=== PATIENT | female | born 1935 | race Caucasian/White ===

== ENCOUNTER 2016-09-11 11:57 | Inpatient (IN) | payer MEDICARE, OTHER ==
[~2016-09-11] VITALS: Ht 157.5 cm; Wt 44.5 kg
[~2016-09-11 11:57] MED LIST: ACETAMINOP160 MG/54 ORAL; ACTONEL35 MG ORAL; BENAZEPRIL HCL20 MG ORAL; COLACE100 MG ORAL; CYMBALTA30 MG ORAL; LASTACAFT3 ML BOTH EARS; LEVOTHYROXINE100 MC1 ORAL; LUMIGAN2.5 ML BOTH EYES; OMEPRAZOLE10 M1 ORAL; RISPERDAL0.5 MG ORAL; TAMSULOSIN HCL0.4 MG ORAL; VITAMIN B-1001 EACH PO; VITAMIN D400 INTLU ORAL
[2016-09-11 12:18] VITALS: BP 99/57
[2016-09-11] MEDS ORDERED: LEVOTHYROXINE88 MCG ORAL (12:41)
[2016-09-11] MEDS ORDERED: SULFAMETHOXAZO480 ML ORAL (12:41)
[2016-09-11] MEDS ORDERED: PRILOSEC OTC20 MG ORAL (12:41)
[2016-09-11] MEDS ORDERED: RISEDRONATE SOD35 MG PO (12:41)
[2016-09-11] MEDS ORDERED: ABILIFY2 MG ORAL (12:43)
--- NOTE | 2016-09-11 12:44 | Emergency Room Report ---
History of Present Illness General Chief Complaint: Nausea, Vomiting, and Diarrhea Source: Family Member, Medical Record Present Illness HPI Patient present with daughter for complaints of decreased oral intake patient has had increased vomiting and diarrhea over the past 2 days as well Daughter feels that the patient has also had difficulty swallowing Is no reports of fevers Patient is incontinent No other reports a fall or trauma Patient herself has severe underlying dementia history is not obtained and is very limited from the patient Allergies: Coded Allergies: NO KNOWN ALLERGIES (Unverified Allergy, Unknown, 03/22/15) Patient History Past Medical History: see triage record Pertinent Family History: none Reviewed Nursing Documentation: PMH: Agreed, PSxH: Agreed Nursing Documentation-PMH Past Medical History: No History, Except For Hx Hypertension: Yes Hx Neurological Problems: Yes - ambulate with assistance Review of Systems All Other Systems: negative except mentioned in HPI Physical Exam Vital Signs Date Time Temp Pulse Resp B/P Pulse Ox O2 Delivery O2 Flow Rate FiO2 09/11/16 12:04 96.8 99 18 97/62 94 Room Air Sp02 EP Interpretation: reviewed, normal General Appearance: no apparent distress Head: normocephalic, atraumatic Eyes: bilateral eye EOMI, bilateral eye PERRL ENT: hearing grossly normal, TMs + canals normal, uvula midline, dry mucus membranes Neck: full range of motion, supple, no meningismus, no bony tend Respiratory: no respiratory distress, no retraction, no accessory muscle use, crackles - Both lower lobes Cardiovascular #1: normal peripheral pulses, regular rate, rhythm, no edema, no gallop, no JVD, no murmur Gastrointestinal: normal bowel sounds, non tender, soft, no mass, no organomegaly, non-distended, no guarding, no hernia, no pulsatile mass, no rebound Genitourinary: no CVA tenderness Musculoskeletal: other - Patient does not follow full commands however no obvious focal deficit Neurologic: responsive, sensory intact Psychiatric: mood/affect normal Skin: warm/dry, palpation normal Lymphatic: normal inspection, no adenopathy Medical Decision Making Diagnostic Impression: Primary Impression: Nausea, vomiting, and diarrhea Additional Impressions: UTI (urinary tract infection) Sepsis ER Course Multiple differentials are considered including but not limited to intracranial , hemodynamic infectious pathology Patient's urine sample did show significant bacteria Patient's also clinically significantly dehydrated Initiated on broad-spectrum antibiotics and admitted for further inpatient care, Labs Test 09/11/16 13:00 09/12/16 05:20 White Blood Count 13.7 K/UL (4.8-10.8) Red Blood Count 4.30 M/UL (4.20-5.40) Hemoglobin 11.2 G/DL (12.0-16.0) Hematocrit 34.7 % (37.0-47.0) Mean Corpuscular Volume 81 FL (80-99) Mean Corpuscular Hemoglobin 26.0 PG (27.0-31.0) Mean Corpuscular Hemoglobin Concent 32.2 G/DL (32.0-36.0) Red Cell Distribution Width 12.5 % (11.6-14.8) Platelet Count 231 K/UL (150-450) Mean Platelet Volume 6.8 FL (6.5-10.1) Neutrophils (%) (Auto) 83.1 % (45.0-75.0) Lymphocytes (%) (Auto) 5.0 % (20.0-45.0) Monocytes (%) (Auto) 11.3 % (1.0-10.0) Eosinophils (%) (Auto) 0.0 % (0.0-3.0) Basophils (%) (Auto) 0.6 % (0.0-2.0) Prothrombin Time 10.7 SEC (9.30-11.50) Prothromb Time International Ratio 1.1 (0.9-1.1) Activated Partial Thromboplast Time 34 SEC (23-33) Urine Color Yellow Urine Appearance Slightly cloudy Urine pH 6 (4.5-8.0) Urine Specific [place] 1.015 (1.005-1.035) Urine Protein 3+ (NEGATIVE) Urine Glucose (UA) Negative (NEGATIVE) Urine Ketones 1+ (NEGATIVE) Urine Occult Blood 4+ (NEGATIVE) Urine Nitrite Negative (NEGATIVE) Urine Bilirubin Negative (NEGATIVE) Urine Urobilinogen Normal MG/DL (0.0-1.0) Urine Leukocyte Esterase 3+ (NEGATIVE) Urine RBC 5-10 /HPF (0 - 2) Urine WBC 40-60 /HPF (0 - 2) Urine Squamous Epithelial Cells Few /LPF (NONE/OCC) Urine Bacteria Moderate /HPF (NONE) Sodium Level 131 mEQ/L (135-145) Potassium Level 3.6 mEQ/L (3.4-4.9) Chloride Level 90 mEQ/L (98-107) Carbon Dioxide Level 24 mEQ/L (20-30) Anion Gap 17 (5-15) Blood Urea Nitrogen 27 mg/dL (7-23) Creatinine 1.3 mg/dL (0.5-0.9) Estimat Glomerular Filtration Rate mL/min (>60) Glucose Level 120 mg/dL (74-106) Calcium Level 8.7 mg/dL (8.6-10.2) Total Bilirubin < 0.2 mg/dL (0.0-1.2) Aspartate Amino Transf (AST/SGOT) 14 U/L (5-40) Alanine Aminotransferase (ALT/SGPT) 8 U/L (3-33) Alkaline Phosphatase 66 U/L (35-104) Total Creatine Kinase 50 U/L (26-140) Creatine Kinase MB < 1.5 ng/mL (< 3.8) Creatine Kinase MB Relative Index 3.0 Troponin I < 0.30 ng/mL (<=0.30) Total Protein 6.8 g/dL (6.6-8.7) Albumin 3.3 g/dL (3.5-5.2) Globulin 3.5 g/dL Albumin/Globulin Ratio 0.9 (1.0-2.7) Lipase 23 U/L (< 60) Rhythm Strip Diag. Results EP Interpretation: yes Rate: 88 Rhythm: NSR, no PVC's, no ectopy Chest X-Ray Diagnostic Results EP Interpretation: Yes Findings: no consolidation, no effusion, no pneumothorax Number of Views: 1 CT/MRI/US Diagnostic Results CT/MRI/US Diagnostic Results : Impression CT abdomen pelvisImpression: Gas within the endometrium. Correlate with any history of recent instrumentation. Otherwise, the possibility of endometritis should be considered Questionable trace pelvic fluid, uncertain etiology but not physiologic in a postmenopausal patient No definite acute process otherwise Diverticulosis. No evidence of diverticulitis Bilateral prominent extrarenal pelves, also demonstrated previously Other findings as noted, including posterior-lateral pericardial thickening versus fluid, degenerative spondylosis, right hip hardware, posterior dependent atelectatic changes, old granulomas calcifications within the liver, old thoracic and lumbar compression fractures CT head: no acute disease Last Vital Signs Date Time Temp Pulse Resp B/P Pulse Ox O2 Delivery O2 Flow Rate FiO2 09/11/16 12:18 97.0 98 16 99/57 96 Room Air Status: improved Disposition: ADMITTED INPATIENT Condition: Serious ESTEBAN CORREA D.O. Sep 11, 2016 12:44
[2016-09-11 13:20] LABS: BASOPHILS % (AUTO) 0.6 % (0.0-2.0); MEAN CORPUSCULAR HGB CONC 32.2 G/DL (32.0-36.0); MEAN CORPUSCULAR VOLUME 81 FL (80-99); MEAN PLATELET VOLUME 6.8 FL (6.5-10.1); MONOCYTES % (AUTO) 11.3 % (1.0-10.0); NEUTROPHILS % (AUTO) 83.1 % (45.0-75.0); PLATELET COUNT 231 K/UL (150-450); RED CELL DISTRIBUTION WIDTH 12.5 % (11.6-14.8); WHITE BLOOD COUNT 13.7 K/UL (4.8-10.8)
[2016-09-11 13:21] LABS: APPEARANCE,URINE SLIGHTLY CLOUDY; KETONES,URINE 1+ (NEGATIVE); LEUKOCYTE ESTERASE ,URINE 3+ (NEGATIVE); NITRITE,URINE NEGATIVE (NEGATIVE); PH,URINE 6 (4.5-8.0); PROTEIN,URINE 3+ (NEGATIVE); UROBILINOGEN,URINE NORMAL MG/DL (0.0-1.0)
[2016-09-11 13:25] LABS: INR 1.1 (0.9-1.1); PROTHROMBIN TIME 10.7 SEC (9.30-11.50)
[2016-09-11 13:35] LABS: BACTERIA,URINE MODERATE /HPF; SQUAMOUS EPITHELIAL CELL,UR FEW /LPF (NONE/OCC); WBC,URINE 40-60 /HPF (0 - 2)
[2016-09-11 13:40] LABS: ALANINE AMINOTRANSFERASE 8 U/L (3-33); ALBUMIN/GLOBULIN RATIO 0.9 (1.0-2.7); ANION GAP 17 (5-15); ASPARTATE AMINO TRANSFERASE 14 U/L (5-40); CALCIUM 8.7 mg/dL (8.6-10.2); CARBON DIOXIDE 24 mEQ/L (20-30); CHLORIDE 90 mEQ/L (98-107); CREATININE 1.3 mg/dL (0.5-0.9); HEMOLYSIS 6; LIPASE 23 U/L (< 60); POTASSIUM 3.6 mEQ/L (3.4-4.9); SODIUM 131 mEQ/L (135-145); TOTAL PROTEIN 6.8 g/dL (6.6-8.7); TROPONIN I < 0.30 ng/mL (<=0.30)
[2016-09-11] MEDS ORDERED: cefTRIAXone 1 GM in NS 55 ML IVPB ONE (13:45)
--- NOTE | 2016-09-11 13:48 | Diagnostic Imaging Report ---
Indication: Altered mental status Technique: spiral acquisitions obtained through the brain. Angled axial and coronal 5 x 5 mm slices were reconstructed. No IV contrast utilized. Radiation dose was minimized using automated exposure control Total dose length product 1361 mGycm. CTDIvol(s) 70 mGy Comparison: 03/22/2015 FINDINGS: No acute hemorrhage or edema. No mass effect or midline shift. There is age-related enlargement of the ventricles and extra axial CSF spaces. There is periventricular deep white matter ischemic change. Normal mason-white differentiation. Old lacunar infarcts are seen in the basal ganglia bilaterally. Visualized orbits are unremarkable. There is minimal ethmoid sinus disease on the right. The mastoids are clear.. Intact calvarium. Compared to the prior exam, previously demonstrated frontal scalp hematoma is no longer evident IMPRESSION: Chronic and age-related changes. Negative for acute intracranial bleed or mass effect The CT scanner at [facility] is accredited by the [employer] and the scans are performed using protocols designed to limit radiation exposure to as low as reasonably achievable to attain images of sufficient resolution adequate for diagnostic evaluation
[2016-09-11 13:50] LABS: CKMB < 1.5 ng/mL (< 3.8)
[2016-09-11 14:24] VITALS: BP 96/58
--- NOTE | 2016-09-11 14:48 | Diagnostic Imaging Report ---
Indication: Chest pain Technique: One view of the chest Comparison: 03/22/2015 Findings: Lungs and pleural spaces are clear. Heart size is normal. Aorta is tortuous ectatic and calcified. There is old healed fracture deformity of the mid shaft right clavicle. There are mitral annular calcifications. There are degenerative changes of the shoulders no significant change Impression: No acute process. Findings as noted
--- NOTE | 2016-09-11 14:48 | Diagnostic Imaging Report ---
Indication: VOMITING and diarrhea over the past 2 days Technique: Spiral acquisitions obtained through the abdomen and pelvis. No oral contrast utilized, per emergency room physician request No IV contrast utilized, per referring physician request.. Multiplanar reconstructions were generated. Total dose length product 451 mGycm. CTDIvol(s) 9 mGy Comparison: 11/30/2012 Findings: Lack of enteric contrast limits assessment of the GI tract. The appendix is normal the cecum is somewhat prominent, gas and fluid filled. The remainder of the colon is mostly gas filled. Small bowel loops are prominent, gas and fluid filled, without lorenza distention. There is questionably trace pelvic fluid surrounding the uterus. There are few colonic diverticula again demonstrated. No evidence of diverticulitis. The distal esophagus, stomach, duodenum are unremarkable. Lack of IV contrast limits assessment of the solid organs. Small amount of gas is seen within the endometrium. No definite endometrial thickening is evident. No uterine enlargement. No adnexal mass. The liver contains calcifications, presumably on the basis of old granulomatous disease. Gallbladder, bile ducts, pancreas, spleen, adrenals are unremarkable. There is a prominent right-sided extrarenal pelvis. No lorenza hydronephrosis. There is a prominent left extrarenal pelvis versus parapelvic cyst. Renal cortical cysts described on prior study are not evident on current non-infused exam. No renal calculi. No hydronephrosis, hydroureter, or ureteral calculus demonstrated. The included lung bases demonstrate posterior dependent atelectatic changes. The heart is mildly enlarged. There is posterolateral pericardial thickening versus fluid. The bones demonstrate degenerative proliferative changes of the lumbar spine. There is right hip hardware again demonstrated. Compression fracture deformities of L3, T12, T10 are again noted Impression: Gas within the endometrium. Correlate with any history of recent instrumentation. Otherwise, the possibility of endometritis should be considered Questionable trace pelvic fluid, uncertain etiology but not physiologic in a postmenopausal patient No definite acute process otherwise Diverticulosis. No evidence of diverticulitis Bilateral prominent extrarenal pelves, also demonstrated previously Other findings as noted, including posterior-lateral pericardial thickening versus fluid, degenerative spondylosis, right hip hardware, posterior dependent atelectatic changes, old granulomas calcifications within the liver, old thoracic and lumbar compression fractures The CT scanner at [facility] is accredited by the [employer] and the scans are performed using protocols designed to limit radiation exposure to as low as reasonably achievable to attain images of sufficient resolution adequate for diagnostic evaluation.
[2016-09-11 16:08] VITALS: BP 97/54
[2016-09-11] MEDS ORDERED: RisperiDONE 0.25mg tab ORAL PRN (16:15)
[2016-09-11] MEDS: D5 1/2NS w/KCl 20mEq 1,000 ML IV SCH (16:50)
[2016-09-11] MEDS: Ketotifen Fumarate 0.035% 5ml BOTH EYES SCH (18:19)
--- NOTE | 2016-09-11 19:35 | Geriatric Progress Note ---
Subjective Interval Events Patient brought to ED for several days of anorexia, lethargy. Found in ED to have relative hypotension, apparent volume depletion, and urinalysis c/w UTI. Admitted for tx and further evaluation. PMH: 1. Cognitive cognitive dysfunction, likely cerbrovascular. 2. Major depression. 3. Chronic pain syndrome. 4. Lability of pseudobulbar type. 5. HTN. 6. Legally blind. 7. GERD. 8. Osteoporosis. 9. Recurrent UTI. 10. S/p multiple extremity fxs. 11. Severe aortic stenosis. Initially relatively hypotensive, hydrated and given Ceftriaxone in ED. Currently mental status c/w baseline. Loud aortic systolic murmur. Suprapubic tenderness. Labs with leukocytosis, pyuria. CT abd/pelvis with ? air in uterus. Continue IV hydration, Ceftriaxone. Resume usual medications. Check echo. Dictated #[id number] Geriatric Geriatric Last 24 Hour Vital Signs Date Time Temp Pulse Resp B/P Pulse Ox O2 Delivery O2 Flow Rate FiO2 09/11/16 16:08 97.7 84 20 97/54 91 Room Air 09/11/16 14:29 97.0 88 16 96/58 95 Room Air 09/11/16 14:24 97.0 88 16 96/58 95 Room Air 09/11/16 12:18 97.0 98 16 99/57 96 Room Air 09/11/16 12:04 96.8 99 18 97/62 94 Room Air Laboratory Tests Test 09/11/16 13:00 White Blood Count 13.7 K/UL (4.8-10.8) H Red Blood Count 4.30 M/UL (4.20-5.40) Hemoglobin 11.2 G/DL (12.0-16.0) L Hematocrit 34.7 % (37.0-47.0) L Mean Corpuscular Volume 81 FL (80-99) Mean Corpuscular Hemoglobin 26.0 PG (27.0-31.0) L Mean Corpuscular Hemoglobin Concent 32.2 G/DL (32.0-36.0) Red Cell Distribution Width 12.5 % (11.6-14.8) Platelet Count 231 K/UL (150-450) Mean Platelet Volume 6.8 FL (6.5-10.1) Neutrophils (%) (Auto) 83.1 % (45.0-75.0) H Lymphocytes (%) (Auto) 5.0 % (20.0-45.0) L Monocytes (%) (Auto) 11.3 % (1.0-10.0) H Eosinophils (%) (Auto) 0.0 % (0.0-3.0) Basophils (%) (Auto) 0.6 % (0.0-2.0) Prothrombin Time 10.7 SEC (9.30-11.50) Prothromb Time International Ratio 1.1 (0.9-1.1) Activated Partial Thromboplast Time 34 SEC (23-33) H Urine Color Yellow Urine Appearance Slightly cloudy Urine pH 6 (4.5-8.0) Urine Specific [place] 1.015 (1.005-1.035) Urine Protein 3+ (NEGATIVE) H Urine Glucose (UA) Negative (NEGATIVE) Urine Ketones 1+ (NEGATIVE) H Urine Occult Blood 4+ (NEGATIVE) H Urine Nitrite Negative (NEGATIVE) Urine Bilirubin Negative (NEGATIVE) Urine Urobilinogen Normal MG/DL (0.0-1.0) Urine Leukocyte Esterase 3+ (NEGATIVE) H Urine RBC 5-10 /HPF (0 - 2) H Urine WBC 40-60 /HPF (0 - 2) H Urine Squamous Epithelial Cells Few /LPF (NONE/OCC) Urine Bacteria Moderate /HPF (NONE) H Sodium Level 131 mEQ/L (135-145) L Potassium Level 3.6 mEQ/L (3.4-4.9) Chloride Level 90 mEQ/L (98-107) L Carbon Dioxide Level 24 mEQ/L (20-30) Anion Gap 17 (5-15) H Blood Urea Nitrogen 27 mg/dL (7-23) H Creatinine 1.3 mg/dL (0.5-0.9) H Estimat Glomerular Filtration Rate mL/min (>60) Glucose Level 120 mg/dL (74-106) H Calcium Level 8.7 mg/dL (8.6-10.2) Total Bilirubin < 0.2 mg/dL (0.0-1.2) Aspartate Amino Transf (AST/SGOT) 14 U/L (5-40) Alanine Aminotransferase (ALT/SGPT) 8 U/L (3-33) Alkaline Phosphatase 66 U/L (35-104) Total Creatine Kinase 50 U/L (26-140) Creatine Kinase MB < 1.5 ng/mL (< 3.8) Creatine Kinase MB Relative Index 3.0 Troponin I < 0.30 ng/mL (<=0.30) Total Protein 6.8 g/dL (6.6-8.7) Albumin 3.3 g/dL (3.5-5.2) L Globulin 3.5 g/dL Albumin/Globulin Ratio 0.9 (1.0-2.7) L Lipase 23 U/L (< 60) Current Medications Medications (Trade) Dose Ordered Sig/Patricia Route PRN Reason Start Time Stop Time Status Last Admin Dose Admin Aripiprazole (Abilify) 2 mg DAILY ORAL 09/12/16 09:00 10/12/16 08:59 Benazepril HCl (Lotensin) 20 mg DAILY ORAL 09/12/16 09:00 10/12/16 08:59 Ceftriaxone Sodium/Sodium Chloride (Rocephin/Sodium Chloride) 55 ml @ 110 mls/hr Q24H IVPB 09/12/16 14:00 09/19/16 13:59 Dextrose/ Electrolytes (D5 0.45%NS W/ KCl 20mEq) 1,000 ml @ 75 mls/hr [id number] IV 09/11/16 17:00 10/11/16 16:59 09/11/16 16:50 Duloxetine HCl (Cymbalta) 30 mg DAILY ORAL 09/12/16 09:00 10/12/16 08:59 Ketotifen Fumarate (Zatidor) 1 drop TWICE A DAY BOTH EYES 09/11/16 18:00 10/11/16 17:59 09/11/16 18:19 Latanoprost (Xalatan) 1 drop BEDTIME BOTH EYES 09/11/16 21:00 10/11/16 20:59 Levothyroxine Sodium (Synthroid) 88 mcg DAILY@0630 ORAL 09/12/16 06:30 10/12/16 06:29 Non-Formulary Medication (Non-Formulary Med) 1 ea DAILY ORAL 09/12/16 09:00 10/12/16 08:59 UNV Risperidone (RisperDAL) 0.5 mg HSPRN PRN ORAL Agitation 09/11/16 16:15 10/11/16 16:14 Tamsulosin HCl 0.4 mg 0.4 mg BEDTIME ORAL 09/11/16 21:00 10/11/16 20:59 Height (Feet): 5 Height (Inches): 2.00 Weight (Pounds): 98 KERRI GUILLEN Sep 11, 2016 19:35
[2016-09-11 19:57] VITALS: BP 150/76
[2016-09-11] MEDS: Tamsulosin 0.4mg cap ORAL SCH (20:24)
[2016-09-11] MEDS: Nuedexta Capsule 20/10mg ORAL SCH (20:24)
[2016-09-11] MEDS: Ramelteon 8mg tab (Approved for Delirium use only) ORAL SCH (20:24)
[2016-09-12] VITALS: BP 128/63
[2016-09-12 04:00] VITALS: BP 145/70
[2016-09-12] MEDS: D5 1/2NS w/KCl 20mEq 1,000 ML IV SCH ×2 (06:17→17:30)
[2016-09-12 07:26] LABS: BASOPHILS % (AUTO) 0.7 % (0.0-2.0); LYMPHOCYTES % (AUTO) 7.2 % (20.0-45.0); MEAN CORPUSCULAR HEMOGLOBIN 25.9 PG (27.0-31.0); MEAN CORPUSCULAR HGB CONC 31.9 G/DL (32.0-36.0); MEAN CORPUSCULAR VOLUME 81 FL (80-99); MEAN PLATELET VOLUME 7.1 FL (6.5-10.1); MONOCYTES % (AUTO) 12.7 % (1.0-10.0); NEUTROPHILS % (AUTO) 79.4 % (45.0-75.0); PLATELET COUNT 232 K/UL (150-450); RED BLOOD COUNT 4.13 M/UL (4.20-5.40); RED CELL DISTRIBUTION WIDTH 12.3 % (11.6-14.8); WHITE BLOOD COUNT 10.9 K/UL (4.8-10.8)
[2016-09-12 07:39] LABS: ANION GAP 17 (5-15); CALCIUM 8.2 mg/dL (8.6-10.2); CARBON DIOXIDE 24 mEQ/L (20-30); CHLORIDE 94 mEQ/L (98-107); CREATININE 0.9 mg/dL (0.5-0.9); HEMOLYSIS 0; MAGNESIUM 1.7 mg/dL (1.7-2.5); POTASSIUM 3.6 mEQ/L (3.4-4.9); SODIUM 135 mEQ/L (135-145)
[2016-09-12 07:50] VITALS: BP 117/58
[2016-09-12] MEDS: Ketotifen Fumarate 0.035% 5ml BOTH EYES SCH ×2 (08:18→17:29)
[2016-09-12] MEDS: DULoxetine 30mg cap ORAL SCH (08:18)
[2016-09-12] MEDS: Nuedexta Capsule 20/10mg ORAL SCH ×2 (08:19→20:32)
[2016-09-12] MEDS: ARIPiprazole 2mg tab ORAL SCH (08:44)
[2016-09-12 11:02] VITALS: BP 115/59
[2016-09-12] MEDS: cefTRIAXone 1 GM in NS 55 ML IVPB SCH (13:46)
[2016-09-12 16:00] VITALS: BP 130/72
--- NOTE | 2016-09-12 17:11 | Geriatric Progress Note ---
Assessment/Plan Problems: (1) Blindness (2) Vascular dementia (3) Volume depletion (4) Mitral regurgitation and aortic stenosis (5) Depression (6) Chronic pain syndrome (7) Anxiety with somatization (8) UTI (urinary tract infection) (9) Altered mental status Assessment/Plan Improved re UTI, volume depletion, encephalopathy. Poor oral intake, likely due to weakness, encephalopathy, hopefully will improve. Severe valvular disease, likely contributing to poor function. Await cardiology evaluation, but doubt candidate for definitive tx. Possible pelvic pathology, but unlikely to tolerate diagnostic intervention or tx, monitor for now. Above issues discussed in detail with dtr, including risk-benefit of invasive diagnostic procedures. Dtr expresses understanding and concurs with conservative approach for now. Continue present tx, f/u labs. Discussed with: patient, family, hospital staff Subjective Interval Events Patient more alert, also more dysphoric than yesterday. Demanding, but denies pain! On Cymbalta 30 due to mistake in reconciliation, however, given overall status, will maintain for now. Evaluated by S.T., no definite aspiration, but high risk. Dietary modification made, S.T. to continue. Oral intake poor so far. Echo confirms advanced , also with severe MR, EF 55%, probably represents significantly impaired forward flow. Cardiology evaluation requested. Air in endometrium discussed with Octavia Aviles. Some possibility of significant pathology, e.g. fistula, but without associated signs of inflammation, etc. not particularly likely. Staff notes, some increase in calling out, but not aggressive. Constitutional: Denies: chills, fever, pain, sweats Respiratory: Reports: LAWLER/SOB - vague c/o re breathing not right, but does not further specify. Cardiovascular: Denies: chest pain Gastrointestinal/Abdominal: Denies: abdominal pain Geriatric Geriatric Last 24 Hour Vital Signs Date Time Temp Pulse Resp B/P Pulse Ox O2 Delivery O2 Flow Rate FiO2 09/12/16 16:00 99.3 96 22 130/72 94 Room Air 09/12/16 11:02 98.1 91 15 115/59 93 Room Air 09/12/16 08:19 117/58 09/12/16 07:50 98.4 88 15 117/58 93 Room Air 09/12/16 04:00 98.2 97 18 145/70 97 Room Air 09/12/16 00:00 98.6 90 19 128/63 91 Room Air 09/11/16 19:57 98.2 98 22 150/76 91 Room Air Intake and Output 09/11/16 09/12/16 19:00 07:00 Intake Total 150 ml 1020 ml Balance 150 ml 1020 ml Intake Oral 0 ml 120 ml IV Total 150 ml 900 ml # Voids 4 Laboratory Tests Test 09/12/16 05:20 White Blood Count 10.9 K/UL (4.8-10.8) H Red Blood Count 4.13 M/UL (4.20-5.40) L Hemoglobin 10.7 G/DL (12.0-16.0) L Hematocrit 33.5 % (37.0-47.0) L Mean Corpuscular Volume 81 FL (80-99) Mean Corpuscular Hemoglobin 25.9 PG (27.0-31.0) L Mean Corpuscular Hemoglobin Concent 31.9 G/DL (32.0-36.0) L Red Cell Distribution Width 12.3 % (11.6-14.8) Platelet Count 232 K/UL (150-450) Mean Platelet Volume 7.1 FL (6.5-10.1) Neutrophils (%) (Auto) 79.4 % (45.0-75.0) H Lymphocytes (%) (Auto) 7.2 % (20.0-45.0) L Monocytes (%) (Auto) 12.7 % (1.0-10.0) H Eosinophils (%) (Auto) 0.0 % (0.0-3.0) Basophils (%) (Auto) 0.7 % (0.0-2.0) Sodium Level 135 mEQ/L (135-145) Potassium Level 3.6 mEQ/L (3.4-4.9) Chloride Level 94 mEQ/L (98-107) L Carbon Dioxide Level 24 mEQ/L (20-30) Anion Gap 17 (5-15) H Blood Urea Nitrogen 17 mg/dL (7-23) Creatinine 0.9 mg/dL (0.5-0.9) Estimat Glomerular Filtration Rate mL/min (>60) Glucose Level 116 mg/dL (74-106) H Calcium Level 8.2 mg/dL (8.6-10.2) L Magnesium Level 1.7 mg/dL (1.7-2.5) Current Medications Medications (Trade) Dose Ordered Sig/Patricia Route PRN Reason Start Time Stop Time Status Last Admin Dose Admin Alendronate Sodium (Fosamax) 70 mg QWEEK ORAL 09/15/16 09:00 10/15/16 08:59 Aripiprazole (Abilify) 2 mg DAILY ORAL 09/12/16 09:00 10/12/16 08:59 09/12/16 08:44 Benazepril HCl (Lotensin) 20 mg DAILY ORAL 09/12/16 09:00 10/12/16 08:59 Ceftriaxone Sodium/Sodium Chloride (Rocephin/Sodium Chloride) 55 ml @ 110 mls/hr Q24H IVPB 09/12/16 14:00 09/19/16 13:59 09/12/16 13:46 Dextromethorphan/ Quinidine (Nuedexta Capsule) 1 cap Q12HR ORAL 09/11/16 21:00 10/11/16 20:59 09/12/16 08:19 Dextrose/ Electrolytes (D5 0.45%NS W/ KCl 20mEq) 1,000 ml @ 75 mls/hr [id number] IV 09/11/16 17:00 10/11/16 16:59 09/12/16 06:17 Duloxetine HCl (Cymbalta) 30 mg DAILY ORAL 09/12/16 09:00 10/12/16 08:59 09/12/16 08:18 Ketotifen Fumarate (Zatidor) 1 drop TWICE A DAY BOTH EYES 09/11/16 18:00 10/11/16 17:59 09/12/16 08:18 Latanoprost (Xalatan) 1 drop BEDTIME BOTH EYES 09/11/16 21:00 10/11/16 20:59 09/11/16 20:24 Levothyroxine Sodium (Synthroid) 88 mcg DAILY@0630 ORAL 09/12/16 06:30 10/12/16 06:29 09/12/16 06:19 Ramelteon (Rozerem) 8 mg QHS ORAL 09/11/16 21:00 10/11/16 20:59 09/11/16 20:24 Risperidone (RisperDAL) 0.5 mg HSPRN PRN ORAL Agitation 09/11/16 16:15 10/11/16 16:14 Tamsulosin HCl 0.4 mg 0.4 mg BEDTIME ORAL 09/11/16 21:00 10/11/16 20:59 09/11/16 20:24 Height (Feet): 5 Height (Inches): 2.00 Weight (Pounds): 98 General Appearance: alert, other - moderately dysphoric, but not c/o pain. Head: normocephalic ENT: normal voice Neck: full range of motion, no mass Respiratory: lungs clear Cardiovascular: regular rate, rhythm, systolic murmur Gastrointestinal: normal bowel sounds, non tender - suprapubic tenderness seen yesterday resolved., soft, no mass, no organomegaly, no guarding Edema: no edema noted Generalized KERRI GUILLEN Sep 12, 2016 17:11
[2016-09-12 20:00] VITALS: BP 112/54
[2016-09-12] MEDS: Ramelteon 8mg tab (Approved for Delirium use only) ORAL SCH (20:32)
[2016-09-12] MEDS: Tamsulosin 0.4mg cap ORAL SCH (20:32)
[2016-09-13 00:45] VITALS: BP 121/67
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
[2016-09-13 04:44] VITALS: BP 133/66
[2016-09-13] MEDS: D5 1/2NS w/KCl 20mEq 1,000 ML IV SCH (06:00)
[2016-09-13 07:07] LABS: BASOPHILS % (AUTO) 0.8 % (0.0-2.0); EOSINOPHILS % (AUTO) 0.7 % (0.0-3.0); LYMPHOCYTES % (AUTO) 13.4 % (20.0-45.0); MEAN CORPUSCULAR VOLUME 81 FL (80-99); MEAN PLATELET VOLUME 6.9 FL (6.5-10.1); MONOCYTES % (AUTO) 14.9 % (1.0-10.0); NEUTROPHILS % (AUTO) 70.2 % (45.0-75.0); PLATELET COUNT 238 K/UL (150-450); RED BLOOD COUNT 3.83 M/UL (4.20-5.40); RED CELL DISTRIBUTION WIDTH 12.3 % (11.6-14.8); WHITE BLOOD COUNT 7.4 K/UL (4.8-10.8)
[2016-09-13 07:30] LABS: ANION GAP 15 (5-15); CALCIUM 8.2 mg/dL (8.6-10.2); CARBON DIOXIDE 24 mEQ/L (20-30); CHLORIDE 94 mEQ/L (98-107); CREATININE 0.6 mg/dL (0.5-0.9); HEMOLYSIS 3; POTASSIUM 3.9 mEQ/L (3.4-4.9); SODIUM 133 mEQ/L (135-145)
[2016-09-13 08:06] VITALS: BP 127/68
[2016-09-13] MEDS: Nuedexta Capsule 20/10mg ORAL SCH ×2 (08:31→21:13)
[2016-09-13] MEDS: ARIPiprazole 2mg tab ORAL SCH (08:31)
[2016-09-13] MEDS: DULoxetine 30mg cap ORAL SCH (08:31)
[2016-09-13] MEDS: Ketotifen Fumarate 0.035% 5ml BOTH EYES SCH ×2 (08:32→17:12)
--- NOTE | 2016-09-13 10:55 | General Progress Note ---
Assessment/Plan Assessment/Plan Blindness vascular dementia Volume depletion UTI proteus Mirabilus sensitive to IV rocephin Chronic pain Sever Aortic stenosis based on echocardiogram 2012 Hyponatremia Mild Continue care IV Fluids-- changed to D5NS, gentle hydration, monitor UOP,monitor for signs of overload Await cards input OV rocephin PT/OT continue home meds Subjective Allergies: Coded Allergies: NO KNOWN ALLERGIES (Unverified Allergy, Unknown, 03/22/15) Subjective eyes closed, says yes in response to her name, c/o back pain Objective Last 24 Hour Vital Signs Date Time Temp Pulse Resp B/P Pulse Ox O2 Delivery O2 Flow Rate FiO2 09/13/16 08:31 127/68 09/13/16 08:06 96.8 87 19 127/68 99 Room Air 09/13/16 04:44 97.6 75 20 133/66 92 Room Air 09/13/16 00:45 97.4 83 20 121/67 94 Room Air 09/12/16 20:00 98.1 94 20 112/54 91 Room Air 09/12/16 16:00 99.3 96 22 130/72 94 Room Air 09/12/16 11:02 98.1 91 15 115/59 93 Room Air Intake and Output 09/12/16 09/13/16 19:00 07:00 Intake Total 1070 ml 995 ml Balance 1070 ml 995 ml Intake Oral 340 ml 60 ml IV Total 730 ml 935 ml # Voids 5 2 Laboratory Tests 09/13/16 04:45: White Blood Count 7.4, Red Blood Count 3.83L, Hemoglobin 9.9L, Hematocrit 31.1L , Mean Corpuscular Volume 81, Mean Corpuscular Hemoglobin 26.0L, Mean Corpuscular Hemoglobin Concent 32.0, Red Cell Distribution Width 12.3, Platelet Count 238, Mean Platelet Volume 6.9, Neutrophils (%) (Auto) 70.2, Lymphocytes (% ) (Auto) 13.4L, Monocytes (%) (Auto) 14.9H, Eosinophils (%) (Auto) 0.7, Basophils (%) (Auto) 0.8, Sodium Level 133L, Potassium Level 3.9, Chloride Level 94L, Carbon Dioxide Level 24, Anion Gap 15, Blood Urea Nitrogen 9, Creatinine 0.6, Estimat Glomerular Filtration Rate , Glucose Level 101, Calcium Level 8.2L Height (Feet): 5 Height (Inches): 2.00 Weight (Pounds): 98 General Appearance: no apparent distress Neck: non-tender Cardiovascular: regular rhythm Respiratory/Chest: rhonchi - right Abdomen: non tender MICHELLE MELARA M.D. Sep 13, 2016 10:55
[2016-09-13] MEDS: D5NS 1,000 ML IV SCH (11:45)
[2016-09-13] MEDS: cefTRIAXone 1 GM in NS 55 ML IVPB SCH (13:12)
[2016-09-13 16:05] VITALS: BP 120/65
[2016-09-13 20:00] VITALS: BP 122/60
[2016-09-13] MEDS: Tamsulosin 0.4mg cap ORAL SCH (21:13)
[2016-09-13] MEDS: Ramelteon 8mg tab (Approved for Delirium use only) ORAL SCH (21:14)
[2016-09-14] VITALS (7 sets, daily range): BP systolic 121–145; BP diastolic 50–77
[2016-09-14] MEDS: D5NS 1,000 ML IV SCH ×2 (00:38→13:09)
[2016-09-14 07:12] LABS: ALANINE AMINOTRANSFERASE 13 U/L (3-33); ALBUMIN/GLOBULIN RATIO 0.8 (1.0-2.7); ANION GAP 14 (5-15); ASPARTATE AMINO TRANSFERASE 22 U/L (5-40); CALCIUM 8.3 mg/dL (8.6-10.2); CARBON DIOXIDE 26 mEQ/L (20-30); CHLORIDE 99 mEQ/L (98-107); CREATININE 0.6 mg/dL (0.5-0.9); HEMOLYSIS 2; POTASSIUM 3.7 mEQ/L (3.4-4.9); SODIUM 139 mEQ/L (135-145); TOTAL PROTEIN 5.8 g/dL (6.6-8.7)
[2016-09-14 07:30] LABS: BASOPHILS % (AUTO) 0.6 % (0.0-2.0); LYMPHOCYTES % (AUTO) 17.3 % (20.0-45.0); MEAN CORPUSCULAR HEMOGLOBIN 26.5 PG (27.0-31.0); MEAN CORPUSCULAR HGB CONC 32.2 G/DL (32.0-36.0); MEAN CORPUSCULAR VOLUME 82 FL (80-99); MEAN PLATELET VOLUME 6.6 FL (6.5-10.1); MONOCYTES % (AUTO) 11.3 % (1.0-10.0); NEUTROPHILS % (AUTO) 69.8 % (45.0-75.0); PLATELET COUNT 240 K/UL (150-450); RED BLOOD COUNT 4.04 M/UL (4.20-5.40); RED CELL DISTRIBUTION WIDTH 12.7 % (11.6-14.8)
[2016-09-14] MEDS: Ketotifen Fumarate 0.035% 5ml BOTH EYES SCH ×2 (08:15→18:07)
[2016-09-14] MEDS: DULoxetine 30mg cap ORAL SCH (08:16)
[2016-09-14] MEDS: Nuedexta Capsule 20/10mg ORAL SCH ×2 (08:16→20:58)
[2016-09-14] MEDS: ARIPiprazole 2mg tab ORAL SCH (08:16)
[2016-09-14] MEDS ORDERED: D5NS 1000ml IV ONE (08:37)
--- NOTE | 2016-09-14 10:30 | General Progress Note ---
Assessment/Plan Assessment/Plan Blindness vascular dementia Volume depletion UTI proteus Mirabilus sensitive to IV rocephin Chronic pain Sever Aortic stenosis based on echocardiogram 2012 Hyponatremia Mild Continue care IV Fluids-- changed to D5NS, gentle hydration, monitor UOP,monitor for signs of overload Await cards input OV rocephin PT/OT continue home meds Subjective Allergies: Coded Allergies: NO KNOWN ALLERGIES (Unverified Allergy, Unknown, 03/22/15) Subjective patient barely opens her eyes in response to her name, says I am OK , " its good " Objective Last 24 Hour Vital Signs Date Time Temp Pulse Resp B/P Pulse Ox O2 Delivery O2 Flow Rate FiO2 09/14/16 08:16 129/72 09/14/16 07:55 97.0 87 19 129/72 97 Room Air 09/14/16 04:00 97.7 81 22 145/72 95 Room Air 09/14/16 00:00 96.4 70 20 125/50 91 Room Air 09/13/16 20:00 97.3 83 22 122/60 97 Room Air 09/13/16 16:05 96.9 77 20 120/65 99 Room Air Intake and Output 09/13/16 09/14/16 19:00 07:00 Intake Total 515 ml 480 ml Balance 515 ml 480 ml Intake Oral 150 ml IV Total 365 ml 480 ml # Voids 2 4 Laboratory Tests 09/14/16 05:20: White Blood Count 7.0, Red Blood Count 4.04L, Hemoglobin 10.7L, Hematocrit 33.2L , Mean Corpuscular Volume 82, Mean Corpuscular Hemoglobin 26.5L, Mean Corpuscular Hemoglobin Concent 32.2, Red Cell Distribution Width 12.7, Platelet Count 240, Mean Platelet Volume 6.6, Neutrophils (%) (Auto) 69.8, Lymphocytes (% ) (Auto) 17.3L, Monocytes (%) (Auto) 11.3H, Eosinophils (%) (Auto) 1.0, Basophils (%) (Auto) 0.6, Sodium Level 139, Potassium Level 3.7, Chloride Level 99, Carbon Dioxide Level 26, Anion Gap 14, Blood Urea Nitrogen 6L, Creatinine 0.6, Estimat Glomerular Filtration Rate , Glucose Level 101, Calcium Level 8.3L , Total Bilirubin < 0.2, Aspartate Amino Transf (AST/SGOT) 22, Alanine Aminotransferase (ALT/SGPT) 13, Alkaline Phosphatase 58, Total Protein 5.8L, Albumin 2.6L, Globulin 3.2, Albumin/Globulin Ratio 0.8L Height (Feet): 5 Height (Inches): 2.00 Weight (Pounds): 98 General Appearance: no apparent distress Neck: non-tender Cardiovascular: normal rate Respiratory/Chest: rhonchi - bilaterally Abdomen: soft MICHELLE MELARA M.D. Sep 14, 2016 10:30
[2016-09-14] MEDS: Piperacillin/Tazobactam 3.375 GM in D5W 110 ML IVPB SCH ×2 (14:08→20:58)
[2016-09-14] MEDS: Ramelteon 8mg tab (Approved for Delirium use only) ORAL SCH (20:58)
[2016-09-14] MEDS: Tamsulosin 0.4mg cap ORAL SCH (20:58)
[2016-09-15] MEDS: D5NS 1,000 ML IV SCH ×3 (03:00→17:59)
[2016-09-15 03:41] VITALS: BP 120/61
[2016-09-15] MEDS: Piperacillin/Tazobactam 3.375 GM in D5W 110 ML IVPB SCH ×3 (05:00→20:36)
[2016-09-15 07:46] LABS: BASOPHILS % (AUTO) 0.4 % (0.0-2.0); MEAN CORPUSCULAR HGB CONC 31.6 G/DL (32.0-36.0); MEAN CORPUSCULAR VOLUME 82 FL (80-99); MEAN PLATELET VOLUME 6.4 FL (6.5-10.1); MONOCYTES % (AUTO) 10.6 % (1.0-10.0); PLATELET COUNT 337 K/UL (150-450); RED BLOOD COUNT 4.44 M/UL (4.20-5.40); RED CELL DISTRIBUTION WIDTH 12.5 % (11.6-14.8); WHITE BLOOD COUNT 7.7 K/UL (4.8-10.8)
[2016-09-15 08:00] VITALS: BP 157/77
[2016-09-15] MEDS: Ketotifen Fumarate 0.035% 5ml BOTH EYES SCH ×2 (08:24→17:04)
[2016-09-15] MEDS: ARIPiprazole 2mg tab ORAL SCH (08:24)
[2016-09-15] MEDS: DULoxetine 30mg cap ORAL SCH (08:24)
[2016-09-15] MEDS: Nuedexta Capsule 20/10mg ORAL SCH ×2 (08:24→20:37)
[2016-09-15 08:25] LABS: ANION GAP 16 (5-15); CALCIUM 8.7 mg/dL (8.6-10.2); CARBON DIOXIDE 26 mEQ/L (20-30); CHLORIDE 97 mEQ/L (98-107); CREATININE 0.7 mg/dL (0.5-0.9); HEMOLYSIS 2; SODIUM 139 mEQ/L (135-145)
[2016-09-15 12:00] VITALS: BP 140/73
[2016-09-15] MEDS ORDERED: D5NS 1000ml IV ONE (15:11)
--- NOTE | 2016-09-15 15:37 | Cardiology Report ---
APPROVED REPORT EXAM: Two-dimensional and M-mode echocardiogram with Doppler and color Doppler. INDICATION Aortic Valve Disease M-Mode DIMENSIONS IVSd1.2 (0.7-1.1cm)Left Atrium (MM)3.8 (1.6-4.0cm) LVDd3.9 (3.5-5.6cm)Aortic Root2.9 (2.0-3.7cm) PWd0.8 (0.7-1.1cm)Aortic Cusp Exc.0.6 (1.5-2.0cm) LVDs1.4 (2.5-4.0cm) PWs1.7 cm Technically difficult study due to poor acoustic windows. Study quality precludes accurate assessment of regional wall motion. Normal left ventricular chamber size, systolic function and wall motion. Left ventricular ejection fraction estimated to be 55 %. Mild left ventricular hypertrophy. No evidence of pericardial effusion. All other cardiac chamber sizes are within normal limits. Aortic valve calcification with decreased cusp excursion c/w severe aortic stenosis. Mildly thickened mitral valve leaflets with normal excursion. Heavy mitral annulus and aortic root calcification. Normal pulmonic valve structure. Normal tricuspid valve structure. A color flow and spectral Doppler study was performed and revealed: Trace aortic insufficiency. Peak aortic valve gradient of 71 mmHg and a mean of 45 mmHg. Aortic valve area 1.0 cm2 calculated by continuity equation. Severe mitral regurgitation. Mitral diastolic velocities shows E/A near equalization suggesting beginning of reduced left ventricular relaxation c/w diastolic dysfunction. Mild tricuspid regurgitation. Tricuspid systolic velocities suggests peak right ventricular systolic pressure of 51 mmHg, consistent with moderate pulmonary hypertension. Trace pulmonic regurgitation present.
[2016-09-15 16:00] VITALS: BP 111/53
--- NOTE | 2016-09-15 17:05 | Cardiology Report ---
APPROVED REPORT EKG Measurement Heart [id number] Sinus rhythm with premature atrial complexes Otherwise normal ECG
--- NOTE | 2016-09-15 17:49 | Geriatric Progress Note ---
Assessment/Plan Problems: (1) Blindness (2) Vascular dementia (3) Volume depletion (4) Mitral regurgitation and aortic stenosis (5) Depression (6) Chronic pain syndrome (7) Anxiety with somatization (8) UTI (urinary tract infection) (9) Altered mental status Assessment/Plan Clinically improving. Continue Zosyn to complete 7-10d course. S.T. to advance diet as tolerated. Begin P.T. to mobilize as tolerated. Cardiology to evaluate re valvular disease. If patient maintains adequate intake, consider LLOC. Decrease IVF rate slightly. Discussed with: hospital staff Subjective Interval Events Patient awake, responses partially in Iranian, limited. C/o neck and abdominal pain, but not vehemently. Intake variable but seems improved overall. Started on Zosyn for ESBL E coli in urine along with P mirabilis. Staff reports behavior has been calm. Dtr asked about advancing diet. Constitutional: Denies: chills, fever, sweats Respiratory: Denies: shortness of breath Cardiovascular: Denies: chest pain Gastrointestinal/Abdominal: Reports: abdominal pain, Denies: nausea, vomiting Genitourinary: Denies: dysuria Geriatric Geriatric Last 24 Hour Vital Signs Date Time Temp Pulse Resp B/P Pulse Ox O2 Delivery O2 Flow Rate FiO2 09/15/16 16:00 98.2 93 18 111/53 95 Room Air 09/15/16 12:00 98.2 86 18 140/73 95 Room Air 09/15/16 08:24 157/77 09/15/16 08:00 97.0 93 18 157/77 95 Room Air 09/15/16 03:41 97.3 79 20 120/61 90 Room Air 09/14/16 20:00 98.1 80 18 121/58 93 Room Air Intake and Output 09/14/16 09/15/16 19:00 07:00 Intake Total 740.0 ml 615.0 ml Balance 740.0 ml 615.0 ml Intake Oral 180 ml IV Total 560.0 ml 615.0 ml # Voids 1 2 Laboratory Tests Test 09/15/16 05:20 White Blood Count 7.7 K/UL (4.8-10.8) Red Blood Count 4.44 M/UL (4.20-5.40) Hemoglobin 11.6 G/DL (12.0-16.0) L Hematocrit 36.6 % (37.0-47.0) L Mean Corpuscular Volume 82 FL (80-99) Mean Corpuscular Hemoglobin 26.0 PG (27.0-31.0) L Mean Corpuscular Hemoglobin Concent 31.6 G/DL (32.0-36.0) L Red Cell Distribution Width 12.5 % (11.6-14.8) Platelet Count 337 K/UL (150-450) Mean Platelet Volume 6.4 FL (6.5-10.1) L Neutrophils (%) (Auto) 72.0 % (45.0-75.0) Lymphocytes (%) (Auto) 16.0 % (20.0-45.0) L Monocytes (%) (Auto) 10.6 % (1.0-10.0) H Eosinophils (%) (Auto) 1.0 % (0.0-3.0) Basophils (%) (Auto) 0.4 % (0.0-2.0) Sodium Level 139 mEQ/L (135-145) Potassium Level 4.0 mEQ/L (3.4-4.9) Chloride Level 97 mEQ/L (98-107) L Carbon Dioxide Level 26 mEQ/L (20-30) Anion Gap 16 (5-15) H Blood Urea Nitrogen 5 mg/dL (7-23) L Creatinine 0.7 mg/dL (0.5-0.9) Estimat Glomerular Filtration Rate mL/min (>60) Glucose Level 86 mg/dL (74-106) Calcium Level 8.7 mg/dL (8.6-10.2) Current Medications Medications (Trade) Dose Ordered Sig/Patricia Route PRN Reason Start Time Stop Time Status Last Admin Dose Admin Alendronate Sodium (Fosamax) 70 mg QWEEK ORAL 09/15/16 09:00 10/15/16 08:59 09/15/16 08:25 Aripiprazole (Abilify) 2 mg DAILY ORAL 09/12/16 09:00 10/12/16 08:59 09/15/16 08:24 Benazepril HCl (Lotensin) 20 mg DAILY ORAL 09/12/16 09:00 10/12/16 08:59 09/15/16 08:24 Dextromethorphan/ Quinidine 1 cap 1 cap Q12HR ORAL 09/11/16 21:00 10/11/16 20:59 09/15/16 08:24 Dextrose/Sodium Chloride 1,000 ml @ 75 mls/hr [id number] IV 09/13/16 11:00 10/13/16 10:59 09/15/16 16:29 Duloxetine HCl (Cymbalta) 30 mg DAILY ORAL 09/12/16 09:00 10/12/16 08:59 09/15/16 08:24 Ketotifen Fumarate (Zatidor) 1 drop TWICE A DAY BOTH EYES 09/11/16 18:00 10/11/16 17:59 09/15/16 17:04 Latanoprost (Xalatan) 1 drop BEDTIME BOTH EYES 09/11/16 21:00 10/11/16 20:59 09/14/16 20:58 Levothyroxine Sodium (Synthroid) 88 mcg DAILY@0630 ORAL 09/12/16 06:30 10/12/16 06:29 09/15/16 05:00 Piperacillin Sod/ Tazobactam Sod/ Dextrose (Zosyn/D5W) 110 ml @ 27.5 mls/hr Q8HR IVPB 09/14/16 14:00 09/21/16 13:59 09/15/16 13:40 Ramelteon (Rozerem) 8 mg QHS ORAL 09/11/16 21:00 10/11/16 20:59 09/14/16 20:58 Risperidone (RisperDAL) 0.5 mg HSPRN PRN ORAL Agitation 09/11/16 16:15 10/11/16 16:14 09/13/16 21:14 Tamsulosin HCl (Flomax) 0.4 mg BEDTIME ORAL 09/11/16 21:00 10/11/16 20:59 09/14/16 20:58 Height (Feet): 5 Height (Inches): 2.00 Weight (Pounds): 98 General Appearance: alert, other - mildly dysphoric Head: normocephalic, atraumatic Neck: full range of motion, no mass Respiratory: lungs clear Cardiovascular: regular rate, rhythm Gastrointestinal: normal bowel sounds, non tender, soft, no mass, no organomegaly, non-distended, no guarding Musculoskeletal: no calf tenderness Edema: no edema noted Generalized Neurologic: no new focality KERRI GUILLEN Sep 15, 2016 17:49
[2016-09-15 20:00] VITALS: BP_SYST 144; BP_SYST 148; BP_DIAS 85; BP_DIAS 89
[2016-09-15] MEDS: Ramelteon 8mg tab (Approved for Delirium use only) ORAL SCH (20:37)
[2016-09-15] MEDS: Tamsulosin 0.4mg cap ORAL SCH (20:37)
[2016-09-16] VITALS: BP 146/84
[2016-09-16 04:00] VITALS: BP 120/69
[2016-09-16] MEDS: Piperacillin/Tazobactam 3.375 GM in D5W 110 ML IVPB SCH (04:07)
[2016-09-16 08:21] VITALS: BP 122/65
[2016-09-16] MEDS: Nuedexta Capsule 20/10mg ORAL SCH ×2 (09:02→21:14)
[2016-09-16] MEDS: Ketotifen Fumarate 0.035% 5ml BOTH EYES SCH ×2 (09:02→18:00)
[2016-09-16] MEDS: DULoxetine 30mg cap ORAL SCH (09:02)
[2016-09-16] MEDS: ARIPiprazole 2mg tab ORAL SCH (09:02)
--- NOTE | 2016-09-16 12:18 | Cardiology Progress Note ---
Assessment/Plan Assessment/Plan MR silva UTI no indication nor candidacy for any treatment for valvular disease at this time excpet possibley with meds once needed [id number] Objective Last 24 Hour Vital Signs Date Time Temp Pulse Resp B/P Pulse Ox O2 Delivery O2 Flow Rate FiO2 09/16/16 09:03 122/65 09/16/16 08:21 98.2 81 18 122/65 91 Room Air 09/16/16 04:00 98.9 94 18 120/69 93 Room Air 09/16/16 00:00 98.2 87 18 146/84 94 Room Air 09/15/16 20:00 98.2 92 18 148/85 94 Room Air 09/15/16 16:00 98.2 93 18 111/53 95 Room Air Intake and Output 09/15/16 09/16/16 19:00 07:00 Intake Total 475.0 ml 602.5 ml Balance 475.0 ml 602.5 ml Intake Oral 240 ml 160 ml IV Total 235.0 ml 442.5 ml # Voids 2 3 FRANCIS VELEZ Sep 16, 2016 12:18
[2016-09-16 12:34] VITALS: BP 143/65
[2016-09-16] MEDS: D5NS 1,000 ML IV SCH (14:28)
[2016-09-16] MEDS: Piperacillin/Tazobactam 3.375 GM in NS 110 ML IVPB SCH ×2 (14:40→21:18)
[2016-09-16 16:35] VITALS: BP 149/79
[2016-09-16 20:00] VITALS: BP 113/64
[2016-09-16] MEDS: Tamsulosin 0.4mg cap ORAL SCH (21:14)
[2016-09-16] MEDS: Ramelteon 8mg tab (Approved for Delirium use only) ORAL SCH (21:15)
--- NOTE | 2016-09-16 21:18 | Consultation ---
DATE OF CONSULTATION: 09/16/2016 CARDIAC CONSULTATION CONSULTING PHYSICIAN: Young Sorenson M.D. REFERRING PHYSICIAN: Alexey Stanley M.D. REASON FOR REFERRAL: Valvular heart disease. HISTORY OF PRESENT ILLNESS: This is a very unfortunate female with multiple medical problems as delineated below. The patient is a resident of a [facility] facility with chronic pain, continuous complaints, and she is on psychotropic medications. She has chronic pain who has had some change in mentation requiring transfer to the emergency room where she was diagnosed with dehydration and urinary tract infection and hypotension. She received some intravenous antibiotics and IV fluids. An echocardiogram was performed and it showed valvular heart disease, and this consultation was requested. This unfortunate patient is not able to provide any meaningful history at the present time and there is a very little communication at the present time. 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 ALLERGIES: None. SOCIAL HISTORY: She was born in [facility] and migrated to the [facility] in 1960s. She has a college degree education. She resides in a convalescent facility at the present time. REVIEW OF SYSTEMS: Unable to provide. PHYSICAL EXAMINATION: VITAL SIGNS: Today, blood pressure is between 111/53 to 148/85, heart rates in the 80s to 90s, and temperature 98.2. GENERAL: An elderly female that appears to respond minimally to stimulation. NECK: Supple. No jugular venous distention. LUNGS: Appear to be clear to auscultation and percussion. CARDIAC: Regular rate and rhythm. Systolic ejection murmur. No RV lift, heaves, or thrills noted. ABDOMEN: Soft and nontender. Positive bowel sounds. EXTREMITIES: There is no edema. Her oral mucosa appeared to be still dry. LABORATORY AND DIAGNOSTIC DATA: White count is 7.7, hemoglobin 11.6, and platelet count of 337,000. Sodium is 139, potassium 4.0, chloride 97, bicarbonate 26, BUN of 5, creatinine of 0.6, glucose of 86, and calcium is 8.7. Liver function tests are normal. Coags - INR 1.1 and PTT of 37. Urinalysis - 40 to 50 WBCs, few scarce epi. MICROBIOLOGY: E. coli growing as well as Proteus in the urine. ECHOCARDIOGRAM: Echocardiogram has been performed. The report shows ejection fraction of 55%, peak aortic gradient of 71, and mean gradient of 45. Severe mitral regurgitation is reported with pulmonary hypertension in the 50s. ASSESSMENT: 1. Dehydration. 2. Aortic stenosis, severe, asymptomatic. 3. Mitral regurgitation, reportedly severe, asymptomatic. 4. Hypotension, resolved. 5. Cognitive dysfunction. RECOMMENDATION: Dr. Stanley, this patient was seen in cardiac consultation. The patient at the present time does not show any signs or symptoms of congestive heart failure. There is no indication nor is she a candidate for any valvular treatment at this time. I will follow the patient along with you. Young Sorenson M.D. DR: NOAH JOB#: [id number] CC:
[2016-09-17] VITALS: BP 143/63
--- NOTE | 2016-09-17 00:26 | Geriatric Progress Note ---
Assessment/Plan Problems: (1) Blindness (2) Vascular dementia (3) Volume depletion (4) Mitral regurgitation and aortic stenosis (5) Depression (6) Chronic pain syndrome (7) Anxiety with somatization (8) UTI (urinary tract infection) (9) Altered mental status Assessment/Plan Clinically improving. Continue Zosyn to complete 7-10d course. S.T. to advance diet as tolerated. Begin P.T. to mobilize as tolerated. Cardiology to evaluate re valvular disease. If patient maintains adequate intake, consider LLOC. Decrease IVF rate slightly. Subjective Interval Events Documentation is approximately seven hours delayed due to computer downtime at the time of the clinical visit. Patient calm, mildly dysphoric. Responds "I'm all right". Will not fully endorse no pain or discomfort, keeps answering "I'm all right". Staff reports patient with marginal intake, no agitation, no overt distress. Discussed swallow evaluation with S.T., diet texture downgrade, feeding techniques reviewed. Laboratory results without evidence of new issues. Subjective Limited scope of responses. Geriatric Geriatric Last 24 Hour Vital Signs Date Time Temp Pulse Resp B/P Pulse Ox O2 Delivery O2 Flow Rate FiO2 09/16/16 20:00 97.7 83 20 113/64 93 Room Air 83 09/16/16 16:35 97.4 97 18 149/79 94 Room Air 09/16/16 12:34 97.2 83 18 143/65 94 Room Air 09/16/16 09:03 122/65 09/16/16 08:21 98.2 81 18 122/65 91 Room Air 09/16/16 04:00 98.9 94 18 120/69 93 Room Air Intake and Output 09/16/16 09/17/16 18:59 06:59 Intake Total 407.5 ml 305.0 ml Balance 407.5 ml 305.0 ml Intake Oral 180 ml IV Total 227.5 ml 305.0 ml # Voids 2 Current Medications Medications (Trade) Dose Ordered Sig/Patricia Route PRN Reason Start Time Stop Time Status Last Admin Dose Admin Alendronate Sodium (Fosamax) 70 mg QWEEK ORAL 09/15/16 09:00 10/15/16 08:59 09/15/16 08:25 Aripiprazole (Abilify) 2 mg DAILY ORAL 09/12/16 09:00 5/7/17 08:59 09/16/16 09:02 Benazepril HCl (Lotensin) 20 mg DAILY ORAL 09/12/16 09:00 10/12/16 08:59 09/16/16 09:03 Dextromethorphan/ Quinidine 1 cap 1 cap Q12HR ORAL 09/11/16 21:00 10/11/16 20:59 09/16/16 21:14 Dextrose/Sodium Chloride 1,000 ml @ 50 mls/hr Q20H IV 09/15/16 18:00 10/15/16 17:59 09/16/16 14:28 Duloxetine HCl (Cymbalta) 30 mg DAILY ORAL 09/12/16 09:00 10/12/16 08:59 09/16/16 09:02 Ketotifen Fumarate (Zatidor) 1 drop TWICE A DAY BOTH EYES 09/11/16 18:00 10/11/16 17:59 09/16/16 09:02 Latanoprost (Xalatan) 1 drop BEDTIME BOTH EYES 09/11/16 21:00 10/11/16 20:59 09/16/16 21:14 Levothyroxine Sodium (Synthroid) 88 mcg DAILY@0630 ORAL 09/12/16 06:30 10/12/16 06:29 09/16/16 06:14 Piperacillin Sod/ Tazobactam Sod/ Sodium Chloride (Zosyn/Sodium Chloride) 110 ml @ 27.5 mls/hr Q8HR IVPB 09/16/16 15:00 09/20/16 14:59 09/16/16 21:18 Ramelteon (Rozerem) 8 mg QHS ORAL 09/11/16 21:00 10/11/16 20:59 09/16/16 21:15 Risperidone (RisperDAL) 0.5 mg HSPRN PRN ORAL Agitation 09/11/16 16:15 10/11/16 16:14 09/13/16 21:14 Tamsulosin HCl (Flomax) 0.4 mg BEDTIME ORAL 09/11/16 21:00 10/11/16 20:59 09/16/16 21:14 Height (Feet): 5 Height (Inches): 2.00 Weight (Pounds): 98 General Appearance: no apparent distress, alert, other - mildly dysphoric. Head: normocephalic Eyes: bilateral anicteric ENT: normal voice Neck: full range of motion, no mass Respiratory: lungs clear Cardiovascular: regular rate, rhythm Gastrointestinal: normal bowel sounds, non tender, soft, no mass, no organomegaly, non-distended Edema: no edema noted Generalized Neurologic: no new focality KERRI GUILLEN Sep 17, 2016 00:26
[2016-09-17 04:00] VITALS: BP 146/89
[2016-09-17] MEDS: Piperacillin/Tazobactam 3.375 GM in NS 110 ML IVPB SCH ×2 (05:37→14:39)
[2016-09-17] MEDS: Nuedexta Capsule 20/10mg ORAL SCH ×2 (08:22→20:50)
[2016-09-17] MEDS: ARIPiprazole 2mg tab ORAL SCH (08:22)
[2016-09-17] MEDS: DULoxetine 30mg cap ORAL SCH (08:22)
[2016-09-17] MEDS: Ketotifen Fumarate 0.035% 5ml BOTH EYES SCH ×2 (08:23→17:19)
[2016-09-17 08:26] VITALS: BP 136/90
[2016-09-17] MEDS: D5NS 1,000 ML IV SCH ×2 (10:00→17:20)
[2016-09-17 12:24] VITALS: BP 163/87
--- NOTE | 2016-09-17 15:38 | Diagnostic Imaging Report ---
Indications: DYSPHAGIA Technique: Patient ingested multiple substances under the supervision of speech pathology. Video fluoroscopic recording performed. Total fluoroscopy time due to seconds. Total dose area product 0.36976 mGycm2 Comparison: none Findings: Early pooling of thin liquid barium in the vallecula. Passive penetration of thin liquid barium was noted prior to swallowing on multiple instances. Penetration of nectar thick liquid barium, equivocal trace penetration of honey liquid barium and barium. With swallowing. Impression: Positive for penetration of multiple substances, as described Please see speech pathology report for more detailed analysis
[2016-09-17] MEDS ORDERED: NS 275ml ONE (15:44)
--- NOTE | 2016-09-17 16:35 | Geriatric Progress Note ---
Assessment/Plan Problems: (1) Blindness (2) Vascular dementia (3) Volume depletion (4) Mitral regurgitation and aortic stenosis (5) Depression (6) Chronic pain syndrome (7) Anxiety with somatization (8) UTI (urinary tract infection) (9) Altered mental status Assessment/Plan Urinary tract infection apparently responding well. Will d/c Zosyn and attempt po nitrofurantoin and Flagyl. Given poor intake and lack of agitation will d/c Rozerem and monitor re encephalopathy. Appears to have DJD, ST arthritis sxs in neck, shoulders. Will try analgesic balm in daytime, Lidoderm patch at night as needed. Intake still marginal, recheck labs. If patient can tolerate po antibiotics, consider d/c to [facility]. Discussed with: patient, hospital staff Subjective Interval Events Patient lying in bed, c/o neck discomfort, pointing to L neck and suprascapular area. Also c/o headache. These sxs are recurrent. Oral intake is marginal. No agitation described. Noted at times elevated heart rate and bp. Given significant valvular disease, prefer to err on side of hypertension to avoid decreased cardiac output. Subjective Very limited responses. Geriatric Geriatric Last 24 Hour Vital Signs Date Time Temp Pulse Resp B/P Pulse Ox O2 Delivery O2 Flow Rate FiO2 09/17/16 12:24 97.9 103 22 163/87 92 Room Air 103 09/17/16 08:26 98.2 93 18 136/90 95 Room Air 93 09/17/16 08:22 146/89 09/17/16 04:00 97.3 115 20 146/89 90 Room Air 09/17/16 00:00 96.8 84 19 143/63 98 Room Air 09/16/16 20:00 97.7 83 20 113/64 93 Room Air 83 09/16/16 16:35 97.4 97 18 149/79 94 Room Air Intake and Output 09/16/16 09/17/16 19:00 07:00 Intake Total 380 ml 737.5 ml Balance 380 ml 737.5 ml Intake Oral 180 ml IV Total 200 ml 737.5 ml # Voids 2 3 Current Medications Medications (Trade) Dose Ordered Sig/Patricia Route PRN Reason Start Time Stop Time Status Last Admin Dose Admin Alendronate Sodium (Fosamax) 70 mg Mo@0600 ORAL 09/22/16 06:00 10/22/16 05:59 Aripiprazole (Abilify) 2 mg DAILY ORAL 09/12/16 09:00 10/12/16 08:59 09/17/16 08:22 Benazepril HCl (Lotensin) 20 mg DAILY ORAL 09/12/16 09:00 10/12/16 08:59 09/17/16 08:22 Dextromethorphan/ Quinidine 1 cap 1 cap Q12HR ORAL 09/11/16 21:00 10/11/16 20:59 09/17/16 08:22 Dextrose/Sodium Chloride 1,000 ml @ 50 mls/hr Q20H IV 09/15/16 18:00 10/15/16 17:59 09/16/16 14:28 Duloxetine HCl (Cymbalta) 30 mg DAILY ORAL 09/12/16 09:00 10/12/16 08:59 09/17/16 08:22 Ketotifen Fumarate (Zatidor) 1 drop TWICE A DAY BOTH EYES 09/11/16 18:00 10/11/16 17:59 09/17/16 08:23 Latanoprost (Xalatan) 1 drop BEDTIME BOTH EYES 09/11/16 21:00 10/11/16 20:59 09/16/16 21:14 Levothyroxine Sodium (Synthroid) 88 mcg DAILY@0630 ORAL 09/12/16 06:30 10/12/16 06:29 09/17/16 06:03 Piperacillin Sod/ Tazobactam Sod/ Sodium Chloride (Zosyn/Sodium Chloride) 110 ml @ 27.5 mls/hr Q8HR IVPB 09/16/16 15:00 09/20/16 14:59 09/17/16 14:39 Ramelteon (Rozerem) 8 mg QHS ORAL 09/11/16 21:00 10/11/16 20:59 09/16/16 21:15 Risperidone (RisperDAL) 0.5 mg HSPRN PRN ORAL Agitation 09/11/16 16:15 10/11/16 16:14 09/13/16 21:14 Tamsulosin HCl (Flomax) 0.4 mg BEDTIME ORAL 09/11/16 21:00 10/11/16 20:59 09/16/16 21:14 Height (Feet): 5 Height (Inches): 2.00 Weight (Pounds): 98 General Appearance: alert, other - blind, keeping eyes closed. Appears mildly dysphoric. Head: normocephalic, atraumatic Eyes: bilateral anicteric ENT: dry mucus membranes, other - soft voice Neck: full range of motion - increased tone, decreased functional ROM in neck, without pain on palpation or attempted manipulation. Respiratory: lungs clear Cardiovascular: regular rate, rhythm Gastrointestinal: normal bowel sounds, non tender, soft, no mass, no organomegaly, non-distended Musculoskeletal: no calf tenderness Edema: no edema noted Generalized Neurologic: no new focality KERRI GUILLEN Sep 17, 2016 16:35
[2016-09-17 16:40] VITALS: BP 132/73
[2016-09-17] MEDS ORDERED: Analgesic Balm 15gm TOPIC PRN (17:00)
[2016-09-17] MEDS: Nitrofurantoin 50mg cap ORAL SCH (18:29)
[2016-09-17 20:00] VITALS: BP 157/95
--- NOTE | 2016-09-17 20:35 | Cardiology Progress Note ---
Assessment/Plan Assessment/Plan MR monaetidelia UTI no indication nor candidacy for any treatment for valvular disease at this time excpet possibley with meds once needed abx treatm,etn Subjective ROS Limited/Unobtainable: Yes Objective Last 24 Hour Vital Signs Date Time Temp Pulse Resp B/P Pulse Ox O2 Delivery O2 Flow Rate FiO2 09/17/16 16:40 97.7 86 20 132/73 93 Room Air 86 09/17/16 12:24 97.9 103 22 163/87 92 Room Air 103 09/17/16 08:26 98.2 93 18 136/90 95 Room Air 93 09/17/16 08:22 146/89 09/17/16 04:00 97.3 115 20 146/89 90 Room Air 09/17/16 00:00 96.8 84 19 143/63 98 Room Air General Appearance: other - looks comfortable Intake and Output 09/16/16 09/17/16 19:00 07:00 Intake Total 380 ml 737.5 ml Balance 380 ml 737.5 ml Intake Oral 180 ml IV Total 200 ml 737.5 ml # Voids 2 3 FRANCIS VELEZ Sep 17, 2016 20:35
[2016-09-17] MEDS: Tamsulosin 0.4mg cap ORAL SCH (20:50)
[2016-09-18] VITALS (7 sets, daily range): BP systolic 124–168; BP diastolic 73–102
[2016-09-18] MEDS: Nitrofurantoin 50mg cap ORAL SCH ×4 (00:30→17:20)
[2016-09-18 07:18] LABS: ALANINE AMINOTRANSFERASE 7 U/L (3-33); ALBUMIN/GLOBULIN RATIO 0.8 (1.0-2.7); ANION GAP 12 (5-15); ASPARTATE AMINO TRANSFERASE 13 U/L (5-40); CALCIUM 8.3 mg/dL (8.6-10.2); CARBON DIOXIDE 29 mEQ/L (20-30); CHLORIDE 99 mEQ/L (98-107); CREATININE 0.6 mg/dL (0.5-0.9); HEMOLYSIS 0; MAGNESIUM 1.6 mg/dL (1.7-2.5); POTASSIUM 3.4 mEQ/L (3.4-4.9); SODIUM 140 mEQ/L (135-145)
[2016-09-18 07:28] LABS: BASOPHILS % (AUTO) 0.4 % (0.0-2.0); LYMPHOCYTES % (AUTO) 13.8 % (20.0-45.0); MEAN CORPUSCULAR HEMOGLOBIN 25.9 PG (27.0-31.0); MEAN CORPUSCULAR HGB CONC 31.6 G/DL (32.0-36.0); MEAN CORPUSCULAR VOLUME 82 FL (80-99); MONOCYTES % (AUTO) 9.6 % (1.0-10.0); NEUTROPHILS % (AUTO) 75.3 % (45.0-75.0); PLATELET COUNT 426 K/UL (150-450); RED BLOOD COUNT 3.98 M/UL (4.20-5.40); RED CELL DISTRIBUTION WIDTH 12.4 % (11.6-14.8); WHITE BLOOD COUNT 8.4 K/UL (4.8-10.8)
[2016-09-18] MEDS: Ketotifen Fumarate 0.035% 5ml BOTH EYES SCH ×2 (09:04→17:20)
[2016-09-18] MEDS: Nuedexta Capsule 20/10mg ORAL SCH ×2 (09:05→21:55)
[2016-09-18] MEDS: ARIPiprazole 2mg tab ORAL SCH (09:05)
[2016-09-18] MEDS: DULoxetine 30mg cap ORAL SCH (09:05)
[2016-09-18] MEDS ORDERED: D5NS 1000ml IV ONE (09:40)
--- NOTE | 2016-09-18 13:54 | Geriatric Progress Note ---
Assessment/Plan Problems: (1) Blindness (2) Vascular dementia (3) Volume depletion (4) Mitral regurgitation and aortic stenosis (5) Depression (6) Chronic pain syndrome (7) Anxiety with somatization (8) UTI (urinary tract infection) (9) Altered mental status Assessment/Plan Tachycardia, apparently associated with ill-defined c/o pain. Etiology unclear. ? aspiration, ? dysrhythmia, ? recurrent sepsis with d/c Zosyn. ? new mechanical cause of pain. Will give bolus of IVF, check blood C&S, EKG, CXR. Tylenol for pain now, consider additional meds if persistent pain. Consider restarting Zosyn. Recheck labs. Discussed with: hospital staff Subjective Interval Events Patient noted to have increased hr, systolic bp 160. C/o back pain, but does not localize well, reports later "kidney pain" in L CVA area, but no convincing tenderness or increased tone. O2 sat OK. Labs from earlier with nl wbc, chemistries, borderline low Mg. Ate small amount at lunch, no reported choking. Subjective Only c/o is pain. Geriatric Geriatric Last 24 Hour Vital Signs Date Time Temp Pulse Resp B/P Pulse Ox O2 Delivery O2 Flow Rate FiO2 09/18/16 12:00 97.5 137 18 168/102 96 Room Air 09/18/16 09:06 162/85 09/18/16 08:00 97.2 112 24 162/85 94 Room Air 09/18/16 08:00 97.2 112 24 162/85 94 Room Air 09/18/16 04:00 97.9 99 22 157/88 Room Air 09/18/16 00:00 97.5 91 22 157/87 96 Room Air 09/17/16 20:00 97.9 111 22 157/95 91 Room Air 09/17/16 16:40 97.7 86 20 132/73 93 Room Air 86 Intake and Output 09/17/16 09/18/16 19:00 07:00 Intake Total 400 ml 760 ml Balance 400 ml 760 ml Intake Oral 360 ml IV Total 400 ml 400 ml # Voids 1 7 Laboratory Tests Test 09/18/16 05:20 White Blood Count 8.4 K/UL (4.8-10.8) Red Blood Count 3.98 M/UL (4.20-5.40) L Hemoglobin 10.3 G/DL (12.0-16.0) L Hematocrit 32.6 % (37.0-47.0) L Mean Corpuscular Volume 82 FL (80-99) Mean Corpuscular Hemoglobin 25.9 PG (27.0-31.0) L Mean Corpuscular Hemoglobin Concent 31.6 G/DL (32.0-36.0) L Red Cell Distribution Width 12.4 % (11.6-14.8) Platelet Count 426 K/UL (150-450) Mean Platelet Volume 6.0 FL (6.5-10.1) L Neutrophils (%) (Auto) 75.3 % (45.0-75.0) H Lymphocytes (%) (Auto) 13.8 % (20.0-45.0) L Monocytes (%) (Auto) 9.6 % (1.0-10.0) Eosinophils (%) (Auto) 1.0 % (0.0-3.0) Basophils (%) (Auto) 0.4 % (0.0-2.0) Sodium Level 140 mEQ/L (135-145) Potassium Level 3.4 mEQ/L (3.4-4.9) Chloride Level 99 mEQ/L (98-107) Carbon Dioxide Level 29 mEQ/L (20-30) Anion Gap 12 (5-15) Blood Urea Nitrogen 4 mg/dL (7-23) L Creatinine 0.6 mg/dL (0.5-0.9) Estimat Glomerular Filtration Rate mL/min (>60) Glucose Level 105 mg/dL (74-106) Calcium Level 8.3 mg/dL (8.6-10.2) L Magnesium Level 1.6 mg/dL (1.7-2.5) L Total Bilirubin 0.3 mg/dL (0.0-1.2) Aspartate Amino Transf (AST/SGOT) 13 U/L (5-40) Alanine Aminotransferase (ALT/SGPT) 7 U/L (3-33) Alkaline Phosphatase 56 U/L (35-104) Total Protein 6.0 g/dL (6.6-8.7) L Albumin 2.8 g/dL (3.5-5.2) L Globulin 3.2 g/dL Albumin/Globulin Ratio 0.8 (1.0-2.7) L Vitamin B12 Level 1078 pg/mL (211-946) H Thyroid Stimulating Hormone (TSH) 4.770 uIU/mL (0.300-4.500) Current Medications Medications (Trade) Dose Ordered Sig/Patricia Route PRN Reason Start Time Stop Time Status Last Admin Dose Admin Alendronate Sodium (Fosamax) 70 mg Mo@0600 ORAL 09/22/16 06:00 10/22/16 05:59 Aripiprazole (Abilify) 2 mg DAILY ORAL 09/12/16 09:00 10/12/16 08:59 09/18/16 09:05 Benazepril HCl (Lotensin) 20 mg DAILY ORAL 09/12/16 09:00 10/12/16 08:59 09/18/16 09:06 Dextromethorphan/ Quinidine 1 cap 1 cap Q12HR ORAL 09/11/16 21:00 10/11/16 20:59 09/18/16 09:05 Dextrose/Sodium Chloride (D5ns) 1,000 ml @ 50 mls/hr Q20H IV 09/15/16 18:00 10/15/16 17:59 09/17/16 17:20 Duloxetine HCl (Cymbalta) 30 mg DAILY ORAL 09/12/16 09:00 10/12/16 08:59 09/18/16 09:05 Ketotifen Fumarate (Zatidor) 1 drop TWICE A DAY BOTH EYES 09/11/16 18:00 10/11/16 17:59 09/18/16 09:04 Latanoprost (Xalatan) 1 drop BEDTIME BOTH EYES 09/11/16 21:00 10/11/16 20:59 09/17/16 20:50 Levofloxacin (Levaquin) 250 mg Q24H ORAL 09/17/16 17:00 09/24/16 16:59 09/17/16 17:18 Levothyroxine Sodium (Synthroid) 88 mcg DAILY@0630 ORAL 09/12/16 06:30 10/12/16 06:29 09/18/16 06:31 Lidocaine (Lidoderm 5% PATCH) 1 patch Q24H TDERMAL 09/17/16 18:00 10/17/16 17:59 09/17/16 17:18 Menthol/Methyl Salicylate (Bengay) 1 applic Q6H PRN TOPIC For Pain 09/17/16 17:00 10/17/16 16:59 Nitrofurantoin (Nitrofurantoin) 50 mg Q6HR ORAL 09/17/16 18:00 09/24/16 17:59 09/18/16 12:07 Risperidone (RisperDAL) 0.5 mg HSPRN PRN ORAL Agitation 09/11/16 16:15 10/11/16 16:14 09/13/16 21:14 Tamsulosin HCl (Flomax) 0.4 mg BEDTIME ORAL 09/11/16 21:00 10/11/16 20:59 09/17/16 20:50 Height (Feet): 5 Height (Inches): 2.00 Weight (Pounds): 98 General Appearance: alert, moderate distress Head: normocephalic ENT: normal voice Neck: no mass Respiratory: rales - at bases, rhonchi - at bases Cardiovascular: regular rate, rhythm Gastrointestinal: normal bowel sounds, non tender, soft, no mass, no organomegaly, no guarding Musculoskeletal: no calf tenderness Edema: no edema noted Generalized Neurologic: no new focality KERRI GUILLEN Sep 18, 2016 13:54
--- NOTE | 2016-09-18 17:19 | Diagnostic Imaging Report ---
Indication: DYSPHAGIA Technique: One view of the chest Comparison: 09/11/2016 Findings: There is a small amount of pleural fluid on the left, not evident previously. Heart size is normal. Aorta is tortuous ectatic and calcified. Old healed right clavicular fracture deformity is again noted Impression: Small left pleural effusion, new since 09/11/2016 Other findings as noted
[2016-09-18] MEDS: Tamsulosin 0.4mg cap ORAL SCH (21:55)
[2016-09-19] VITALS: BP 124/61
[2016-09-19] MEDS: Nitrofurantoin 50mg cap ORAL SCH ×4 (00:21→18:08)
[2016-09-19 04:51] VITALS: BP 166/94
[2016-09-19 07:06] LABS: BASOPHILS % (AUTO) 0.3 % (0.0-2.0); EOSINOPHILS % (AUTO) 0.6 % (0.0-3.0); LYMPHOCYTES % (AUTO) 10.4 % (20.0-45.0); MEAN CORPUSCULAR HEMOGLOBIN 25.9 PG (27.0-31.0); MEAN CORPUSCULAR HGB CONC 31.8 G/DL (32.0-36.0); MEAN CORPUSCULAR VOLUME 81 FL (80-99); MEAN PLATELET VOLUME 5.7 FL (6.5-10.1); MONOCYTES % (AUTO) 9.2 % (1.0-10.0); NEUTROPHILS % (AUTO) 79.5 % (45.0-75.0); PLATELET COUNT 409 K/UL (150-450); RED BLOOD COUNT 4.25 M/UL (4.20-5.40); RED CELL DISTRIBUTION WIDTH 12.6 % (11.6-14.8); WHITE BLOOD COUNT 11.4 K/UL (4.8-10.8)
[2016-09-19 08:00] VITALS: BP 153/95
[2016-09-19 08:42] LABS: ALANINE AMINOTRANSFERASE 7 U/L (3-33); ALBUMIN/GLOBULIN RATIO 0.6 (1.0-2.7); ANION GAP 11 (5-15); ASPARTATE AMINO TRANSFERASE 14 U/L (5-40); CALCIUM 8.3 mg/dL (8.6-10.2); CARBON DIOXIDE 28 mEQ/L (20-30); CHLORIDE 100 mEQ/L (98-107); CREATININE 0.6 mg/dL (0.5-0.9); HEMOLYSIS 15; POTASSIUM 3.7 mEQ/L (3.4-4.9); SODIUM 139 mEQ/L (135-145); TOTAL PROTEIN 6.4 g/dL (6.6-8.7)
[2016-09-19] MEDS: DULoxetine 30mg cap ORAL SCH (09:21)
[2016-09-19] MEDS: Nuedexta Capsule 20/10mg ORAL SCH ×2 (09:21→22:03)
[2016-09-19] MEDS: Ketotifen Fumarate 0.035% 5ml BOTH EYES SCH ×2 (09:21→18:08)
[2016-09-19] MEDS: ARIPiprazole 2mg tab ORAL SCH (09:21)
[2016-09-19] MEDS ORDERED: Tubing IV Secondary IV ONE (10:02)
[2016-09-19] MEDS ORDERED: NS 550ML IV ONE (10:02)
[2016-09-19 12:00] VITALS: BP 136/55
--- NOTE | 2016-09-19 15:18 | Geriatric Progress Note ---
Assessment/Plan Problems: (1) Blindness (2) Vascular dementia (3) Volume depletion (4) Mitral regurgitation and aortic stenosis (5) Depression (6) Chronic pain syndrome (7) Anxiety with somatization (8) UTI (urinary tract infection) (9) Altered mental status Assessment/Plan Episode yesterday with mild increase in temperature, c/o pain, tachycardia - ? related to conversion from IV antibiotics to p.o., ? aspiration event, ? element of fluid overload. Neck sxs, doubt meningismus, but ? increased tone due to Abilify. Will add BNP to this am labs. One dose of Lasix 20 mg IV. Trial of conversion or Abilify to Nuplazid, evaluate change in tone and behavior. Hold on resuming IV antibiotics for now. Recheck labs in am. Discussed with: hospital staff Subjective Interval Events Patient weaker, poor intake. On questioning reports some neck pain. Yesterday with episode of mild increase in temp to 99.6, tachycardia to 137. Given Tylenol, fluid bolus with some improvement to afebrile hr ~110. Labs with mild leukocytosis to 11.4. Patient calm, not crying out. Review of CXR now suggestts possible component of fluid overload vs. aspiration event. Subjective Only c/o is neck pain. Geriatric Geriatric Last 24 Hour Vital Signs Date Time Temp Pulse Resp B/P Pulse Ox O2 Delivery O2 Flow Rate FiO2 09/19/16 12:00 97.5 112 18 136/55 97 Room Air 09/19/16 09:21 153/95 09/19/16 08:00 96.9 114 21 153/95 95 Room Air 09/19/16 04:51 97.5 105 21 166/94 96 Room Air 09/19/16 00:00 97.9 95 21 124/61 96 Room Air 09/18/16 20:00 99.5 101 22 124/73 91 Room Air 09/18/16 16:00 97.5 113 19 160/85 90 Room Air Intake and Output 09/18/16 09/19/16 19:00 07:00 Intake Total 955 ml 820 ml Balance 955 ml 820 ml Intake Oral 55 ml 180 ml IV Total 900 ml 640 ml # Voids 3 3 Laboratory Tests Test 09/19/16 05:20 09/19/16 08:30 White Blood Count 11.4 K/UL (4.8-10.8) H Red Blood Count 4.25 M/UL (4.20-5.40) Hemoglobin 11.0 G/DL (12.0-16.0) L Hematocrit 34.5 % (37.0-47.0) L Mean Corpuscular Volume 81 FL (80-99) Mean Corpuscular Hemoglobin 25.9 PG (27.0-31.0) L Mean Corpuscular Hemoglobin Concent 31.8 G/DL (32.0-36.0) L Red Cell Distribution Width 12.6 % (11.6-14.8) Platelet Count 409 K/UL (150-450) Mean Platelet Volume 5.7 FL (6.5-10.1) L Neutrophils (%) (Auto) 79.5 % (45.0-75.0) H Lymphocytes (%) (Auto) 10.4 % (20.0-45.0) L Monocytes (%) (Auto) 9.2 % (1.0-10.0) Eosinophils (%) (Auto) 0.6 % (0.0-3.0) Basophils (%) (Auto) 0.3 % (0.0-2.0) Sodium Level 139 mEQ/L (135-145) Potassium Level 3.7 mEQ/L (3.4-4.9) Chloride Level 100 mEQ/L (98-107) Carbon Dioxide Level 28 mEQ/L (20-30) Anion Gap 11 (5-15) Blood Urea Nitrogen 4 mg/dL (7-23) L Creatinine 0.6 mg/dL (0.5-0.9) Estimat Glomerular Filtration Rate mL/min (>60) Glucose Level 112 mg/dL (74-106) H Calcium Level 8.3 mg/dL (8.6-10.2) L Total Bilirubin 0.3 mg/dL (0.0-1.2) Aspartate Amino Transf (AST/SGOT) 14 U/L (5-40) Alanine Aminotransferase (ALT/SGPT) 7 U/L (3-33) Alkaline Phosphatase 67 U/L (35-104) Total Protein 6.4 g/dL (6.6-8.7) L Albumin 2.6 g/dL (3.5-5.2) L Globulin 3.8 g/dL Albumin/Globulin Ratio 0.6 (1.0-2.7) L Pro-B-Type Natriuretic Peptide Pending Current Medications Medications (Trade) Dose Ordered Sig/Patricia Route PRN Reason Start Time Stop Time Status Last Admin Dose Admin Acetaminophen 650 mg 650 mg Q6H PRN ORAL Mild Pain/Temp > 100.5 09/18/16 13:45 10/18/16 13:44 09/18/16 13:55 Alendronate Sodium (Fosamax) 70 mg Mo@0600 ORAL 09/22/16 06:00 10/22/16 05:59 Aripiprazole (Abilify) 2 mg DAILY ORAL 09/12/16 09:00 10/12/16 08:59 09/19/16 09:21 Benazepril HCl (Lotensin) 20 mg DAILY ORAL 09/12/16 09:00 10/12/16 08:59 09/19/16 09:21 Dextromethorphan/ Quinidine (Nuedexta Capsule) 1 cap Q12HR ORAL 09/11/16 21:00 10/11/16 20:59 09/19/16 09:21 Dextrose/ Electrolytes (D5NS W/KCl 20meq 1000ml) 1,000 ml @ 80 mls/hr [id number] IV 09/18/16 21:00 10/18/16 20:59 09/19/16 11:00 Duloxetine HCl (Cymbalta) 30 mg DAILY ORAL 09/12/16 09:00 10/12/16 08:59 09/19/16 09:21 Ketotifen Fumarate (Zatidor) 1 drop TWICE A DAY BOTH EYES 09/11/16 18:00 10/11/16 17:59 09/19/16 09:21 Latanoprost (Xalatan) 1 drop BEDTIME BOTH EYES 09/11/16 21:00 10/11/16 20:59 09/18/16 21:57 Levofloxacin (Levaquin) 250 mg Q24H ORAL 09/17/16 17:00 09/24/16 16:59 09/18/16 16:08 Levothyroxine Sodium (Synthroid) 88 mcg DAILY@0630 ORAL 09/12/16 06:30 10/12/16 06:29 09/19/16 06:32 Lidocaine (Lidoderm 5% PATCH) 1 patch Q24H TDERMAL 09/17/16 18:00 10/17/16 17:59 09/17/16 17:18 Menthol/Methyl Salicylate (Bengay) 1 applic Q6H PRN TOPIC For Pain 09/17/16 17:00 10/17/16 16:59 Nitrofurantoin (Nitrofurantoin) 50 mg Q6HR ORAL 09/17/16 18:00 09/24/16 17:59 09/19/16 12:17 Risperidone (RisperDAL) 0.5 mg HSPRN PRN ORAL Agitation 09/11/16 16:15 10/11/16 16:14 09/13/16 21:14 Tamsulosin HCl (Flomax) 0.4 mg BEDTIME ORAL 09/11/16 21:00 10/11/16 20:59 09/18/16 21:55 Height (Feet): 5 Height (Inches): 2.00 Weight (Pounds): 98 General Appearance: lethargic - easliy arousable. Eyes: bilateral anicteric ENT: normal voice - perhaps mildly hypophonic. Neck: full range of motion - tone increased. Respiratory: rales - at bases Cardiovascular: regular rate, rhythm, JVD - external to angle of mandible., systolic murmur - radiation into carotids, ? also into abd aorta. Gastrointestinal: normal bowel sounds, non tender, soft, no mass, no organomegaly Musculoskeletal: no calf tenderness Neurologic: no new focality KERRI GUILLEN Sep 19, 2016 15:18
[2016-09-19 16:00] VITALS: BP 127/71
[2016-09-19] MEDS: NUPLAZID 17 MG ORAL SCH (18:08)
[2016-09-19 20:00] VITALS: BP 140/80
[2016-09-19] MEDS: Tamsulosin 0.4mg cap ORAL SCH (22:03)
[2016-09-20] VITALS: BP 158/86
[2016-09-20] MEDS: Nitrofurantoin 50mg cap ORAL SCH ×4 (00:05→17:10)
[2016-09-20 04:28] VITALS: BP 155/82
[2016-09-20 07:13] LABS: ALANINE AMINOTRANSFERASE 8 U/L (3-33); ALBUMIN/GLOBULIN RATIO 0.7 (1.0-2.7); ANION GAP 14 (5-15); ASPARTATE AMINO TRANSFERASE 14 U/L (5-40); CALCIUM 8.3 mg/dL (8.6-10.2); CARBON DIOXIDE 29 mEQ/L (20-30); CHLORIDE 96 mEQ/L (98-107); CREATININE 0.6 mg/dL (0.5-0.9); HEMOLYSIS 2; MAGNESIUM 1.6 mg/dL (1.7-2.5); POTASSIUM 3.6 mEQ/L (3.4-4.9); SODIUM 139 mEQ/L (135-145); TOTAL PROTEIN 6.3 g/dL (6.6-8.7)
[2016-09-20 07:23] LABS: BASOPHILS % (AUTO) 0.4 % (0.0-2.0); LYMPHOCYTES % (AUTO) 12.2 % (20.0-45.0); MEAN CORPUSCULAR HEMOGLOBIN 25.9 PG (27.0-31.0); MEAN CORPUSCULAR HGB CONC 31.8 G/DL (32.0-36.0); MEAN CORPUSCULAR VOLUME 81 FL (80-99); MEAN PLATELET VOLUME 5.7 FL (6.5-10.1); MONOCYTES % (AUTO) 11.2 % (1.0-10.0); NEUTROPHILS % (AUTO) 75.4 % (45.0-75.0); PLATELET COUNT 413 K/UL (150-450); RED BLOOD COUNT 4.07 M/UL (4.20-5.40); RED CELL DISTRIBUTION WIDTH 12.7 % (11.6-14.8); WHITE BLOOD COUNT 9.5 K/UL (4.8-10.8)
[2016-09-20 08:00] VITALS: BP 163/80
[2016-09-20] MEDS: DULoxetine 30mg cap ORAL SCH (08:49)
[2016-09-20] MEDS: NUPLAZID 17 MG ORAL SCH (08:50)
[2016-09-20] MEDS: Ketotifen Fumarate 0.035% 5ml BOTH EYES SCH ×2 (08:50→17:10)
[2016-09-20] MEDS: Nuedexta Capsule 20/10mg ORAL SCH ×2 (08:50→20:09)
[2016-09-20 12:00] VITALS: BP 140/88
[2016-09-20 16:00] VITALS: BP 145/88
--- NOTE | 2016-09-20 17:11 | Cardiology Progress Note ---
Assessment/Plan Problem List: (1) Mitral regurgitation and aortic stenosis (2) Altered mental status (3) Vascular dementia Status: stable, unchanged Status Narrative Pt w/ severe , mod MR - Mild to mod systolic hypertension Does not appear clinically in chf Assessment/Plan Continue benazepril for hypertension - can titrate. Pt not a good candidate for intervention for valve disease due to comorbidities Subjective ROS Limited/Unobtainable: No Subjective Cardiology for Dr. Sorenson Pt without c/o dyspnea. Events noted Objective Last 24 Hour Vital Signs Date Time Temp Pulse Resp B/P Pulse Ox O2 Delivery O2 Flow Rate FiO2 09/20/16 12:00 97.3 106 18 140/88 93 Room Air 09/20/16 08:50 163/80 09/20/16 08:00 96.1 108 17 163/80 92 Room Air 09/20/16 04:28 97.9 97 19 155/82 94 Room Air 09/20/16 00:00 98.1 99 20 158/86 93 Room Air 09/19/16 20:00 97.9 98 19 140/80 91 Room Air General Appearance: WD/WN, no apparent distress EENT: PERRL/EOMI Neck: supple, no JVD, other - bilat transmitted m Rhythm: NSR Cardiovascular: normal rate, regular rhythm, systolic murmur - iii/vi late pk SERENA R second ics radiating across precordium and to bilat carotids Respiratory/Chest: lungs clear Abdomen: non tender, tender - mild diffuse tenderness w/o guarding, rebound Extremities: no swelling Intake and Output 09/19/16 09/20/16 19:00 07:00 Intake Total 980 ml 220 ml Balance 980 ml 220 ml Intake Oral 360 ml 0 ml IV Total 620 ml 220 ml # Voids 2 2 Laboratory Tests Test 09/20/16 05:10 White Blood Count 9.5 K/UL (4.8-10.8) Red Blood Count 4.07 M/UL (4.20-5.40) L Hemoglobin 10.5 G/DL (12.0-16.0) L Hematocrit 33.1 % (37.0-47.0) L Mean Corpuscular Volume 81 FL (80-99) Mean Corpuscular Hemoglobin 25.9 PG (27.0-31.0) L Mean Corpuscular Hemoglobin Concent 31.8 G/DL (32.0-36.0) L Red Cell Distribution Width 12.7 % (11.6-14.8) Platelet Count 413 K/UL (150-450) Mean Platelet Volume 5.7 FL (6.5-10.1) L Neutrophils (%) (Auto) 75.4 % (45.0-75.0) H Lymphocytes (%) (Auto) 12.2 % (20.0-45.0) L Monocytes (%) (Auto) 11.2 % (1.0-10.0) H Eosinophils (%) (Auto) 1.0 % (0.0-3.0) Basophils (%) (Auto) 0.4 % (0.0-2.0) Sodium Level 139 mEQ/L (135-145) Potassium Level 3.6 mEQ/L (3.4-4.9) Chloride Level 96 mEQ/L (98-107) L Carbon Dioxide Level 29 mEQ/L (20-30) Anion Gap 14 (5-15) Blood Urea Nitrogen 4 mg/dL (7-23) L Creatinine 0.6 mg/dL (0.5-0.9) Estimat Glomerular Filtration Rate mL/min (>60) Glucose Level 93 mg/dL (74-106) Calcium Level 8.3 mg/dL (8.6-10.2) L Magnesium Level 1.6 mg/dL (1.7-2.5) L Total Bilirubin 0.3 mg/dL (0.0-1.2) Aspartate Amino Transf (AST/SGOT) 14 U/L (5-40) Alanine Aminotransferase (ALT/SGPT) 8 U/L (3-33) Alkaline Phosphatase 59 U/L (35-104) Total Protein 6.3 g/dL (6.6-8.7) L Albumin 2.7 g/dL (3.5-5.2) L Globulin 3.6 g/dL Albumin/Globulin Ratio 0.7 (1.0-2.7) L Microbiology Date/Time Source Procedure Growth Status 09/18/16 14:30 Blood Blood Culture - Preliminary NO GROWTH AFTER 24 HOURS Resulted 09/18/16 14:15 Blood Blood Culture - Preliminary NO GROWTH AFTER 24 HOURS Resulted OMEGA HARVEY Sep 20, 2016 17:11
--- NOTE | 2016-09-20 18:08 | Geriatric Progress Note ---
Assessment/Plan Problems: (1) Blindness (2) Vascular dementia (3) Volume depletion (4) Mitral regurgitation and aortic stenosis (5) Depression (6) Chronic pain syndrome (7) Anxiety with somatization (8) UTI (urinary tract infection) (9) Altered mental status (10) Torticollis, acquired Assessment/Plan Slightly improved. ? minimal aspiration event +/- ? mild fluid overload +/- ? EPS from [facility]. Now appears euvolemic in setting of severe /MR. On Nuplazid trial. UTI on p.o. tx. Discussed anorexia in detail with dtr. After discussion of risks/benefits/ alternatives, concurs with trial of Megace for appetite, avoid heparin given patient's aversion to injections per dtr. If patient stabilizes again, hope for d/c soon. Discussed with: family, hospital staff Subjective Interval Events Patient reports feeling better, but c/o some bitterness in mouth. Oral intake quite poor. No further fever, lab values have normalized. Elevated proBNP difficult to interpret, but in any event, heart rate, respiratory rate improved after single dose of Lasix. No other clinical changes per staff. Subjective Limited responses but reports feeling better. Geriatric Geriatric Last 24 Hour Vital Signs Date Time Temp Pulse Resp B/P Pulse Ox O2 Delivery O2 Flow Rate FiO2 09/20/16 16:00 97.3 77 17 145/88 95 Room Air 09/20/16 12:00 97.3 106 18 140/88 93 Room Air 09/20/16 08:50 163/80 09/20/16 08:00 96.1 108 17 163/80 92 Room Air 09/20/16 04:28 97.9 97 19 155/82 94 Room Air 09/20/16 00:00 98.1 99 20 158/86 93 Room Air 09/19/16 20:00 97.9 98 19 140/80 91 Room Air Intake and Output 09/19/16 09/20/16 19:00 07:00 Intake Total 980 ml 220 ml Balance 980 ml 220 ml Intake Oral 360 ml 0 ml IV Total 620 ml 220 ml # Voids 2 2 Laboratory Tests Test 09/20/16 05:10 White Blood Count 9.5 K/UL (4.8-10.8) Red Blood Count 4.07 M/UL (4.20-5.40) L Hemoglobin 10.5 G/DL (12.0-16.0) L Hematocrit 33.1 % (37.0-47.0) L Mean Corpuscular Volume 81 FL (80-99) Mean Corpuscular Hemoglobin 25.9 PG (27.0-31.0) L Mean Corpuscular Hemoglobin Concent 31.8 G/DL (32.0-36.0) L Red Cell Distribution Width 12.7 % (11.6-14.8) Platelet Count 413 K/UL (150-450) Mean Platelet Volume 5.7 FL (6.5-10.1) L Neutrophils (%) (Auto) 75.4 % (45.0-75.0) H Lymphocytes (%) (Auto) 12.2 % (20.0-45.0) L Monocytes (%) (Auto) 11.2 % (1.0-10.0) H Eosinophils (%) (Auto) 1.0 % (0.0-3.0) Basophils (%) (Auto) 0.4 % (0.0-2.0) Sodium Level 139 mEQ/L (135-145) Potassium Level 3.6 mEQ/L (3.4-4.9) Chloride Level 96 mEQ/L (98-107) L Carbon Dioxide Level 29 mEQ/L (20-30) Anion Gap 14 (5-15) Blood Urea Nitrogen 4 mg/dL (7-23) L Creatinine 0.6 mg/dL (0.5-0.9) Estimat Glomerular Filtration Rate mL/min (>60) Glucose Level 93 mg/dL (74-106) Calcium Level 8.3 mg/dL (8.6-10.2) L Magnesium Level 1.6 mg/dL (1.7-2.5) L Total Bilirubin 0.3 mg/dL (0.0-1.2) Aspartate Amino Transf (AST/SGOT) 14 U/L (5-40) Alanine Aminotransferase (ALT/SGPT) 8 U/L (3-33) Alkaline Phosphatase 59 U/L (35-104) Total Protein 6.3 g/dL (6.6-8.7) L Albumin 2.7 g/dL (3.5-5.2) L Globulin 3.6 g/dL Albumin/Globulin Ratio 0.7 (1.0-2.7) L Current Medications Medications (Trade) Dose Ordered Sig/Patricia Route PRN Reason Start Time Stop Time Status Last Admin Dose Admin Acetaminophen 650 mg 650 mg Q6H PRN ORAL Mild Pain/Temp > 100.5 09/18/16 13:45 10/18/16 13:44 09/18/16 13:55 Benazepril HCl (Lotensin) 20 mg DAILY ORAL 09/12/16 09:00 10/12/16 08:59 09/20/16 08:50 Dextromethorphan/ Quinidine (Nuedexta Capsule) 1 cap Q12HR ORAL 09/11/16 21:00 10/11/16 20:59 09/20/16 08:50 Dextrose/ Electrolytes (D5NS W/KCl 20meq 1000ml) 1,000 ml @ 20 mls/hr Q24H IV 09/19/16 16:00 10/19/16 15:59 09/19/16 16:00 Duloxetine HCl (Cymbalta) 30 mg DAILY ORAL 09/12/16 09:00 10/12/16 08:59 09/20/16 08:49 Ketotifen Fumarate (Zatidor) 1 drop TWICE A DAY BOTH EYES 09/11/16 18:00 10/11/16 17:59 09/20/16 17:10 Latanoprost (Xalatan) 1 drop BEDTIME BOTH EYES 09/11/16 21:00 10/11/16 20:59 09/19/16 22:03 Levofloxacin (Levaquin) 250 mg Q24H ORAL 09/17/16 17:00 09/24/16 16:59 09/20/16 17:10 Levothyroxine Sodium (Synthroid) 88 mcg DAILY@0630 ORAL 09/12/16 06:30 10/12/16 06:29 09/20/16 05:44 Lidocaine (Lidoderm 5% PATCH) 1 patch Q24H TDERMAL 09/17/16 18:00 10/17/16 17:59 09/20/16 17:10 Menthol/Methyl Salicylate (Bengay) 1 applic Q6H PRN TOPIC For Pain 09/17/16 17:00 10/17/16 16:59 Nitrofurantoin (Nitrofurantoin) 50 mg Q6HR ORAL 09/17/16 18:00 09/24/16 17:59 09/20/16 17:10 Patient Own Medication (Patient's Own Med) 1 ea DAILY ORAL 09/19/16 18:00 10/19/16 17:59 09/20/16 08:50 Tamsulosin HCl (Flomax) 0.4 mg BEDTIME ORAL 09/11/16 21:00 10/11/16 20:59 09/19/16 22:03 Height (Feet): 5 Height (Inches): 2.00 Weight (Pounds): 98 General Appearance: lethargic - slightly less dysphoric appearing. Head: normocephalic Eyes: bilateral anicteric ENT: normal voice, dry mucus membranes - slightly dry Neck: full range of motion - tone somewhat decreased, with less discomfort on rotation. Respiratory: lungs clear Cardiovascular: regular rate, rhythm, JVD - external jugular to clavicle Gastrointestinal: normal bowel sounds, non tender, soft, no mass, no organomegaly, non-distended Edema: no edema noted Generalized Neurologic: no new focality KERRI GUILLEN Sep 20, 2016 18:08
[2016-09-20 20:00] VITALS: BP 155/91
[2016-09-20] MEDS: Megace 400mg/10ml Susp ORAL SCH (20:08)
[2016-09-20] MEDS: Tamsulosin 0.4mg cap ORAL SCH (20:09)
[2016-09-21] MEDS: Nitrofurantoin 50mg cap ORAL SCH ×5 (00:50→22:01)
[2016-09-21 04:00] VITALS: BP 124/65
[2016-09-21 07:46] VITALS: BP 158/94
[2016-09-21] MEDS: Megace 400mg/10ml Susp ORAL SCH ×2 (08:39→17:31)
[2016-09-21] MEDS: Ketotifen Fumarate 0.035% 5ml BOTH EYES SCH ×2 (08:39→17:31)
[2016-09-21] MEDS: Nuedexta Capsule 20/10mg ORAL SCH ×2 (08:40→22:01)
[2016-09-21] MEDS: DULoxetine 30mg cap ORAL SCH (08:40)
[2016-09-21] MEDS: NUPLAZID 17 MG ORAL SCH (08:40)
[2016-09-21 12:00] VITALS: BP 107/67
[2016-09-21 14:00] VITALS: BP 128/70
--- NOTE | 2016-09-21 15:07 | Geriatric Progress Note ---
Assessment/Plan Problems: (1) Blindness (2) Vascular dementia (3) Volume depletion (4) Mitral regurgitation and aortic stenosis (5) Depression (6) Chronic pain syndrome (7) Anxiety with somatization (8) UTI (urinary tract infection) (9) Altered mental status (10) Torticollis, acquired Assessment/Plan Slightly improved intake on Megace. Otherwise appears stable on present regimen. Will recheck labs, consider d/c tomorrow if clinically remains stable. Discussed with: hospital staff Subjective Interval Events Patient denies c/o!. Apparently ate 50% when dtr fed today. VS fairly stable with borderline tachycardia. No fever. Subjective Limited responses but reports feeling OK. Geriatric Geriatric Last 24 Hour Vital Signs Date Time Temp Pulse Resp B/P Pulse Ox O2 Delivery O2 Flow Rate FiO2 09/21/16 12:00 98.1 108 18 107/67 93 Room Air 09/21/16 08:40 158/94 09/21/16 07:46 97.7 103 18 158/94 96 Room Air 09/21/16 04:00 98.4 97 20 124/65 93 Room Air 09/20/16 20:00 98.0 110 20 155/91 94 Room Air 09/20/16 16:00 97.3 77 17 145/88 95 Room Air Intake and Output 09/20/16 09/21/16 19:00 07:00 Intake Total 580 ml 420 ml Balance 580 ml 420 ml Intake Oral 340 ml 180 ml IV Total 240 ml 240 ml # Voids 5 6 Current Medications Medications (Trade) Dose Ordered Sig/Patricia Route PRN Reason Start Time Stop Time Status Last Admin Dose Admin Acetaminophen 650 mg 650 mg Q6H PRN ORAL Mild Pain/Temp > 100.5 09/18/16 13:45 10/18/16 13:44 09/18/16 13:55 Benazepril HCl (Lotensin) 20 mg DAILY ORAL 09/12/16 09:00 10/12/16 08:59 09/21/16 08:40 Dextromethorphan/ Quinidine (Nuedexta Capsule) 1 cap Q12HR ORAL 09/11/16 21:00 10/11/16 20:59 09/21/16 08:40 Dextrose/ Electrolytes (D5NS W/KCl 20meq 1000ml) 1,000 ml @ 20 mls/hr Q24H IV 09/19/16 16:00 10/19/16 15:59 09/20/16 22:35 Duloxetine HCl (Cymbalta) 30 mg DAILY ORAL 09/12/16 09:00 10/12/16 08:59 09/21/16 08:40 Ketotifen Fumarate (Zatidor) 1 drop TWICE A DAY BOTH EYES 09/11/16 18:00 10/11/16 17:59 09/21/16 08:39 Latanoprost (Xalatan) 1 drop BEDTIME BOTH EYES 09/11/16 21:00 10/11/16 20:59 09/19/16 22:03 Levofloxacin (Levaquin) 250 mg Q24H ORAL 09/17/16 17:00 09/24/16 16:59 09/20/16 17:10 Levothyroxine Sodium (Synthroid) 88 mcg DAILY@0630 ORAL 09/12/16 06:30 10/12/16 06:29 09/21/16 06:36 Lidocaine (Lidoderm 5% PATCH) 1 patch Q24H TDERMAL 09/17/16 18:00 10/17/16 17:59 09/20/16 17:10 Megestrol Acetate (Megace) 400 mg TWICE A DAY ORAL 09/20/16 19:00 10/20/16 18:59 09/21/16 08:39 Menthol/Methyl Salicylate (Bengay) 1 applic Q6H PRN TOPIC For Pain 09/17/16 17:00 10/17/16 16:59 Nitrofurantoin (Nitrofurantoin) 50 mg Q6HR ORAL 09/17/16 18:00 09/24/16 17:59 09/21/16 12:00 Patient Own Medication (Patient's Own Med) 1 ea DAILY ORAL 09/19/16 18:00 10/19/16 17:59 09/21/16 08:40 Tamsulosin HCl (Flomax) 0.4 mg BEDTIME ORAL 09/11/16 21:00 10/11/16 20:59 09/20/16 20:09 Height (Feet): 5 Height (Inches): 2.00 Weight (Pounds): 98 General Appearance: no apparent distress, alert Head: normocephalic Eyes: bilateral anicteric ENT: normal voice Neck: other - Still with increased tone, c/o discomfort with rotation and flexion. Respiratory: lungs clear - decreased breath sounds Cardiovascular: regular rate, rhythm, systolic murmur Gastrointestinal: normal bowel sounds, non tender, soft, no mass, no organomegaly, non-distended Musculoskeletal: no calf tenderness, other - L hand swollen, tender with ecchymotic changes, ? old IV infiltration. Edema: no edema noted Generalized Neurologic: other - still increased tone generally, but patient with less resistance, c/o pain. KERRI GUILLEN Sep 21, 2016 15:07
[2016-09-21 20:00] VITALS: BP 110/62
[2016-09-21] MEDS: Tamsulosin 0.4mg cap ORAL SCH (22:01)
[2016-09-21 23:45] VITALS: BP 142/75
[2016-09-22 04:00] VITALS: BP 142/71
[2016-09-22] MEDS: Nitrofurantoin 50mg cap ORAL SCH ×3 (06:08→17:48)
[2016-09-22 06:27] LABS: BASOPHILS % (AUTO) 0.9 % (0.0-2.0); EOSINOPHILS % (AUTO) 0.4 % (0.0-3.0); LYMPHOCYTES % (AUTO) 12.1 % (20.0-45.0); MEAN CORPUSCULAR HGB CONC 32.2 G/DL (32.0-36.0); MEAN CORPUSCULAR VOLUME 81 FL (80-99); MEAN PLATELET VOLUME 5.8 FL (6.5-10.1); MONOCYTES % (AUTO) 10.3 % (1.0-10.0); NEUTROPHILS % (AUTO) 76.2 % (45.0-75.0); PLATELET COUNT 398 K/UL (150-450); RED BLOOD COUNT 4.12 M/UL (4.20-5.40); RED CELL DISTRIBUTION WIDTH 12.5 % (11.6-14.8); WHITE BLOOD COUNT 8.7 K/UL (4.8-10.8)
[2016-09-22 07:14] LABS: ANION GAP 16 (5-15); CALCIUM 8.6 mg/dL (8.6-10.2); CARBON DIOXIDE 26 mEQ/L (20-30); CHLORIDE 97 mEQ/L (98-107); CREATININE 0.5 mg/dL (0.5-0.9); HEMOLYSIS 1; POTASSIUM 3.9 mEQ/L (3.4-4.9); SODIUM 139 mEQ/L (135-145)
[2016-09-22 08:00] VITALS: BP 118/64
[2016-09-22] MEDS: Megace 400mg/10ml Susp ORAL SCH ×2 (09:37→17:48)
[2016-09-22] MEDS: DULoxetine 30mg cap ORAL SCH (09:37)
[2016-09-22] MEDS: Ketotifen Fumarate 0.035% 5ml BOTH EYES SCH ×2 (09:37→18:14)
[2016-09-22] MEDS: NUPLAZID 17 MG ORAL SCH (09:38)
[2016-09-22] MEDS: Nuedexta Capsule 20/10mg ORAL SCH ×2 (09:38→21:23)
[2016-09-22 12:00] VITALS: BP 104/58
--- NOTE | 2016-09-22 15:08 | Geriatric Progress Note ---
Assessment/Plan Problems: (1) Blindness (2) Vascular dementia (3) Volume depletion (4) Mitral regurgitation and aortic stenosis (5) Depression (6) Chronic pain syndrome (7) Anxiety with somatization (8) UTI (urinary tract infection) (9) Altered mental status (10) Torticollis, acquired Assessment/Plan Intake seems improved on Megace. Labs OK. Appears stable to return to [facility] Dictated #[id number]. Discussed with: hospital staff Subjective Interval Events Patient currently sleeping, but was up earlier, reportedly eating better. No c/o pain per staff. Subjective Sleeping, no responses elicited. Geriatric Geriatric Last 24 Hour Vital Signs Date Time Temp Pulse Resp B/P Pulse Ox O2 Delivery O2 Flow Rate FiO2 09/22/16 12:00 97.3 91 18 104/58 96 Room Air 09/22/16 09:37 118/64 09/22/16 08:00 97.7 63 18 118/64 95 Room Air 09/22/16 04:00 98.2 101 18 142/71 94 Room Air 09/21/16 23:45 98.1 108 18 142/75 96 Room Air 09/21/16 20:00 98.4 110 19 110/62 90 Room Air Intake and Output 09/21/16 09/22/16 19:00 07:00 Intake Total 270 ml 420 ml Balance 270 ml 420 ml Intake Oral 30 ml 180 ml IV Total 240 ml 240 ml # Voids 3 2 Laboratory Tests Test 09/22/16 05:05 White Blood Count 8.7 K/UL (4.8-10.8) Red Blood Count 4.12 M/UL (4.20-5.40) L Hemoglobin 10.7 G/DL (12.0-16.0) L Hematocrit 33.3 % (37.0-47.0) L Mean Corpuscular Volume 81 FL (80-99) Mean Corpuscular Hemoglobin 26.0 PG (27.0-31.0) L Mean Corpuscular Hemoglobin Concent 32.2 G/DL (32.0-36.0) Red Cell Distribution Width 12.5 % (11.6-14.8) Platelet Count 398 K/UL (150-450) Mean Platelet Volume 5.8 FL (6.5-10.1) L Neutrophils (%) (Auto) 76.2 % (45.0-75.0) H Lymphocytes (%) (Auto) 12.1 % (20.0-45.0) L Monocytes (%) (Auto) 10.3 % (1.0-10.0) H Eosinophils (%) (Auto) 0.4 % (0.0-3.0) Basophils (%) (Auto) 0.9 % (0.0-2.0) Sodium Level 139 mEQ/L (135-145) Potassium Level 3.9 mEQ/L (3.4-4.9) Chloride Level 97 mEQ/L (98-107) L Carbon Dioxide Level 26 mEQ/L (20-30) Anion Gap 16 (5-15) H Blood Urea Nitrogen 8 mg/dL (7-23) Creatinine 0.5 mg/dL (0.5-0.9) Estimat Glomerular Filtration Rate mL/min (>60) Glucose Level 95 mg/dL (74-106) Calcium Level 8.6 mg/dL (8.6-10.2) Current Medications Medications (Trade) Dose Ordered Sig/Patricia Route PRN Reason Start Time Stop Time Status Last Admin Dose Admin Acetaminophen 650 mg 650 mg Q6H PRN ORAL Mild Pain/Temp > 100.5 09/18/16 13:45 10/18/16 13:44 09/18/16 13:55 Benazepril HCl (Lotensin) 20 mg DAILY ORAL 09/12/16 09:00 10/12/16 08:59 09/22/16 09:37 Dextromethorphan/ Quinidine (Nuedexta Capsule) 1 cap Q12HR ORAL 09/11/16 21:00 10/11/16 20:59 09/22/16 09:38 Dextrose/ Electrolytes (D5NS W/KCl 20meq 1000ml) 1,000 ml @ 20 mls/hr Q24H IV 09/19/16 16:00 10/19/16 15:59 09/22/16 04:21 Duloxetine HCl (Cymbalta) 30 mg DAILY ORAL 09/12/16 09:00 10/12/16 08:59 09/22/16 09:37 Ketotifen Fumarate (Zatidor) 1 drop TWICE A DAY BOTH EYES 09/11/16 18:00 10/11/16 17:59 09/22/16 09:37 Latanoprost (Xalatan) 1 drop BEDTIME BOTH EYES 09/11/16 21:00 10/11/16 20:59 09/21/16 22:01 Levofloxacin (Levaquin) 250 mg Q24H ORAL 09/17/16 17:00 09/24/16 16:59 09/21/16 17:31 Levothyroxine Sodium (Synthroid) 88 mcg DAILY@0630 ORAL 09/12/16 06:30 10/12/16 06:29 09/22/16 06:08 Lidocaine (Lidoderm 5% PATCH) 1 patch Q24H TDERMAL 09/17/16 18:00 10/17/16 17:59 09/21/16 17:31 Megestrol Acetate (Megace) 400 mg TWICE A DAY ORAL 09/20/16 19:00 10/20/16 18:59 09/22/16 09:37 Menthol/Methyl Salicylate (Bengay) 1 applic Q6H PRN TOPIC For Pain 09/17/16 17:00 10/17/16 16:59 Nitrofurantoin (Nitrofurantoin) 50 mg Q6HR ORAL 09/17/16 18:00 09/24/16 17:59 09/22/16 14:53 Patient Own Medication (Patient's Own Med) 1 ea DAILY ORAL 09/19/16 18:00 10/19/16 17:59 09/22/16 09:38 Tamsulosin HCl (Flomax) 0.4 mg BEDTIME ORAL 09/11/16 21:00 10/11/16 20:59 09/21/16 22:01 Height (Feet): 5 Height (Inches): 2.00 Weight (Pounds): 98 General Appearance: no apparent distress, other - sleeping Eyes: bilateral anicteric Neck: no mass, other - still increased cervical tone Respiratory: lungs clear Cardiovascular: regular rate, rhythm, systolic murmur Gastrointestinal: non tender, soft, no mass, no organomegaly, non-distended Musculoskeletal: other - L hand less tender/swollen. Edema: no edema noted Generalized Neurologic: no new focality KERRI GUILLEN Sep 22, 2016 15:08
[2016-09-22] MEDS ORDERED: Patient's Own Med ORAL (15:30)
[2016-09-22] MEDS ORDERED: LEVAQUIN250 M1 ORAL (15:30)
[2016-09-22] MEDS ORDERED: MEGACE ORA400 MG/10 ORAL (15:30)
[2016-09-22] MEDS ORDERED: NUEDEXTA 20-101 EAC1 ORAL (15:30)
[2016-09-22] MEDS ORDERED: NITROFURANTOIN50 MG ORAL (15:30)
[2016-09-22 16:57] VITALS: BP 124/65
[2016-09-22] MEDS: Tamsulosin 0.4mg cap ORAL SCH (21:00)
--- NOTE | 2016-09-22 22:38 | Cardiology Report ---
APPROVED REPORT EKG Measurement Heart [id number] ND [id number] [id number] Sinus tachycardia with premature atrial complexes Nonspecific ST abnormality Abnormal ECG
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
== END 2016-09-22 22:15 | disposition home health service (06) | DRG 689 ==
LOC: EMR 12:40 → 4W 13:01 → EDBEDREQ 13:19
DX: N39.0 Urinary tract infection, site not specified (principal); G93.40 Encephalopathy, unspecified; I95.9 Hypotension, unspecified; E87.1 Hypo-osmolality and hyponatremia; R63.0 Anorexia; B96.4 Proteus (mirabilis) (morganii) as the cause of diseases classified elsewhere; I08.0 Rheumatic disorders of both mitral and aortic valves; M48.50XA Collapsed vertebra, not elsewhere classified, site unspecified, initial encounter for fracture; F01.50 Vascular dementia, unspecified severity, without behavioral disturbance, psychotic disturbance, mood disturbance, and anxiety; B96.20 Unspecified Escherichia coli [E. coli] as the cause of diseases classified elsewhere; Z16.12 Extended spectrum beta lactamase (ESBL) resistance; M81.0 Age-related osteoporosis without current pathological fracture; I10 Essential (primary) hypertension; E78.5 Hyperlipidemia, unspecified; H54.8 Legal blindness, as defined in USA; K21.9 Gastro-esophageal reflux disease without esophagitis; H40.9 Unspecified glaucoma; H91.93 Unspecified hearing loss, bilateral; G89.4 Chronic pain syndrome; F32.9 Major depressive disorder, single episode, unspecified; M75.02 Adhesive capsulitis of left shoulder; R13.10 Dysphagia, unspecified; G47.30 Sleep apnea, unspecified; Z99.3 Dependence on wheelchair; R45.86 Emotional lability; I69.919 Unspecified symptoms and signs involving cognitive functions following unspecified cerebrovascular disease; F41.8 Other specified anxiety disorders
CPT/HCPCS: 36415; 70450; 71010; 74176; 74230; 80048; 80053; 81003; 82550; 82553; 82607; 83690; 83735; 83880; 84443; 84484; 85025; 85610; 85730; 87040; 87081; 87086; 87181; 93005; 93306

== ENCOUNTER 2016-10-04 10:36 | Inpatient (IN) | payer MEDICARE ==
[~2016-10-04] VITALS: Ht 157.5 cm; Wt 59.0 kg
[~2016-10-04 10:36] MED LIST changes: +ABILIFY2 MG ORAL; +LEVAQUIN250 M1 ORAL; +LEVOTHYROXINE88 MCG ORAL; +MEGACE ORA400 MG/10 ORAL; +NITROFURANTOIN50 MG ORAL; +NUEDEXTA 20-101 EAC1 ORAL; +PRILOSEC OTC20 MG ORAL; +Patient's Own Med ORAL; +RISEDRONATE SOD35 MG PO; +SULFAMETHOXAZO480 ML ORAL
[2016-10-04 11:17] LABS: BASOPHILS % (AUTO) 0.5 % (0.0-2.0); EOSINOPHILS % (AUTO) 0.2 % (0.0-3.0); LYMPHOCYTES % (AUTO) 9.7 % (20.0-45.0); MEAN CORPUSCULAR HEMOGLOBIN 24.8 PG (27.0-31.0); MEAN CORPUSCULAR HGB CONC 30.9 G/DL (32.0-36.0); MEAN CORPUSCULAR VOLUME 80 FL (80-99); MEAN PLATELET VOLUME 6.7 FL (6.5-10.1); MONOCYTES % (AUTO) 8.5 % (1.0-10.0); NEUTROPHILS % (AUTO) 81.1 % (45.0-75.0); PLATELET COUNT 418 K/UL (150-450); RED BLOOD COUNT 4.48 M/UL (4.20-5.40); RED CELL DISTRIBUTION WIDTH 13.5 % (11.6-14.8); WHITE BLOOD COUNT 15.5 K/UL (4.8-10.8)
[2016-10-04 11:18] VITALS: BP 92/44
[2016-10-04] MEDS ORDERED: SULFAMETHOXAZO480 ML ORAL (11:24)
[2016-10-04] MEDS ORDERED: ACTONEL35 MG ORAL (11:24)
[2016-10-04] MEDS ORDERED: RISPERIDONE1 MG/1 M1 PO (11:24)
[2016-10-04 11:31] LABS: ALANINE AMINOTRANSFERASE 24 U/L (3-33); ALBUMIN/GLOBULIN RATIO 0.8 (1.0-2.7); ANION GAP 20 (5-15); ASPARTATE AMINO TRANSFERASE 42 U/L (5-40); CARBON DIOXIDE 25 mEQ/L (20-30); CHLORIDE 111 mEQ/L (98-107); CREATININE 1.8 mg/dL (0.5-0.9); HEMOLYSIS 0; SODIUM 156 mEQ/L (135-145); TOTAL PROTEIN 7.3 g/dL (6.6-8.7)
[2016-10-04 11:32] LABS: APPEARANCE,URINE SLIGHTLY CLOUDY; KETONES,URINE NEGATIVE (NEGATIVE); LEUKOCYTE ESTERASE ,URINE 1+ (NEGATIVE); NITRITE,URINE NEGATIVE (NEGATIVE); PH,URINE 5 (4.5-8.0); PROTEIN,URINE 2+ (NEGATIVE); UROBILINOGEN,URINE NORMAL MG/DL (0.0-1.0)
[2016-10-04 11:42] LABS: AMORPHOUS SEDIMENT,UR MODERATE /LPF; BACTERIA,URINE MODERATE /HPF; ICTOTEST NEGATIVE; SQUAMOUS EPITHELIAL CELL,UR MANY /LPF (NONE/OCC)
[2016-10-04 11:45] LABS: CKMB 3.4 ng/mL (< 3.8)
[2016-10-04 11:46] LABS: TROPONIN I < 0.30 ng/mL (<=0.30)
--- NOTE | 2016-10-04 11:47 | Diagnostic Imaging Report ---
Indication: SOB Technique: One view of the chest Comparison: 2016 Findings: No acute infiltrates, effusions, or congestion. Tortuous calcified aorta. Normal heart size. Upper mediastinum unremarkable. Previously demonstrated left-sided pleural effusion and bilateral interstitial congestion have resolved Impression: No acute process. Previously demonstrated parenchymal disease and left-sided pleural effusion are no longer evident
[2016-10-04] MEDS ORDERED: Zosyn 3.375gm inj ONE (11:50)
[2016-10-04] MEDS ORDERED: Piperacillin/Tazobactam 3.375 GM in NS 110 ML IVPB ONE (12:00)
[2016-10-04] MEDS ORDERED: Vancomycin 1 GM in NS 275 ML IVPB ONE (12:00)
[2016-10-04] MEDS ORDERED: Vancomycin 1gm inj IVPB ONE (12:17)
--- NOTE | 2016-10-04 12:25 | Emergency Room Report ---
History of Present Illness General Chief Complaint: Generalized Weakness Source: Patient, Family Member, Medical Record Present Illness HPI [id number] sent from [facility] for "hypotension, tachycardia, failure to thrive". [place] [facility] [place]." Daughter bedside endorsing patient not drinking enough fluids. has been evaluated by speech pathologist recently. Blood Cx x2 from previous visit didnt show growth. Urine Cx show susceptible to zosyn. Allergies: Coded Allergies: NO KNOWN ALLERGIES (Unverified Allergy, Unknown, 03/22/15) Patient History Past Medical History: see triage record, old chart reviewed Past Surgical History: unable to obtain Pertinent Family History: unable to obtain Social History: Denies: alcohol use, drug use, smoking Now: No Immunizations: UTD Reviewed Nursing Documentation: PMH: Agreed, PSxH: Agreed Nursing Documentation-PMH Past Medical History: No History, Except For Hx Hypertension: Yes Hx Gastrointestinal Problems: Yes - GERD, Swallowing difficulty History Of Psychiatric Problem: Yes - depression, Chronic pain syndrome anxiety Hx Neurological Problems: Yes - hip pain, arthralgia, ambulate with assistance Review of Systems All Other Systems: negative except mentioned in HPI Physical Exam Vital Signs Date Time Temp Pulse Resp B/P Pulse Ox O2 Delivery O2 Flow Rate FiO2 10/04/16 10:39 99.5 123 20 136/100 99 Room Air Sp02 EP Interpretation: reviewed, abnormal General Appearance: normal inspection, well appearing, no apparent distress, alert, cachetic, Chronically Ill Head: normocephalic, atraumatic Eyes: bilateral eye EOMI, bilateral eye PERRL ENT: normal ENT inspection, hearing grossly normal, normal voice Neck: normal inspection, full range of motion, supple, no bony tend Respiratory: normal inspection, lungs clear, normal breath sounds, no respiratory distress, no retraction, no wheezing Cardiovascular #1: regular rate, rhythm, no edema Gastrointestinal: normal inspection, normal bowel sounds, non tender, soft, no guarding, no hernia Genitourinary: no CVA tenderness Musculoskeletal: normal inspection, back normal, normal range of motion, Heather' s Sign negative Neurologic: normal inspection, alert, responsive, speech normal Psychiatric: normal inspection, judgement/insight normal, mood/affect normal Skin: other - dry mucous membranes Medical Decision Making Medicare Attestation I Neymar Rhoades MD hereby attest that the medical record entry for date of service, 05/12/16 accurately reflects signatures/notations that I made in my capacity as MD when I treated/diagnosed the above listed Medicare beneficiary. I attest that this information is true, accurate and complete to the best of my knowledge. I understand that any falsification, omission, or concealment of material fact may subject me to administrative, civil, or criminal liability. This patient warrants hospital admission for extreme of age and has a condition that cannot be treated as outpatient. Diagnostic Impression: Primary Impression: UTI (urinary tract infection) Qualified Codes: N30.01 - Acute cystitis with hematuria Additional Impressions: Sepsis Qualified Codes: A41.9 - Sepsis, unspecified organism DEAN (acute kidney injury) Hypernatremia Dehydration ER Course Labs: Leuks 15k. UA grossly infected. Acute hypernatremia and DEAN Sepsis - febrile, hypotensive - likely UTI; CXR doesnt show PNA - Blood, urine Cx pending - Empiric Vanc/Zosyn given Hypernatremia - with DEAN, likely re-renal dehydration - Decreased PO consumption - Tx with hydration Endorsed to Dr Stanley for tele admission at 1215pn EKG Diagnostic Results Rate: tachycardiac, other - PACs Rhythm: NSR ST Segments: no acute changes Rhythm Strip Diag. Results EP Interpretation: yes Rate: 104 Rhythm: NSR, no PVC's, no ectopy Chest X-Ray Diagnostic Results EP Interpretation: Yes Findings: no consolidation, no effusion, no pneumothorax, no acute cardiopulmonary disease Number of Views: 1 Last Vital Signs Date Time Temp Pulse Resp B/P Pulse Ox O2 Delivery O2 Flow Rate FiO2 10/04/16 11:18 99.5 113 20 92/44 99 Room Air Status: improved Disposition: ADMITTED INPATIENT Condition: Serious Referrals: KERRI STANLEY (PCP) NEYMAR RHOADES M.D. Oct 04, 2016 12:25
[2016-10-04 12:30] VITALS: BP 100/62
[2016-10-04 12:43] LABS: REFLEX LACTIC ACID YES OR NO YES
[2016-10-04 13:30] VITALS: BP 97/83
[2016-10-04 14:30] VITALS: BP 122/84
[2016-10-04 16:00] VITALS: BP 132/47
[2016-10-04] MEDS ORDERED: Acetaminophen 650 MG SUPP RECTAL PRN ×2 (16:00)
--- NOTE | 2016-10-04 16:13 | Geriatric Progress Note ---
Subjective Interval Events Patient returns primarily with hyponatremia, poor intake. May have UTI, although only 10 wbc in u/a. Discussed extensively with dtr, now wishes to have GT for feeding due to poor intake, skin breakdown. Dr. Ledezma to eval re PEG. Hydrate, empirical Zosyn. Asked cardiology to f/u given severe valvular disease. Dictated #[id number]. Geriatric Geriatric Last 24 Hour Vital Signs Date Time Temp Pulse Resp B/P Pulse Ox O2 Delivery O2 Flow Rate FiO2 10/04/16 15:06 99.5 108 20 122/84 99 Nasal Cannula 2.0 10/04/16 14:30 108 20 122/84 99 Nasal Cannula 2.0 10/04/16 13:30 93 17 97/83 98 Nasal Cannula 2.0 10/04/16 12:30 99 25 100/62 98 Nasal Cannula 3.0 10/04/16 11:18 99.5 113 20 92/44 99 Room Air 10/04/16 10:39 99.5 123 20 136/100 99 Room Air Laboratory Tests Test 10/04/16 10:54 10/04/16 11:23 10/04/16 13:15 White Blood Count 15.5 K/UL (4.8-10.8) H Red Blood Count 4.48 M/UL (4.20-5.40) Hemoglobin 11.1 G/DL (12.0-16.0) L Hematocrit 35.9 % (37.0-47.0) L Mean Corpuscular Volume 80 FL (80-99) Mean Corpuscular Hemoglobin 24.8 PG (27.0-31.0) L Mean Corpuscular Hemoglobin Concent 30.9 G/DL (32.0-36.0) L Red Cell Distribution Width 13.5 % (11.6-14.8) Platelet Count 418 K/UL (150-450) Mean Platelet Volume 6.7 FL (6.5-10.1) Neutrophils (%) (Auto) 81.1 % (45.0-75.0) H Lymphocytes (%) (Auto) 9.7 % (20.0-45.0) L Monocytes (%) (Auto) 8.5 % (1.0-10.0) Eosinophils (%) (Auto) 0.2 % (0.0-3.0) Basophils (%) (Auto) 0.5 % (0.0-2.0) Sodium Level 156 mEQ/L (135-145) H Potassium Level 4.0 mEQ/L (3.4-4.9) Chloride Level 111 mEQ/L (98-107) H Carbon Dioxide Level 25 mEQ/L (20-30) Anion Gap 20 (5-15) H Blood Urea Nitrogen 66 mg/dL (7-23) H Creatinine 1.8 mg/dL (0.5-0.9) H Estimat Glomerular Filtration Rate mL/min (>60) Glucose Level 148 mg/dL (74-106) H Lactic Acid Level 2.10 mmol/L (0.66-2.22) 1.40 mmol/L (0.66-2.22) Calcium Level 9.0 mg/dL (8.6-10.2) Total Bilirubin 0.6 mg/dL (0.0-1.2) Aspartate Amino Transf (AST/SGOT) 42 U/L (5-40) H Alanine Aminotransferase (ALT/SGPT) 24 U/L (3-33) Alkaline Phosphatase 58 U/L (35-104) Total Creatine Kinase 682 U/L (26-140) H Creatine Kinase MB 3.4 ng/mL (< 3.8) Creatine Kinase MB Relative Index 0.4 Troponin I < 0.30 ng/mL (<=0.30) Total Protein 7.3 g/dL (6.6-8.7) Albumin 3.4 g/dL (3.5-5.2) L Globulin 3.9 g/dL Albumin/Globulin Ratio 0.8 (1.0-2.7) L Urine Color Meredith Urine Appearance Slightly cloudy Urine pH 5 (4.5-8.0) Urine Specific [place] 1.020 (1.005-1.035) Urine Protein 2+ (NEGATIVE) H Urine Glucose (UA) Negative (NEGATIVE) Urine Ketones Negative (NEGATIVE) Urine Occult Blood 2+ (NEGATIVE) H Urine Nitrite Negative (NEGATIVE) Urine Bilirubin Negative (NEGATIVE) Urine Ictotest Negative Urine Urobilinogen Normal MG/DL (0.0-1.0) Urine Leukocyte Esterase 1+ (NEGATIVE) H Urine RBC 5-10 /HPF (0 - 2) H Urine WBC 10-15 /HPF (0 - 2) H Urine Squamous Epithelial Cells Many /LPF (NONE/OCC) H Urine Amorphous Sediment Moderate /LPF (NONE) H Urine Bacteria Moderate /HPF (NONE) H Current Medications Medications (Trade) Dose Ordered Sig/Patricia Route PRN Reason Start Time Stop Time Status Last Admin Dose Admin Acetaminophen (Tylenol) 650 mg Q4H PRN ORAL Mild Pain (Pain Scale 1-3) 10/04/16 16:00 11/03/16 15:59 Acetaminophen (Tylenol) 650 mg Q4H PRN ORAL T>100.5 10/04/16 16:00 11/03/16 15:59 Acetaminophen (Tylenol) 650 mg Q4H PRN RECTAL Mild Pain (Pain Scale 1-3) 10/04/16 16:00 11/03/16 15:59 UNV Acetaminophen (Tylenol) 650 mg Q4H PRN RECTAL fever 10/04/16 16:00 11/03/16 15:59 UNV Benazepril HCl (Lotensin) 20 mg DAILY ORAL 10/05/16 09:00 11/04/16 08:59 Dextromethorphan/ Quinidine (Nuedexta Capsule) 1 cap Q12HR ORAL 10/04/16 21:00 11/03/16 20:59 Dextrose (Dextrose 50%) STAT PRN IV Hypoglycemia 10/04/16 16:30 11/03/16 16:29 Dextrose/Sodium Chloride (D5 0.45% NS) 1,000 ml @ 125 mls/hr Q8H IV 10/04/16 17:00 11/03/16 16:59 Docusate Sodium (Colace) 100 mg EVERY 12 HOURS ORAL 10/04/16 21:00 11/03/16 20:59 Duloxetine HCl (Cymbalta) 30 mg DAILY ORAL 10/05/16 09:00 11/04/16 08:59 Fluticasone Propionate (Flonase) 1 spray TWICE A DAY NASAL 10/04/16 18:00 11/03/16 17:59 Heparin Sodium (Porcine) (Heparin 5000 units/ml) 5,000 units EVERY 12 HOURS SUBQ 10/04/16 21:00 11/03/16 20:59 Levothyroxine Sodium (Synthroid) 88 mcg DAILY@0630 ORAL 10/05/16 06:30 11/04/16 06:29 Megestrol Acetate (Megace) 400 mg TWICE A DAY ORAL 10/04/16 18:00 11/03/16 17:59 Pantoprazole (Protonix) 40 mg DAILY IV 10/05/16 09:00 11/04/16 08:59 Patient Own Medication (Patient's Own Med) 1 ea DAILY ORAL 10/05/16 09:00 11/04/16 08:59 UNV Patient Own Medication (Patient's Own Med) 1 ea DAILY ORAL 10/05/16 09:00 11/04/16 08:59 UNV Patient Own Medication (Patient's Own Med) 1 ea DAILY ORAL 10/05/16 09:00 11/04/16 08:59 UNV Sodium Chloride 1,000 ml @ 300 mls/hr Q3H20M IV 10/04/16 14:30 11/03/16 14:29 10/04/16 14:57 Sodium Chloride 1,800 ml @ 1,000 mls/hr Q1H48M ONCE IVLG 10/04/16 14:30 10/04/16 16:17 10/04/16 14:35 Tamsulosin HCl (Flomax) 0.4 mg BEDTIME ORAL 10/04/16 21:00 11/03/16 20:59 Height (Feet): 5 Height (Inches): 2.00 Weight (Pounds): 130 KERRI GUILLEN Oct 04, 2016 16:13
[2016-10-04] MEDS: D5 1/2NS 1,000 ML IV SCH (16:46)
[2016-10-04] MEDS: Flonase Nasal Inhaler 16gm NASAL SCH (18:06)
[2016-10-04] MEDS: Megace 400mg/10ml Susp ORAL SCH (18:23)
[2016-10-04 20:00] VITALS: BP 98/51
[2016-10-04] MEDS: Docusate 100mg tablet ORAL SCH (20:27)
[2016-10-04] MEDS: Tamsulosin 0.4mg cap ORAL SCH (20:27)
[2016-10-04] MEDS: Nuedexta Capsule 20/10mg ORAL SCH (20:30)
[2016-10-04] MEDS: Heparin 5000 units/ml inj SUBQ SCH (20:30)
[2016-10-05 00:30] VITALS: BP 97/52
[2016-10-05] MEDS ORDERED: Piperacillin/Tazobactam 3.375 GM in D5W 110 ML IVPB SCH (00:45)
[2016-10-05] MEDS: D5 1/2NS 1,000 ML IV SCH ×3 (01:28→14:33)
[2016-10-05] MEDS ORDERED: Zosyn 3.375gm inj ONE (01:30)
[2016-10-05 04:14] VITALS: BP 90/42
--- NOTE | 2016-10-05 06:52 | General Progress Note ---
Assessment/Plan Assessment/Plan GI Consultation Assessment - Poor po - dehydration, hypernatremia - UTI - Azotemia Recommendation - NPO - IVF - Ab - PEG in am Thank you Brandon Ledezma MD Subjective Allergies: Coded Allergies: NO KNOWN ALLERGIES (Unverified Allergy, Unknown, 03/22/15) Objective Last 24 Hour Vital Signs Date Time Temp Pulse Resp B/P Pulse Ox O2 Delivery O2 Flow Rate FiO2 10/05/16 04:14 97.7 86 20 90/42 96 Nasal Cannula 2.0 10/05/16 04:00 93 10/05/16 00:30 97.3 80 20 97/52 98 Nasal Cannula 2.0 10/05/16 00:00 93 10/04/16 20:00 92 10/04/16 20:00 97.0 97 20 98/51 94 Nasal Cannula 10/04/16 16:00 98.1 94 20 132/47 99 Nasal Cannula 2.0 10/04/16 16:00 98 10/04/16 15:06 99.5 108 20 122/84 99 Nasal Cannula 2.0 10/04/16 14:30 108 20 122/84 99 Nasal Cannula 2.0 10/04/16 13:30 93 17 97/83 98 Nasal Cannula 2.0 10/04/16 12:30 99 25 100/62 98 Nasal Cannula 3.0 10/04/16 11:18 99.5 113 20 92/44 99 Room Air 10/04/16 10:39 99.5 123 20 136/100 99 Room Air Intake and Output 10/04/16 10/05/16 19:00 07:00 Intake Total 3485 ml 100 ml Output Total 325 ml 50 ml Balance 3160 ml 50 ml Intake Oral 50 ml 100 ml IV Total 3435 ml Output Urine Total 325 ml 50 ml # Voids 1 Laboratory Tests 10/04/16 10:54: White Blood Count 15.5H, Red Blood Count 4.48, Hemoglobin 11.1L, Hematocrit 35.9L, Mean Corpuscular Volume 80, Mean Corpuscular Hemoglobin 24.8L, Mean Corpuscular Hemoglobin Concent 30.9L, Red Cell Distribution Width 13.5, Platelet Count 418, Mean Platelet Volume 6.7, Neutrophils (%) (Auto) 81.1H, Lymphocytes (%) (Auto) 9.7L, Monocytes (%) (Auto) 8.5, Eosinophils (%) (Auto) 0.2, Basophils (%) (Auto) 0.5, Sodium Level 156H, Potassium Level 4.0, Chloride Level 111H, Carbon Dioxide Level 25, Anion Gap 20H, Blood Urea Nitrogen 66H, Creatinine 1.8H, Estimat Glomerular Filtration Rate , Glucose Level 148H, Lactic Acid Level 2.10, Calcium Level 9.0, Total Bilirubin 0.6, Aspartate Amino Transf (AST/SGOT) 42H, Alanine Aminotransferase (ALT/SGPT) 24, Alkaline Phosphatase 58, Total Creatine Kinase 682H, Creatine Kinase MB 3.4, Creatine Kinase MB Relative Index 0.4, Troponin I < 0.30, Total Protein 7.3, Albumin 3.4L , Globulin 3.9, Albumin/Globulin Ratio 0.8L 10/04/16 11:23: Urine Color Meredith, Urine Appearance Slightly cloudy, Urine pH 5, Urine Specific [place] 1.020, Urine Protein 2+H, Urine Glucose (UA) Negative, Urine Ketones Negative, Urine Occult Blood 2+H, Urine Nitrite Negative, Urine Bilirubin Negative, Urine Ictotest Negative, Urine Urobilinogen Normal, Urine Leukocyte Esterase 1+H, Urine RBC 5-10H, Urine WBC 10-15H, Urine Squamous Epithelial Cells ManyH, Urine Amorphous Sediment ModerateH, Urine Bacteria ModerateH 10/04/16 13:15: Lactic Acid Level 1.40 Height (Feet): 5 Height (Inches): 2.00 Weight (Pounds): 130 ALEXANDRABRANDON Oct 05, 2016 06:52
[2016-10-05 08:18] LABS: BASOPHILS % (AUTO) 0.9 % (0.0-2.0); EOSINOPHILS % (AUTO) 1.9 % (0.0-3.0); LYMPHOCYTES % (AUTO) 13.3 % (20.0-45.0); MEAN CORPUSCULAR HEMOGLOBIN 25.3 PG (27.0-31.0); MEAN CORPUSCULAR HGB CONC 31.1 G/DL (32.0-36.0); MEAN CORPUSCULAR VOLUME 82 FL (80-99); MEAN PLATELET VOLUME 7.2 FL (6.5-10.1); MONOCYTES % (AUTO) 8.7 % (1.0-10.0); NEUTROPHILS % (AUTO) 75.2 % (45.0-75.0); PLATELET COUNT 273 K/UL (150-450); RED BLOOD COUNT 3.15 M/UL (4.20-5.40); RED CELL DISTRIBUTION WIDTH 14.1 % (11.6-14.8); WHITE BLOOD COUNT 10.8 K/UL (4.8-10.8)
--- NOTE | 2016-10-05 08:28 | Consultation ---
DATE OF CONSULTATION: 10/05/2016 GASTROENTEROLOGY CONSULTATION REPORT: CHIEF COMPLAINT: I was asked to see this patient by Dr. Alexey Stanley for evaluation of gastrostomy tube placement. HISTORY OF PRESENT ILLNESS: The patient is a 81-year-old white woman with cognitive dysfunction, who was brought in due to dehydration and for gastrostomy tube placement. The patient has had a poor oral intake and family had finally decided to proceed with a gastrostomy tube placement. Given the process admission, the patient was found to be dehydrated with hypernatremia and possible urinary tract infection. The patient herself is unable to provide any history and most of the information is only available from the chart records. PAST MEDICAL HISTORY: History of arthralgia, hemorrhoids, dementia, blindness, depression, and chronic pain syndrome, mitral regurgitation, aortic stenosis, anxiety with somatization, . MEDICATIONS: See chart for details. SOCIAL HISTORY: The patient has had no recent history of smoking or drinking. FAMILY HISTORY: Noncontributory. REVIEW OF SYSTEMS: Otherwise negative. PHYSICAL EXAMINATION: GENERAL: The patient is a debilitated elderly white woman, seen in her room HEENT: Normocephalic and atraumatic. Sclerae anicteric. Oropharynx clear. NECK: Supple. CHEST: Clear to auscultation. CARDIOVASCULAR: Revealed regular rate. ABDOMEN: Soft. EXTREMITIES: Revealed no edema. LABORATORY DATA: Noted. ASSESSMENT: This patient presents with poor oral intake with resultant dehydration and hypernatremia and azotemia. In addition, she may also have degree of urinary tract infection, which should be treated. The patient should be hydrated with IV fluids. Electrolytes and renal parameter should be followup to improvement. The patient is a good candidate for gastrostomy tube placement for long-term enteral feeding access and this can be done tomorrow once the patient is more improved. In the mean time, antibiotics can also be given for urinary tract infection. RECOMMENDATIONS: Per above discussion and per orders written in the chart. Thank you for asking me to participate in care of this patient . Brandon Ledezma M.D. DR: Arsalan JOB#: [id number] CC:
[2016-10-05] MEDS: ALCAFTADINE BOTH EYES SCH (08:34)
[2016-10-05] MEDS: Megace 400mg/10ml Susp ORAL SCH ×2 (08:34→17:39)
[2016-10-05] MEDS: Nuedexta Capsule 20/10mg ORAL SCH ×2 (08:35→21:25)
[2016-10-05] MEDS: Pantoprazole Inj IV SCH (08:35)
[2016-10-05] MEDS: Heparin 5000 units/ml inj SUBQ SCH ×2 (08:38→21:00)
[2016-10-05] MEDS: Docusate 100mg tablet ORAL SCH ×2 (08:38→21:24)
[2016-10-05] MEDS: NUPLAZID 17 MG ORAL SCH (08:39)
[2016-10-05] MEDS: Benazepril 10mg tab ORAL SCH (08:39)
[2016-10-05] MEDS: DULoxetine 30mg cap ORAL SCH (08:39)
[2016-10-05 08:55] VITALS: BP 102/56
[2016-10-05 09:02] LABS: ANION GAP 14 (5-15); CALCIUM 7.4 mg/dL (8.6-10.2); CARBON DIOXIDE 22 mEQ/L (20-30); CHLORIDE 120 mEQ/L (98-107); CREATININE 1.1 mg/dL (0.5-0.9); HEMOLYSIS 2; POTASSIUM 3.8 mEQ/L (3.4-4.9); SODIUM 156 mEQ/L (135-145)
[2016-10-05] MEDS: Flonase Nasal Inhaler 16gm NASAL SCH ×2 (09:18→17:39)
[2016-10-05] MEDS ORDERED: D5 1/2NS 1000ml IV ONE (09:53)
[2016-10-05] MEDS ORDERED: Tubing IV Secondary IV ONE (09:53)
[2016-10-05 12:00] VITALS: BP 89/46
--- NOTE | 2016-10-05 13:12 | Geriatric Progress Note ---
Assessment/Plan Problems: (1) Sacral decubitus ulcer, stage III (2) DEAN (acute kidney injury) (3) Sepsis (4) UTI (urinary tract infection) (5) Hypernatremia (6) Anxiety with somatization (7) Mitral regurgitation and aortic stenosis (8) Altered mental status (9) Chronic pain syndrome (10) Depression (11) Blindness (12) Vascular dementia (13) Volume depletion Assessment/Plan Patient improved with hydration, empiric antibiotics. Continue present tx. PEG planned, patient should be able to tolerate with acceptable risk at this time. Dysphagia, malnutrition, await PEG. Postpone P.T. given patient's weakness at this time. Dtr unable to retrieve Lumigan, start Travatan. Recheck labs. Discussed with: hospital staff Subjective Interval Events Patient responds but slightly withdrawn. Staff reports 50% intake, but some coughing with thickened liquids. Patient denies pain. Family requests P.T. eval. Multiple skin lesions as per nursing documentation. Labs with some improvement in DEAN. Subjective Unable to elicit detailed responses. Geriatric Geriatric Last 24 Hour Vital Signs Date Time Temp Pulse Resp B/P Pulse Ox O2 Delivery O2 Flow Rate FiO2 10/05/16 08:55 97.7 107 21 102/56 95 Room Air 10/05/16 08:00 102 10/05/16 04:14 97.7 86 20 90/42 96 Nasal Cannula 2.0 10/05/16 04:00 93 10/05/16 00:30 97.3 80 20 97/52 98 Nasal Cannula 2.0 10/05/16 00:00 93 10/04/16 20:00 92 10/04/16 20:00 97.0 97 20 98/51 94 Nasal Cannula 10/04/16 16:00 98.1 94 20 132/47 99 Nasal Cannula 2.0 10/04/16 16:00 98 10/04/16 15:06 99.5 108 20 122/84 99 Nasal Cannula 2.0 10/04/16 14:30 108 20 122/84 99 Nasal Cannula 2.0 10/04/16 13:30 93 17 97/83 98 Nasal Cannula 2.0 Intake and Output 10/04/16 10/05/16 19:00 07:00 Intake Total 3485 ml 225 ml Output Total 325 ml 50 ml Balance 3160 ml 175 ml Intake Oral 50 ml 100 ml IV Total 3435 ml 125 ml Output Urine Total 325 ml 50 ml # Voids 1 Laboratory Tests Test 10/04/16 13:15 10/05/16 06:22 Lactic Acid Level 1.40 mmol/L (0.66-2.22) White Blood Count 10.8 K/UL (4.8-10.8) Red Blood Count 3.15 M/UL (4.20-5.40) L Hemoglobin 8.0 G/DL (12.0-16.0) L Hematocrit 25.7 % (37.0-47.0) L Mean Corpuscular Volume 82 FL (80-99) Mean Corpuscular Hemoglobin 25.3 PG (27.0-31.0) L Mean Corpuscular Hemoglobin Concent 31.1 G/DL (32.0-36.0) L Red Cell Distribution Width 14.1 % (11.6-14.8) Platelet Count 273 K/UL (150-450) Mean Platelet Volume 7.2 FL (6.5-10.1) Neutrophils (%) (Auto) 75.2 % (45.0-75.0) H Lymphocytes (%) (Auto) 13.3 % (20.0-45.0) L Monocytes (%) (Auto) 8.7 % (1.0-10.0) Eosinophils (%) (Auto) 1.9 % (0.0-3.0) Basophils (%) (Auto) 0.9 % (0.0-2.0) Sodium Level 156 mEQ/L (135-145) H Potassium Level 3.8 mEQ/L (3.4-4.9) Chloride Level 120 mEQ/L (98-107) H Carbon Dioxide Level 22 mEQ/L (20-30) Anion Gap 14 (5-15) Blood Urea Nitrogen 45 mg/dL (7-23) H Creatinine 1.1 mg/dL (0.5-0.9) H Estimat Glomerular Filtration Rate mL/min (>60) Glucose Level 106 mg/dL (74-106) Calcium Level 7.4 mg/dL (8.6-10.2) L Total Creatine Kinase 402 U/L (26-140) H Current Medications Medications (Trade) Dose Ordered Sig/Patricia Route PRN Reason Start Time Stop Time Status Last Admin Dose Admin Acetaminophen (Tylenol) 650 mg Q4H PRN ORAL Mild Pain (Pain Scale 1-3) 10/04/16 16:00 11/03/16 15:59 Acetaminophen (Tylenol) 650 mg Q4H PRN ORAL T>100.5 10/04/16 16:00 11/03/16 15:59 Acetaminophen (Tylenol) 650 mg Q4H PRN RECTAL Mild Pain (Pain Scale 1-3) 10/04/16 16:00 11/03/16 15:59 Acetaminophen (Tylenol) 650 mg Q4H PRN RECTAL T>100.5 10/04/16 16:00 11/03/16 15:59 Benazepril HCl (Lotensin) 20 mg DAILY ORAL 10/05/16 09:00 11/04/16 08:59 Clotrimazole 1 applic 1 applic THREE TIMES A DAY TOPIC 10/04/16 18:00 11/03/16 17:59 10/05/16 08:49 Dextromethorphan/ Quinidine (Nuedexta Capsule) 1 cap Q12HR ORAL 10/04/16 21:00 11/03/16 20:59 10/05/16 08:35 Dextrose (Dextrose 50%) STAT PRN IV Hypoglycemia 10/04/16 16:30 11/03/16 16:29 Dextrose/Sodium Chloride (D5 0.45% NS) 1,000 ml @ 125 mls/hr Q8H IV 10/04/16 17:00 11/03/16 16:59 10/05/16 01:28 Docusate Sodium (Colace) 100 mg EVERY 12 HOURS ORAL 10/04/16 21:00 11/03/16 20:59 10/05/16 08:38 Duloxetine HCl (Cymbalta) 30 mg DAILY ORAL 10/05/16 09:00 11/04/16 08:59 10/05/16 08:39 Fluticasone Propionate (Flonase) 1 spray TWICE A DAY NASAL 10/04/16 18:00 11/03/16 17:59 10/05/16 09:18 Heparin Sodium (Porcine) (Heparin 5000 units/ml) 5,000 units EVERY 12 HOURS SUBQ 10/04/16 21:00 11/03/16 20:59 10/05/16 08:38 Levothyroxine Sodium (Synthroid) 88 mcg DAILY@0630 ORAL 10/05/16 06:30 11/04/16 06:29 10/05/16 06:05 Megestrol Acetate (Megace) 400 mg TWICE A DAY ORAL 10/04/16 18:00 11/03/16 17:59 10/05/16 08:34 Pantoprazole (Protonix) 40 mg DAILY IV 10/05/16 09:00 11/04/16 08:59 10/05/16 08:35 Patient Own Medication (Patient's Own Med) 1 ea DAILY BOTH EYES 10/05/16 09:00 11/04/16 08:59 10/05/16 08:34 Patient Own Medication (Patient's Own Med) 1 ea DAILY ORAL 10/05/16 09:00 11/04/16 08:59 10/05/16 08:39 Patient Own Medication (Patient's Own Med) 1 ea DAILY ORAL 10/05/16 09:00 11/04/16 08:59 UNV Piperacillin Sod/ Tazobactam Sod/ Dextrose (Zosyn/D5W) 110 ml @ 27.5 mls/hr Q12H IVPB 10/05/16 14:00 10/12/16 13:59 Tamsulosin HCl (Flomax) 0.4 mg BEDTIME ORAL 10/04/16 21:00 11/03/16 20:59 10/04/16 20:27 Height (Feet): 5 Height (Inches): 2.00 Weight (Pounds): 130 General Appearance: lethargic Head: normocephalic Eyes: bilateral anicteric Neck: full range of motion, no mass Respiratory: decreased breath sounds Cardiovascular: regular rate, rhythm, systolic murmur Gastrointestinal: normal bowel sounds, non tender, soft, no mass, no organomegaly, non-distended Musculoskeletal: no calf tenderness Edema: no edema noted Generalized Neurologic: no new focality KERRI GUILLEN Oct 05, 2016 13:12
[2016-10-05] MEDS: Piperacillin/Tazobactam 3.375 GM in D5W 110 ML IVPB SCH (13:32)
--- NOTE | 2016-10-05 14:22 | Cardiology Report ---
APPROVED REPORT EKG Measurement Heart [id number] Sinus tachycardia with premature atrial complexes Nonspecific ST and T wave abnormality Abnormal ECG
[2016-10-05 16:29] VITALS: BP 98/48
[2016-10-05 20:00] VITALS: BP 107/56
[2016-10-05] MEDS: Tamsulosin 0.4mg cap ORAL SCH (21:24)
[2016-10-06] VITALS (12 sets, daily range): BP systolic 95–127; BP diastolic 50–63
[2016-10-06] MEDS: D5 1/2NS 1,000 ML IV SCH (00:36)
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
[2016-10-06] MEDS: Piperacillin/Tazobactam 3.375 GM in D5W 110 ML IVPB SCH ×2 (02:03→13:27)
[2016-10-06 06:45] LABS: INR 1.2 (0.9-1.1); PROTHROMBIN TIME 11.8 SEC (9.30-11.50)
[2016-10-06 06:51] LABS: BASOPHILS % (AUTO) 0.6 % (0.0-2.0); EOSINOPHILS % (AUTO) 1.4 % (0.0-3.0); LYMPHOCYTES % (AUTO) 11.1 % (20.0-45.0); MEAN CORPUSCULAR HEMOGLOBIN 25.2 PG (27.0-31.0); MEAN CORPUSCULAR HGB CONC 31.4 G/DL (32.0-36.0); MEAN CORPUSCULAR VOLUME 80 FL (80-99); MEAN PLATELET VOLUME 7.9 FL (6.5-10.1); MONOCYTES % (AUTO) 8.8 % (1.0-10.0); NEUTROPHILS % (AUTO) 78.1 % (45.0-75.0); PLATELET COUNT 297 K/UL (150-450); RED BLOOD COUNT 3.39 M/UL (4.20-5.40); RED CELL DISTRIBUTION WIDTH 13.8 % (11.6-14.8); WHITE BLOOD COUNT 11.4 K/UL (4.8-10.8)
[2016-10-06] MEDS ORDERED: LR 1000ml ONE (07:00)
[2016-10-06] MEDS ORDERED: Midazolam 2mg/2ml Inj ONE (07:00)
[2016-10-06] MEDS ORDERED: fentaNYL 100 mcg/2 mL IV ONE ×2 (07:00→08:00)
[2016-10-06] MEDS ORDERED: Propofol 10mg/ml 20ml IV ONE ×2 (07:00→08:00)
[2016-10-06 07:20] LABS: ANION GAP 15 (5-15); CALCIUM 7.7 mg/dL (8.6-10.2); CARBON DIOXIDE 22 mEQ/L (20-30); CHLORIDE 116 mEQ/L (98-107); CREATININE 0.8 mg/dL (0.5-0.9); HEMOLYSIS 1; POTASSIUM 3.5 mEQ/L (3.4-4.9); SODIUM 153 mEQ/L (135-145)
--- NOTE | 2016-10-06 08:30 | General Progress Note ---
Assessment/Plan Assessment/Plan Assessment - Poor po - dehydration, hypernatremia - improving - anemia - drop in H&H presumed dilutional - UTI - Azotemia - improved Recommendation - NPO - IVF - Abx - follow labs - PEG today Subjective Allergies: Coded Allergies: NO KNOWN ALLERGIES (Unverified Allergy, Unknown, 03/22/15) Subjective Awake minimally interactive NPO for PEG d/w DTR yesterday re indications/riskd Objective Last 24 Hour Vital Signs Date Time Temp Pulse Resp B/P Pulse Ox O2 Delivery O2 Flow Rate FiO2 10/06/16 04:00 99 10/06/16 04:00 98.8 99 20 113/55 99 Room Air 98 10/06/16 00:00 98.1 92 18 120/52 95 Room Air 95 10/06/16 00:00 94 10/05/16 20:00 100 10/05/16 20:00 97.7 100 20 107/56 94 Nasal Cannula 10/05/16 16:29 97.2 110 20 98/48 93 Room Air 10/05/16 16:00 101 10/05/16 12:00 95 10/05/16 12:00 97.0 95 21 89/46 94 Room Air 10/05/16 08:55 97.7 107 21 102/56 95 Room Air Intake and Output 10/05/16 10/06/16 19:00 07:00 Intake Total 1485.0 ml Output Total 325 ml 800 ml Balance 1160.0 ml -800 ml IV Total 1485.0 ml Output Urine Total 325 ml 800 ml # Voids 1 1 Laboratory Tests 10/05/16 14:00: Activated Partial Thromboplast Time 30 10/06/16 05:25: White Blood Count 11.4H, Red Blood Count 3.39L, Hemoglobin 8.5L, Hematocrit 27.2L, Mean Corpuscular Volume 80, Mean Corpuscular Hemoglobin 25.2L, Mean Corpuscular Hemoglobin Concent 31.4L, Red Cell Distribution Width 13.8, Platelet Count 297, Mean Platelet Volume 7.9, Neutrophils (%) (Auto) 78.1H, Lymphocytes (%) (Auto) 11.1L, Monocytes (%) (Auto) 8.8, Eosinophils (%) (Auto) 1.4, Basophils (%) (Auto) 0.6, Prothrombin Time 11.8H, Prothromb Time International Ratio 1.2H, Sodium Level 153H, Potassium Level 3.5, Chloride Level 116H, Carbon Dioxide Level 22, Anion Gap 15, Blood Urea Nitrogen 24H, Creatinine 0.8, Estimat Glomerular Filtration Rate , Glucose Level 110H, Calcium Level 7.7L, Total Creatine Kinase 277H Height (Feet): 5 Height (Inches): 2.00 Weight (Pounds): 130 Objective Thin elderly WW NCAT supple CTA RRR abd soft ND NT no edema OBS ASHWINI MORRIS October 06, 2016 08:30
--- NOTE | 2016-10-06 08:35 | Anethesia Preoperative Eval ---
Anesthesia Pre-op PMH/ROS General Date of Evaluation: October 06, 2016 Time of Evaluation: 08:31 Anesthesiologist: Briseida ASA Score: ASA 4 Mallampati Score Class I : Soft palate, uvula, fauces, pillars visible Class II: Soft palate, uvula, fauces visible Class III: Soft palate, base of uvula visible Class IV: Only hard plate visible Mallampati Classification: Class III Surgeon: Mckenzie Diagnosis: Dysphagia Surgical Procedure: EGD PEG tub placement Anesthesia History: none Family History: no anesthesia problems Allergies: Coded Allergies: NO KNOWN ALLERGIES (Unverified Allergy, Unknown, 03/22/15) Medications: see eMAR Past Medical History Cardiovascular: Reports: HTN, other - CHF, Denies: CAD, MO, arrhythmia, valve dz Pulmonary: Denies: COPD, VANITA, asthma, other Gastrointestinal/Genitourinary: Reports: GERD Neurologic/Psychiatric: Reports: dementia, depression/anxiety, Denies: CVA, TIA, other Endocrine: Reports: hypothyroidism, Denies: DM, other, steroids HEENT: Reports: cataract (L), cataract (R), Denies: IGIUGIG (L), IGIUGIG (R), glaucoma, other Hematology/Immune: Reports: anemia, Denies: DVT, bleeding disorder, other Musculoskeletal/Integumentary: Reports: DJD, Denies: DDD, OA, RA, edema, other Other: other - malnourished PMH Narrative: as above PSxH Narrative: see chart Anesthesia Pre-op Phys. Exam Physician Exam Last Vital Signs Date Time Temp Pulse Resp B/P Pulse Ox O2 Delivery O2 Flow Rate FiO2 10/06/16 04:00 99 10/06/16 04:00 98.8 20 113/55 99 Room Air 10/05/16 04:14 2.0 Constitutional: NAD Neurologic: other - unable to obtaine Cardiovascular: RRR, no M/R/G Respiratory: CTA Gastrointestinal: S/NT/ND Airway Exam Mallampati Score: Class III MO: limited Neck: stiff ROM: limited Teeth: missing Dentures: no lower, no upper Anesthesia Pre-op A/P Labs Hematology Test 10/06/16 05:25 White Blood Count 11.4 K/UL (4.8-10.8) H Red Blood Count 3.39 M/UL (4.20-5.40) L Hemoglobin 8.5 G/DL (12.0-16.0) L Hematocrit 27.2 % (37.0-47.0) L Mean Corpuscular Volume 80 FL (80-99) Mean Corpuscular Hemoglobin 25.2 PG (27.0-31.0) L Mean Corpuscular Hemoglobin Concent 31.4 G/DL (32.0-36.0) L Red Cell Distribution Width 13.8 % (11.6-14.8) Platelet Count 297 K/UL (150-450) Mean Platelet Volume 7.9 FL (6.5-10.1) Neutrophils (%) (Auto) 78.1 % (45.0-75.0) H Lymphocytes (%) (Auto) 11.1 % (20.0-45.0) L Monocytes (%) (Auto) 8.8 % (1.0-10.0) Eosinophils (%) (Auto) 1.4 % (0.0-3.0) Basophils (%) (Auto) 0.6 % (0.0-2.0) Coagulation Test 10/05/16 14:00 10/06/16 05:25 Activated Partial Thromboplast Time 30 SEC (23-33) Prothrombin Time 11.8 SEC (9.30-11.50) H Prothromb Time International Ratio 1.2 (0.9-1.1) H Chemistry Test 10/06/16 05:25 Sodium Level 153 mEQ/L (135-145) H Potassium Level 3.5 mEQ/L (3.4-4.9) Chloride Level 116 mEQ/L (98-107) H Carbon Dioxide Level 22 mEQ/L (20-30) Anion Gap 15 (5-15) Blood Urea Nitrogen 24 mg/dL (7-23) H Creatinine 0.8 mg/dL (0.5-0.9) Estimat Glomerular Filtration Rate mL/min (>60) Glucose Level 110 mg/dL (74-106) H Calcium Level 7.7 mg/dL (8.6-10.2) L Total Creatine Kinase 277 U/L (26-140) H Risk Assessment & Plan Assessment: ASA 4 Plan: MAC Status Change Before Surgery: ALFRED Andrew M.D. October 06, 2016 08:35
[2016-10-06] MEDS ORDERED: fentaNYL 100 mcg/2 mL IV PRN (08:45)
--- NOTE | 2016-10-06 08:49 | Pre-Procedure Note/Attestation ---
Pre-Procedure Note/Attestation Complete Prior to Procedure Planned Procedure: not applicable Procedure Narrative: esophagogastroduodenoscopy PEG, Indications for Procedure Pre-Operative Diagnosis: dysphagia Attestation I attest that I discussed the nature of the procedure; its benefits; risks and complications; and alternatives (and the risks and benefits of such alternatives ), prior to the procedure, with the patient (or the patient's legal outside industrial sales representative). I attest that, if there was a reasonable possibility of needing a blood transfusion, the patient (or the patient's legal outside industrial sales representative) was given the [facility] standardized written summary, pursuant to the Nick Rajat Blood Safety Act ([place] Health and Safety Code # 1645, as amended). I attest that I re-evaluated the patient just prior to the surgery and that there has been no change in the patient's H&P, except as documented below: ASHWINI MORRIS October 06, 2016 08:49
[2016-10-06] MEDS: DULoxetine 30mg cap ORAL SCH ×2 (09:00→16:21)
[2016-10-06] MEDS: Docusate 100mg tablet ORAL SCH (09:00)
[2016-10-06] MEDS: Megace 400mg/10ml Susp ORAL SCH (09:00)
[2016-10-06] MEDS: Pantoprazole Inj IV SCH (09:00)
[2016-10-06] MEDS: Flonase Nasal Inhaler 16gm NASAL SCH ×2 (09:00→18:13)
[2016-10-06] MEDS: Heparin 5000 units/ml inj SUBQ SCH ×2 (09:00→21:57)
[2016-10-06] MEDS: ALCAFTADINE BOTH EYES SCH (09:00)
[2016-10-06] MEDS: Nuedexta Capsule 20/10mg ORAL SCH (09:00)
[2016-10-06] MEDS: Benazepril 10mg tab ORAL SCH (09:00)
[2016-10-06] MEDS: NUPLAZID 17 MG ORAL SCH (09:00)
--- NOTE | 2016-10-06 10:56 | Endoscopy Procedure Note ---
Endoscopy Procedure Note Indication for Procedure: dysphagia Operative Findings/Diagnosis: PEG Specimen: none Pt Tolerated Procedure Well: Yes Estimated Blood Loss: minimal Anesthesiologist: see report Anesthesia: moderate sedation Medication Given: fentanyl, see anesthesia record Implant(s) used?: No 50 yrs or older w/o bx or poly: Not Applicable 10yrs. F/U not recommended: Not Applicable If not recommended, why?: ASHWINI MORRIS October 06, 2016 10:56
--- NOTE | 2016-10-06 10:57 | Brief Operative Note ---
Immediate Post Operative Note Operative Note Chief Complaint: dysphagia Pre-op Diagnosis: dysphagia Procedure: EGD/PEG Post-op Diagnosis: Dysphagia Surgeon: liza Anesthesiologist: see report Anesthesia: MAC Specimen: none Complications: none Condition: stable Estimated Blood Loss: minimal Drains: none Implant(s) used?: No ASHWINI MORRIS October 06, 2016 10:57
--- NOTE | 2016-10-06 10:59 | Immediate Post-Op Evaluation ---
Immediate Post-Op Evalulation Immediate Post-Op Evalulation Procedure: EGD PEG tube placement Date of Evaluation: October 06, 2016 Time of Evaluation: 09:24 IV Fluids: 400 Blood Products: none Estimated Blood Loss: min Urinary Output: none Blood Pressure Systolic: 116 Blood Pressure Diastolic: 62 Pulse Rate: 89 Respiratory Rate: 24 O2 Sat by Pulse Oximetry: 98 Temperature (Fahrenheit): 97.6 Pain Score (1-10): 2 Nausea: No Vomiting: No Complications none Patient Status: reacts, patent, none Hydration Status: adequate ALFRED ORTEGA M.D. October 06, 2016 10:59
--- NOTE | 2016-10-06 11:01 | 48 Hour Post Anesthesia Eval ---
Post Anesthesia Evaluation Procedure: EGD PEG tube placement Date of Evaluation: October 06, 2016 Time of Evaluation: 10:59 Blood Pressure Systolic: 108 0: 65 Pulse Rate: 86 Respiratory Rate: 22 Temperature (Fahrenheit): 97.3 O2 Sat by Pulse Oximetry: 98 Airway: patent Nausea: No Vomiting: No Pain Intensity: 1 Hydration Status: adequate Cardiopulmonary Status: stable Mental Status/LOC: patient returned to baseline Follow-up Care/Observations: n/a Post-Anesthesia Complications: none Follow-up care needed: N/A ALFRED ORTEGA M.D. October 06, 2016 11:00
[2016-10-06] MEDS: D5W w/KCl 20mEq 1,000 ML IV SCH ×2 (13:27→23:30)
--- NOTE | 2016-10-06 14:12 | Wound Care Consultation ---
Wound Assessment Wound Assessment #1: Wound Present on Admission: Yes New Wound: No Status Change of Wound: No Wound Location Body Site Modif: right Wound Location Body Site: trochanter Wound Type: pressure ulcer Yasir Test: Does not Yasir Pressure Ulcer Stage: deep tissue injury Wound Thickness: Full Thickness Wound Length: 10.0 Wound Width: 6.5 Wound Depth: utd Percent of Wound Purple/Maroon: 100 Wound Drainage Amount: None Wound Drainage Odor: None/Absent Tissue Surrounding Wound: Erythemic Wound General Appearance: Reddened Wound Assessment #2: Wound Number: #2 Wound Present on Admission: Yes New Wound: No Status Change of Wound: No Wound Location Body Site Modif: mid Wound Location Body Site: sacral Wound Type: pressure ulcer Yasir Test: Does not Yasir Pressure Ulcer Stage: IV/unstageable Wound Thickness: Full Thickness Wound Length: 10.0 Wound Width: 7.5 Wound Depth: utd Percent of Wound [place]/Red: 30 Percent of Wound Bed Yellow/Wh: 20 Percent of Wound Purple/Maroon: 50 Wound Drainage Description: Serosanguineous Wound Drainage Amount: Moderate Wound Drainage Odor: None/Absent Tissue Surrounding Wound: Macerated Wound General Appearance: Reddened, Draining Wound Assessment #3: Wound Number: #3 Wound Present on Admission: Yes New Wound: No Status Change of Wound: No Wound Location Body Site Modif: left Wound Location Body Site: heel Wound Type: pressure ulcer Yasir Test: Does not Yasir Pressure Ulcer Stage: I Wound Length: 4.0 Wound Width: 4.0 Wound Depth: utd Percent of Wound [place]/Red: 100 Wound Drainage Amount: None Wound Drainage Odor: None/Absent Tissue Surrounding Wound: Erythemic Wound General Appearance: Reddened Wound Assessment #4: Wound Number: #4 Wound Present on Admission: Yes New Wound: No Status Change of Wound: No Wound Location Body Site Modif: right Wound Location Body Site: heel Wound Type: pressure ulcer Yasir Test: Does not Yasir Pressure Ulcer Stage: deep tissue injury Wound Thickness: Full Thickness Wound Length: 4.0 Wound Width: 4.0 Wound Depth: utd Percent of Wound Purple/Maroon: 100 Wound Drainage Amount: None Wound Drainage Odor: None/Absent Tissue Surrounding Wound: Erythemic Wound General Appearance: Reddened Wound Assessment #5: Wound Number: #5 Wound Present on Admission: Yes New Wound: No Status Change of Wound: No Wound Location Body Site: perineal area Wound Type: rash Yasir Test: Does not Yasir Rashes: Jennifer w/erosion Percent of Wound [place]/Red: 100 Wound Drainage Amount: None Wound Drainage Odor: None/Absent Tissue Surrounding Wound: Erythemic Wound General Appearance: Reddened, Open to air Wound Assessment #6: Wound Number: #6 Wound Present on Admission: Yes New Wound: No Status Change of Wound: No Wound Location Body Site Modif: right Wound Location Body Site: foot Wound Type: pressure ulcer Yasir Test: Does not Yasir Pressure Ulcer Stage: deep tissue injury Wound Thickness: Full Thickness Wound Length: 1.0 Wound Width: 1.0 Wound Depth: utd Percent of Wound Purple/Maroon: 100 Wound Drainage Amount: None Wound Drainage Odor: None/Absent Tissue Surrounding Wound: Erythemic Wound General Appearance: Asymptomatic, Reddened Wound Assessment #7: Wound Number: #7 Wound Present on Admission: Yes New Wound: No Status Change of Wound: No Wound Location Body Site Modif: right Wound Location Body Site: malleolus/ankle Wound Type: pressure ulcer Yasir Test: Does not Yasir Pressure Ulcer Stage: deep tissue injury Wound Thickness: Full Thickness Wound Length: 0.5 Wound Width: 0.5 Wound Depth: utd Percent of Wound Purple/Maroon: 100 Wound Drainage Amount: None Wound Drainage Odor: None/Absent Tissue Surrounding Wound: Erythemic Wound General Appearance: Asymptomatic, Reddened Wound Comment #1 Sacral Stage IV/unstageable pressure ulcer #2 Fungal rashes on perineal area #3 Left heel stage I pressure ulcer #4 Right heel DTI pressure ulcer #5 Right DTI pressure ulcer #6 Right malleolus DTI pressure ulcer #7 Right mid foot DTI pressure ulcer Recommendation -Sacral pressure ulcer Cleanse with saline, pat dry, apply Triad cream, cover with bordered Gauze daily and PRN soiled/dislodged -Local wound care per protocol for DTIs and stage I pressure ulcer -Keep clean and dry -Turn and reposition -Optimize nutrition -Offload both heels -Heel protector on both heels -Assess and f/u accordingly for any changes KIM TOLEDO RN October 06, 2016 14:12
--- NOTE | 2016-10-06 14:15 | Geriatric Progress Note ---
Assessment/Plan Problems: (1) Sacral decubitus ulcer, stage III (2) DEAN (acute kidney injury) (3) Sepsis (4) UTI (urinary tract infection) (5) Hypernatremia (6) Anxiety with somatization (7) Mitral regurgitation and aortic stenosis (8) Altered mental status (9) Chronic pain syndrome (10) Depression (11) Blindness (12) Vascular dementia (13) Volume depletion Assessment/Plan Azotemia improved with hydration. CK decreased. Hct stable. Continue hydration. Unclear if patient primarily experiencing encephalopathy postprocedure vs. actual pain. Suspect former given less coherent response, but will give hydroxycodone briefly. Sxs may also be more apparent due to NPO status omitting am meds. Urine growing ESBL E coli. Will convert to IV gent, and GT nitrofurantoin to narrow spectrum. GTF to begin per Dr. Ledezma. If stable, d/c planning to SNF for rehab. Discussed with: family, hospital staff Subjective Interval Events Patient s/p PEG placement. Dtr concerned re pain control. Patient less responsive than yesterday, may be c/o pain, speaking mainly in Vietnamese. Does not localize sxs in response. HR reported up to 120. Subjective Unable to elicit detailed responses. Geriatric Geriatric Last 24 Hour Vital Signs Date Time Temp Pulse Resp B/P Pulse Ox O2 Delivery O2 Flow Rate FiO2 10/06/16 11:33 98.4 100 20 105/60 94 Room Air 10/06/16 11:00 86 22 98 10/06/16 10:59 89 24 98 10/06/16 09:53 86 20 127/63 97 Room Air 10/06/16 09:50 77 20 127/59 96 Room Air 10/06/16 09:45 80 20 118/62 98 Nasal Cannula 2.0 10/06/16 09:30 85 20 112/54 98 Nasal Cannula 2.0 10/06/16 09:25 84 20 121/54 98 Nasal Cannula 2.0 10/06/16 09:20 97.1 82 20 117/61 98 Nasal Cannula 2.0 10/06/16 08:00 98.1 97 20 125/60 97 Room Air 10/06/16 08:00 97 10/06/16 04:00 99 10/06/16 04:00 98.8 99 20 113/55 99 Room Air 98 10/06/16 00:00 98.1 92 18 120/52 95 Room Air 95 10/06/16 00:00 94 10/05/16 20:00 100 10/05/16 20:00 97.7 100 20 107/56 94 Nasal Cannula 10/05/16 16:29 97.2 110 20 98/48 93 Room Air 10/05/16 16:00 101 Intake and Output 10/05/16 10/06/16 19:00 07:00 Intake Total 1485.0 ml Output Total 325 ml 800 ml Balance 1160.0 ml -800 ml IV Total 1485.0 ml Output Urine Total 325 ml 800 ml # Voids 1 1 Laboratory Tests Test 10/06/16 05:25 White Blood Count 11.4 K/UL (4.8-10.8) H Red Blood Count 3.39 M/UL (4.20-5.40) L Hemoglobin 8.5 G/DL (12.0-16.0) L Hematocrit 27.2 % (37.0-47.0) L Mean Corpuscular Volume 80 FL (80-99) Mean Corpuscular Hemoglobin 25.2 PG (27.0-31.0) L Mean Corpuscular Hemoglobin Concent 31.4 G/DL (32.0-36.0) L Red Cell Distribution Width 13.8 % (11.6-14.8) Platelet Count 297 K/UL (150-450) Mean Platelet Volume 7.9 FL (6.5-10.1) Neutrophils (%) (Auto) 78.1 % (45.0-75.0) H Lymphocytes (%) (Auto) 11.1 % (20.0-45.0) L Monocytes (%) (Auto) 8.8 % (1.0-10.0) Eosinophils (%) (Auto) 1.4 % (0.0-3.0) Basophils (%) (Auto) 0.6 % (0.0-2.0) Prothrombin Time 11.8 SEC (9.30-11.50) H Prothromb Time International Ratio 1.2 (0.9-1.1) H Sodium Level 153 mEQ/L (135-145) H Potassium Level 3.5 mEQ/L (3.4-4.9) Chloride Level 116 mEQ/L (98-107) H Carbon Dioxide Level 22 mEQ/L (20-30) Anion Gap 15 (5-15) Blood Urea Nitrogen 24 mg/dL (7-23) H Creatinine 0.8 mg/dL (0.5-0.9) Estimat Glomerular Filtration Rate mL/min (>60) Glucose Level 110 mg/dL (74-106) H Calcium Level 7.7 mg/dL (8.6-10.2) L Total Creatine Kinase 277 U/L (26-140) H Current Medications Medications (Trade) Dose Ordered Sig/Patricia Route PRN Reason Start Time Stop Time Status Last Admin Dose Admin Acetaminophen (Tylenol) 650 mg Q4H PRN ORAL Mild Pain (Pain Scale 1-3) 10/04/16 16:00 11/03/16 15:59 10/06/16 13:29 Acetaminophen (Tylenol) 650 mg Q4H PRN ORAL T>100.5 10/04/16 16:00 11/03/16 15:59 Acetaminophen (Tylenol) 650 mg Q4H PRN RECTAL Mild Pain (Pain Scale 1-3) 10/04/16 16:00 11/03/16 15:59 Acetaminophen (Tylenol) 650 mg Q4H PRN RECTAL T>100.5 10/04/16 16:00 11/03/16 15:59 Benazepril HCl (Lotensin) 20 mg DAILY ORAL 10/05/16 09:00 11/04/16 08:59 Clotrimazole 1 applic 1 applic THREE TIMES A DAY TOPIC 10/04/16 18:00 11/03/16 17:59 10/06/16 12:33 Dextromethorphan/ Quinidine (Nuedexta Capsule) 1 cap Q12HR ORAL 10/04/16 21:00 11/03/16 20:59 10/05/16 21:25 Dextrose (Dextrose 50%) STAT PRN IV Hypoglycemia 10/04/16 16:30 11/03/16 16:29 Dextrose/ Electrolytes (D5W w/KCl 20mEq) 1,000 ml @ 100 mls/hr Q10H IV 10/06/16 13:30 11/05/16 13:29 10/06/16 13:27 Docusate Sodium (Colace) 100 mg Q12HR ORAL 10/06/16 21:00 11/05/16 20:59 Duloxetine HCl (Cymbalta) 30 mg DAILY ORAL 10/05/16 09:00 11/04/16 08:59 10/05/16 08:39 Fluticasone Propionate (Flonase) 1 spray TWICE A DAY NASAL 10/04/16 18:00 11/03/16 17:59 10/05/16 17:39 Heparin Sodium (Porcine) (Heparin 5000 units/ml) 5,000 units EVERY 12 HOURS SUBQ 10/04/16 21:00 11/03/16 20:59 10/05/16 08:38 Latanoprost 1 drop 1 drop BEDTIME BOTH EYES 10/05/16 21:00 11/04/16 20:59 10/05/16 21:24 Levothyroxine Sodium (Synthroid) 88 mcg DAILY@0630 ORAL 10/05/16 06:30 11/04/16 06:29 10/05/16 06:05 Megestrol Acetate (Megace) 400 mg TWICE A DAY ORAL 10/04/16 18:00 11/03/16 17:59 10/05/16 17:39 Pantoprazole (Protonix) 40 mg DAILY IV 10/05/16 09:00 11/04/16 08:59 10/05/16 08:35 Patient Own Medication (Patient's Own Med) 1 ea DAILY BOTH EYES 10/05/16 09:00 11/04/16 08:59 10/05/16 08:34 Patient Own Medication (Patient's Own Med) 1 ea DAILY ORAL 10/05/16 09:00 11/04/16 08:59 10/05/16 08:39 Piperacillin Sod/ Tazobactam Sod/ Dextrose (Zosyn/D5W) 110 ml @ 27.5 mls/hr Q12H IVPB 10/05/16 14:00 10/12/16 13:59 10/06/16 13:27 Tamsulosin HCl (Flomax) 0.4 mg BEDTIME ORAL 10/04/16 21:00 11/03/16 20:59 10/05/16 21:24 Height (Feet): 5 Height (Inches): 2.00 Weight (Pounds): 130 General Appearance: lethargic Head: normocephalic, atraumatic Eyes: bilateral anicteric Neck: other - increased cervical tone. Respiratory: decreased breath sounds Cardiovascular: regular rate, rhythm, systolic murmur Gastrointestinal: normal bowel sounds, soft, no mass, no organomegaly, non- distended, tenderness - directly over PEG site, no guarding. Musculoskeletal: no calf tenderness Edema: no edema noted Generalized Neurologic: no new focality KERRI GUILLEN October 06, 2016 14:15
[2016-10-06] MEDS ORDERED: Norco 5mg/325mg tab ORAL PRN (14:30)
[2016-10-06] MEDS ORDERED: Gentamicin 100mg/50ml Premix 50 ML IVPB SCH (16:00)
[2016-10-06] MEDS: Gentamicin 120mg/100ml NS INJ 100 ML IVPB SCH (16:21)
[2016-10-06] MEDS ORDERED: Nitrofurantoin 50mg cap GT SCH (18:00)
[2016-10-06] MEDS: Megace 400mg/10ml Susp GT SCH (18:13)
--- NOTE | 2016-10-06 19:09 | Cardiology Progress Note ---
Assessment/Plan Assessment/Plan [id number] Objective Last 24 Hour Vital Signs Date Time Temp Pulse Resp B/P Pulse Ox O2 Delivery O2 Flow Rate FiO2 10/06/16 15:42 97.5 105 20 121/63 94 Room Air 10/06/16 12:00 120 10/06/16 11:33 98.4 100 20 105/60 94 Room Air 10/06/16 11:00 86 22 98 10/06/16 10:59 89 24 98 10/06/16 09:53 86 20 127/63 97 Room Air 10/06/16 09:50 77 20 127/59 96 Room Air 10/06/16 09:45 80 20 118/62 98 Nasal Cannula 2.0 10/06/16 09:30 85 20 112/54 98 Nasal Cannula 2.0 10/06/16 09:25 84 20 121/54 98 Nasal Cannula 2.0 10/06/16 09:20 97.1 82 20 117/61 98 Nasal Cannula 2.0 10/06/16 08:00 98.1 97 20 125/60 97 Room Air 10/06/16 08:00 97 10/06/16 04:00 99 10/06/16 04:00 98.8 99 20 113/55 99 Room Air 98 10/06/16 00:00 98.1 92 18 120/52 95 Room Air 95 10/06/16 00:00 94 10/05/16 20:00 100 10/05/16 20:00 97.7 100 20 107/56 94 Nasal Cannula Intake and Output 10/05/16 10/06/16 19:00 07:00 Intake Total 1485.0 ml Output Total 325 ml 800 ml Balance 1160.0 ml -800 ml IV Total 1485.0 ml Output Urine Total 325 ml 800 ml # Voids 1 1 Laboratory Tests Test 10/06/16 05:25 White Blood Count 11.4 K/UL (4.8-10.8) H Red Blood Count 3.39 M/UL (4.20-5.40) L Hemoglobin 8.5 G/DL (12.0-16.0) L Hematocrit 27.2 % (37.0-47.0) L Mean Corpuscular Volume 80 FL (80-99) Mean Corpuscular Hemoglobin 25.2 PG (27.0-31.0) L Mean Corpuscular Hemoglobin Concent 31.4 G/DL (32.0-36.0) L Red Cell Distribution Width 13.8 % (11.6-14.8) Platelet Count 297 K/UL (150-450) Mean Platelet Volume 7.9 FL (6.5-10.1) Neutrophils (%) (Auto) 78.1 % (45.0-75.0) H Lymphocytes (%) (Auto) 11.1 % (20.0-45.0) L Monocytes (%) (Auto) 8.8 % (1.0-10.0) Eosinophils (%) (Auto) 1.4 % (0.0-3.0) Basophils (%) (Auto) 0.6 % (0.0-2.0) Prothrombin Time 11.8 SEC (9.30-11.50) H Prothromb Time International Ratio 1.2 (0.9-1.1) H Sodium Level 153 mEQ/L (135-145) H Potassium Level 3.5 mEQ/L (3.4-4.9) Chloride Level 116 mEQ/L (98-107) H Carbon Dioxide Level 22 mEQ/L (20-30) Anion Gap 15 (5-15) Blood Urea Nitrogen 24 mg/dL (7-23) H Creatinine 0.8 mg/dL (0.5-0.9) Estimat Glomerular Filtration Rate mL/min (>60) Glucose Level 110 mg/dL (74-106) H Calcium Level 7.7 mg/dL (8.6-10.2) L Total Creatine Kinase 277 U/L (26-140) H Microbiology Date/Time Source Procedure Growth Status 10/04/16 12:00 Blood Blood Culture - Preliminary NO GROWTH AFTER 24 HOURS Resulted 10/04/16 10:54 Blood Blood Culture - Preliminary NO GROWTH AFTER 24 HOURS Resulted 10/04/16 10:54 Nasal Nares MRSA Culture - Final NO METHICILLIN RESISTANT STAPH AUREUS... Complete 10/04/16 11:23 Urine,Clean Catch Urine Culture - Final Escherichia Coli - Esbl Complete 10/04/16 10:54 Rectum VRE Culture - Final NO VANCOMYCIN RESISTANT ENTEROCOCCUS ... Complete FRANCIS VELEZ October 06, 2016 19:09
[2016-10-06] MEDS ORDERED: Nuedexta Capsule 20/10mg GT SCH (21:00)
[2016-10-06] MEDS: Nuedexta Capsule 20/10mg GT SCH (21:51)
[2016-10-06] MEDS: Tamsulosin 0.4mg cap ORAL SCH (21:51)
[2016-10-06] MEDS: Nitrofurantoin 50mg cap GT SCH (21:51)
[2016-10-06] MEDS: Docusate 100mg cap ORAL SCH (21:51)
[2016-10-07] VITALS: BP 97/53
[2016-10-07 04:00] VITALS: BP 101/53
[2016-10-07] MEDS: D5W w/KCl 20mEq 1,000 ML IV SCH ×3 (04:08→21:58)
[2016-10-07 07:53] LABS: BASOPHILS % (AUTO) 0.4 % (0.0-2.0); EOSINOPHILS % (AUTO) 1.3 % (0.0-3.0); LYMPHOCYTES % (AUTO) 13.3 % (20.0-45.0); MEAN CORPUSCULAR HEMOGLOBIN 24.8 PG (27.0-31.0); MEAN CORPUSCULAR HGB CONC 31.6 G/DL (32.0-36.0); MEAN CORPUSCULAR VOLUME 78 FL (80-99); MEAN PLATELET VOLUME 7.2 FL (6.5-10.1); MONOCYTES % (AUTO) 6.3 % (1.0-10.0); NEUTROPHILS % (AUTO) 78.7 % (45.0-75.0); PLATELET COUNT 307 K/UL (150-450); RED BLOOD COUNT 3.62 M/UL (4.20-5.40); RED CELL DISTRIBUTION WIDTH 13.9 % (11.6-14.8); WHITE BLOOD COUNT 11.1 K/UL (4.8-10.8)
--- NOTE | 2016-10-07 07:58 | Consultation ---
DATE OF CONSULTATION: CARDIOLOGY CONSULTATION ATTENDING PHYSICIAN: Alexey Stanley M.D. REASON FOR REFERRAL: Aortic stenosis and mitral regurgitation. HISTORY OF PRESENT ILLNESS: The patient is an elderly female, who is not able to provide any meaningful history whatsoever, information is obtained from the patient's chart. The patient was admitted to the hospital because of poor intake and volume depletion, and change in mentation. The patient was supposed to have subsequently undergone placement of G-tube for feeding purposes. The patient remained uncommunicative but responsive, but not able to provide any meaningful history whatsoever. PAST MEDICAL HISTORY: Extensive and positive for history of chronic cognitive dysfunction, encephalopathy, chronic pain syndrome, depression, hypothyroidism, hypertension, hyperlipidemia, sleep apnea, severe aortic stenosis, significant mitral regurgitation, osteoporosis, compression fracture and right femoral shaft fracture, adhesive capsulitis, pelvic floor fracture, gastroesophageal reflux disease, , glaucoma, generalized weakness, wheelchair and bedbound status post ambulation, recurrent urinary tract infection, anorexia, and dysphagia. ALLERGIES: There is no known drug allergies. SOCIAL HISTORY: She was born in . She lives with her daughter. There is no history of smoking or alcohol. REVIEW OF SYSTEMS: Really unable to obtain. FAMILY HISTORY: Five brothers and two sisters. PHYSICAL EXAMINATION: GENERAL: The patient shows to be elderly female, in no respiratory distress. HEENT: Unremarkable. Carotid upstroke is somewhat delayed. LUNGS: Crackles noted in the left base. CARDIAC: Regular rhythm. Systolic ejection murmur. ABDOMEN: Soft with a G-tube in place. Dressing in place. EXTREMITIES: There is no edema. NEUROLOGIC: Alert and responsive, but not communicative or follows any significant commands. LABORATORY AND DIAGNOSTIC DATA: White count of 11.4, hemoglobin 8.5, and platelet count of 297,000. There is sodium of 153, potassium 3.5, chloride 160, bicarbonate 22, BUN 24, creatinine 0.8, and glucose of 110, lactic acid of 7.7, and total CK of 277. INR is 1.2. Urinalysis has 10 to 15 WBCs. A chest x-ray performed at the time of admission shows no acute processes. Her telemetry data shows sinus rhythm and sinus tachycardia. No significant arrhythmias and no bradycardia is noted. The electrocardiogram shows sinus rhythm, normal QRS axis, some nonspecific ST and T-wave changes. ASSESSMENT AND PLAN: 1. Poor p.o. intake. 2. Aortic stenosis and mitral regurgitation. 3. History of recurrent urinary tract infection. Dr. Stanley, this patient was seen in cardiac consultation. Of note, the patient is a very poor historian. In light of the fact that the patient has poor p.o. intake, I think it is reasonable for her to proceed in the direction of having a percutaneous endoscopic gastrostomy placed, although aortic stenosis risk from endoscopy would be minimal and acceptable and probably will be tolerated. Young Sorenson M.D. DR: Polly JOB#: [id number] CC:
[2016-10-07 08:01] VITALS: BP 114/55
[2016-10-07 08:08] LABS: ANION GAP 14 (5-15); CALCIUM 7.6 mg/dL (8.6-10.2); CARBON DIOXIDE 21 mEQ/L (20-30); CHLORIDE 107 mEQ/L (98-107); CREATININE 0.7 mg/dL (0.5-0.9); HEMOLYSIS 0; SODIUM 142 mEQ/L (135-145)
[2016-10-07] MEDS ORDERED: DULoxetine 30mg cap ORAL SCH (09:00)
[2016-10-07] MEDS: Heparin 5000 units/ml inj SUBQ SCH ×2 (09:00→20:45)
[2016-10-07] MEDS: ALCAFTADINE BOTH EYES SCH (09:00)
[2016-10-07] MEDS: Pantoprazole Inj IV SCH (09:00)
[2016-10-07] MEDS: Megace 400mg/10ml Susp GT SCH ×2 (09:00→18:00)
[2016-10-07] MEDS: NUPLAZID 17 MG ORAL SCH ×3 (09:59→10:37)
[2016-10-07] MEDS: Flonase Nasal Inhaler 16gm NASAL SCH ×2 (10:00→10:42)
[2016-10-07] MEDS: Nitrofurantoin 50mg cap GT SCH ×2 (10:24→20:47)
[2016-10-07] MEDS: Docusate 100mg cap ORAL SCH ×2 (10:24→17:25)
[2016-10-07] MEDS: Benazepril 10mg tab ORAL SCH (10:29)
[2016-10-07] MEDS: Nuedexta Capsule 20/10mg GT SCH ×2 (10:51→20:45)
--- NOTE | 2016-10-07 11:30 | Cardiology Progress Note ---
Assessment/Plan Assessment/Plan 1. Poor p.o. intake. 2. Aortic stenosis and mitral regurgitation. 3. History of recurrent urinary tract infection 4. hypernatremia doing well tele reviewed sinsu ok to dc tele doing ok na is better Subjective ROS Limited/Unobtainable: Yes Cardiovascular: Reports: chest pain Subjective not communicative Objective Last 24 Hour Vital Signs Date Time Temp Pulse Resp B/P Pulse Ox O2 Delivery O2 Flow Rate FiO2 10/07/16 10:29 114/55 10/07/16 08:01 97.7 105 20 114/55 97 Room Air 10/07/16 04:00 98.0 101 19 101/53 94 Room Air 10/07/16 04:00 112 10/07/16 00:00 97.8 92 20 97/53 97 Room Air 10/07/16 00:00 87 10/06/16 20:00 97.9 105 21 95/50 94 Room Air 10/06/16 20:00 102 10/06/16 16:00 92 10/06/16 15:42 97.5 105 20 121/63 94 Room Air 10/06/16 12:00 120 10/06/16 11:33 98.4 100 20 105/60 94 Room Air General Appearance: no apparent distress Neck: supple Cardiovascular: normal rate, regular rhythm, systolic murmur Respiratory/Chest: lungs clear, normal breath sounds Abdomen: normal bowel sounds, soft Extremities: no swelling Intake and Output 10/06/16 10/07/16 19:00 07:00 Intake Total 1300 ml 700 ml Output Total 400 ml 500 ml Balance 900 ml 200 ml IV Total 1300 ml 700 ml Output Urine Total 400 ml 500 ml Laboratory Tests Test 10/07/16 07:05 White Blood Count 11.1 K/UL (4.8-10.8) H Red Blood Count 3.62 M/UL (4.20-5.40) L Hemoglobin 9.0 G/DL (12.0-16.0) L Hematocrit 28.4 % (37.0-47.0) L Mean Corpuscular Volume 78 FL (80-99) L Mean Corpuscular Hemoglobin 24.8 PG (27.0-31.0) L Mean Corpuscular Hemoglobin Concent 31.6 G/DL (32.0-36.0) L Red Cell Distribution Width 13.9 % (11.6-14.8) Platelet Count 307 K/UL (150-450) Mean Platelet Volume 7.2 FL (6.5-10.1) Neutrophils (%) (Auto) 78.7 % (45.0-75.0) H Lymphocytes (%) (Auto) 13.3 % (20.0-45.0) L Monocytes (%) (Auto) 6.3 % (1.0-10.0) Eosinophils (%) (Auto) 1.3 % (0.0-3.0) Basophils (%) (Auto) 0.4 % (0.0-2.0) Sodium Level 142 mEQ/L (135-145) Potassium Level 4.0 mEQ/L (3.4-4.9) Chloride Level 107 mEQ/L (98-107) Carbon Dioxide Level 21 mEQ/L (20-30) Anion Gap 14 (5-15) Blood Urea Nitrogen 15 mg/dL (7-23) Creatinine 0.7 mg/dL (0.5-0.9) Estimat Glomerular Filtration Rate mL/min (>60) Glucose Level 103 mg/dL (74-106) Calcium Level 7.6 mg/dL (8.6-10.2) L Microbiology Date/Time Source Procedure Growth Status 10/04/16 12:00 Blood Blood Culture - Preliminary NO GROWTH AFTER 48 HOURS Resulted FRANCIS VELEZ October 07, 2016 11:30
[2016-10-07 11:59] VITALS: BP 127/83
--- NOTE | 2016-10-07 15:40 | Geriatric Progress Note ---
Assessment/Plan Problems: (1) Sacral decubitus ulcer, stage III (2) DEAN (acute kidney injury) (3) Sepsis (4) UTI (urinary tract infection) (5) Hypernatremia (6) Anxiety with somatization (7) Mitral regurgitation and aortic stenosis (8) Altered mental status (9) Chronic pain syndrome (10) Depression (11) Blindness (12) Vascular dementia (13) Volume depletion Assessment/Plan Patient now stabilizing with correction of electrolyte abnormalities. Await initiation of feedings per Dr. Ledezma, if tolerated expect d/c to SNF. Continue Cefazolin for UTI. Behavior adequately controlled on present regimen. OK to go off tele. Discussed with: patient Subjective Interval Events Patient in bed, muted responses. No overt discomfort. Per staff medicated with [place] x 1 today. Per labs, hypernatremia and azotemia normalizing. GTF not initiated as yet. Subjective Unable to elicit detailed responses. Geriatric Geriatric Last 24 Hour Vital Signs Date Time Temp Pulse Resp B/P Pulse Ox O2 Delivery O2 Flow Rate FiO2 10/07/16 11:59 97.7 105 20 127/83 95 Room Air 10/07/16 10:29 114/55 10/07/16 08:01 97.7 105 20 114/55 97 Room Air 10/07/16 04:00 98.0 101 19 101/53 94 Room Air 10/07/16 04:00 112 10/07/16 00:00 97.8 92 20 97/53 97 Room Air 10/07/16 00:00 87 10/06/16 20:00 97.9 105 21 95/50 94 Room Air 10/06/16 20:00 102 10/06/16 16:00 92 10/06/16 15:42 97.5 105 20 121/63 94 Room Air Intake and Output 10/06/16 10/07/16 19:00 07:00 Intake Total 1300 ml 700 ml Output Total 400 ml 500 ml Balance 900 ml 200 ml IV Total 1300 ml 700 ml Output Urine Total 400 ml 500 ml Laboratory Tests Test 10/07/16 07:05 White Blood Count 11.1 K/UL (4.8-10.8) H Red Blood Count 3.62 M/UL (4.20-5.40) L Hemoglobin 9.0 G/DL (12.0-16.0) L Hematocrit 28.4 % (37.0-47.0) L Mean Corpuscular Volume 78 FL (80-99) L Mean Corpuscular Hemoglobin 24.8 PG (27.0-31.0) L Mean Corpuscular Hemoglobin Concent 31.6 G/DL (32.0-36.0) L Red Cell Distribution Width 13.9 % (11.6-14.8) Platelet Count 307 K/UL (150-450) Mean Platelet Volume 7.2 FL (6.5-10.1) Neutrophils (%) (Auto) 78.7 % (45.0-75.0) H Lymphocytes (%) (Auto) 13.3 % (20.0-45.0) L Monocytes (%) (Auto) 6.3 % (1.0-10.0) Eosinophils (%) (Auto) 1.3 % (0.0-3.0) Basophils (%) (Auto) 0.4 % (0.0-2.0) Sodium Level 142 mEQ/L (135-145) Potassium Level 4.0 mEQ/L (3.4-4.9) Chloride Level 107 mEQ/L (98-107) Carbon Dioxide Level 21 mEQ/L (20-30) Anion Gap 14 (5-15) Blood Urea Nitrogen 15 mg/dL (7-23) Creatinine 0.7 mg/dL (0.5-0.9) Estimat Glomerular Filtration Rate mL/min (>60) Glucose Level 103 mg/dL (74-106) Calcium Level 7.6 mg/dL (8.6-10.2) L Current Medications Medications (Trade) Dose Ordered Sig/Patricia Route PRN Reason Start Time Stop Time Status Last Admin Dose Admin Acetaminophen (Tylenol) 650 mg Q4H PRN ORAL Mild Pain (Pain Scale 1-3) 10/04/16 16:00 11/03/16 15:59 10/06/16 13:29 Acetaminophen (Tylenol) 650 mg Q4H PRN ORAL T>100.5 10/04/16 16:00 11/03/16 15:59 Acetaminophen (Tylenol) 650 mg Q4H PRN RECTAL Mild Pain (Pain Scale 1-3) 10/04/16 16:00 11/03/16 15:59 Acetaminophen (Tylenol) 650 mg Q4H PRN RECTAL T>100.5 10/04/16 16:00 11/03/16 15:59 Acetaminophen/ Hydrocodone Bitart ([place] 5/325) 1 tab Q6H PRN GT PAIN 4-10 10/06/16 15:00 10/13/16 14:59 Benazepril HCl (Lotensin) 20 mg DAILY ORAL 10/05/16 09:00 11/04/16 08:59 10/07/16 10:29 Clotrimazole 1 applic 1 applic EVERY 12 HOURS TOPIC 10/06/16 21:00 11/05/16 20:59 10/07/16 10:00 Dextromethorphan/ Quinidine (Nuedexta Capsule) 1 cap Q12HR GT 10/06/16 21:00 11/05/16 20:59 10/07/16 10:51 Dextrose (Dextrose 50%) STAT PRN IV Hypoglycemia 10/04/16 16:30 11/03/16 16:29 Dextrose/ Electrolytes (D5W w/KCl 20mEq) 1,000 ml @ 100 mls/hr Q10H IV 10/06/16 13:30 11/05/16 13:29 10/07/16 04:08 Docusate Sodium (Colace) 100 mg Q12HR ORAL 10/06/16 21:00 11/05/16 20:59 10/07/16 10:24 Duloxetine HCl (Cymbalta) 30 mg DAILY ORAL 10/07/16 09:00 11/06/16 08:59 10/07/16 10:52 Fluticasone Propionate (Flonase) 1 spray TWICE A DAY NASAL 10/04/16 18:00 11/03/16 17:59 10/07/16 10:42 Gentamicin Sulfate/Sodium Chloride (Gentamicin 120mg/100ml NS INJ) 100 ml @ 100 mls/hr Q24H IVPB 10/06/16 16:00 10/13/16 15:59 10/06/16 16:21 Heparin Sodium (Porcine) (Heparin 5000 units/ml) 5,000 units EVERY 12 HOURS SUBQ 10/04/16 21:00 11/03/16 20:59 10/06/16 21:57 Latanoprost 1 drop 1 drop BEDTIME BOTH EYES 10/05/16 21:00 11/04/16 20:59 10/07/16 10:00 Levothyroxine Sodium (Synthroid) 88 mcg DAILY@0630 ORAL 10/05/16 06:30 11/04/16 06:29 10/07/16 06:43 Megestrol Acetate (Megace) 400 mg TWICE A DAY GT 10/06/16 18:00 11/05/16 17:59 10/06/16 18:13 Nitrofurantoin (Nitrofurantoin) 50 mg Q12HR GT 10/06/16 21:00 10/13/16 20:59 10/07/16 10:24 Pantoprazole (Protonix) 40 mg DAILY IV 10/05/16 09:00 11/04/16 08:59 10/05/16 08:35 Patient Own Medication (Patient's Own Med) 1 ea DAILY BOTH EYES 10/05/16 09:00 11/04/16 08:59 10/05/16 08:34 Patient Own Medication (Patient's Own Med) 1 ea DAILY ORAL 10/05/16 09:00 11/04/16 08:59 10/07/16 10:37 Tamsulosin HCl (Flomax) 0.4 mg BEDTIME ORAL 10/04/16 21:00 11/03/16 20:59 10/06/16 21:51 Height (Feet): 5 Height (Inches): 2.00 Weight (Pounds): 130 General Appearance: no apparent distress Head: normocephalic Eyes: right anicteric ENT: normal voice Neck: full range of motion, no mass Respiratory: decreased breath sounds Cardiovascular: regular rate, rhythm Gastrointestinal: normal bowel sounds, non tender, soft, no mass, no organomegaly, no bruit, no guarding Musculoskeletal: no calf tenderness Edema: no edema noted Generalized Neurologic: no new focality KERRI GUILLEN October 07, 2016 15:40
[2016-10-07 15:48] VITALS: BP 106/58
[2016-10-07] MEDS: Norco 5mg/325mg tab GT PRN ×2 (17:23→19:26)
[2016-10-07] MEDS: Gentamicin 120mg/100ml NS INJ 100 ML IVPB SCH (17:27)
[2016-10-07 20:00] VITALS: BP 127/68
[2016-10-07] MEDS: Tamsulosin 0.4mg cap ORAL SCH (20:44)
--- NOTE | 2016-10-07 21:39 | General Progress Note ---
Assessment/Plan Assessment/Plan Assessment - Poor po --> PEG - dehydration, hypernatremia - improving - anemia - drop in H&H presumed dilutional - UTI - Azotemia - improved Recommendation - Begin feeds - IVF - Abx - follow labs - d/c planning for am Subjective Allergies: Coded Allergies: NO KNOWN ALLERGIES (Unverified Allergy, Unknown, 03/22/15) Subjective Awake minimally interactive POD # 1 after PEG Objective Last 24 Hour Vital Signs Date Time Temp Pulse Resp B/P Pulse Ox O2 Delivery O2 Flow Rate FiO2 10/07/16 20:00 97.8 109 19 127/68 98 Room Air 10/07/16 16:00 109 10/07/16 15:48 97.5 104 20 106/58 97 Room Air 10/07/16 12:00 99 10/07/16 11:59 97.7 105 20 127/83 95 Room Air 10/07/16 10:29 114/55 10/07/16 08:01 97.7 105 20 114/55 97 Room Air 10/07/16 08:00 98 10/07/16 04:00 98.0 101 19 101/53 94 Room Air 10/07/16 04:00 112 10/07/16 00:00 97.8 92 20 97/53 97 Room Air 10/07/16 00:00 87 Intake and Output 10/06/16 10/07/16 19:00 07:00 Intake Total 1300 ml 700 ml Output Total 400 ml 500 ml Balance 900 ml 200 ml IV Total 1300 ml 700 ml Output Urine Total 400 ml 500 ml Laboratory Tests 10/07/16 07:05: White Blood Count 11.1H, Red Blood Count 3.62L, Hemoglobin 9.0L, Hematocrit 28.4L, Mean Corpuscular Volume 78L, Mean Corpuscular Hemoglobin 24.8L, Mean Corpuscular Hemoglobin Concent 31.6L, Red Cell Distribution Width 13.9, Platelet Count 307, Mean Platelet Volume 7.2, Neutrophils (%) (Auto) 78.7H, Lymphocytes (%) (Auto) 13.3L, Monocytes (%) (Auto) 6.3, Eosinophils (%) (Auto) 1.3, Basophils (%) (Auto) 0.4, Sodium Level 142, Potassium Level 4.0, Chloride Level 107, Carbon Dioxide Level 21, Anion Gap 14, Blood Urea Nitrogen 15, Creatinine 0.7, Estimat Glomerular Filtration Rate , Glucose Level 103, Calcium Level 7.6L Height (Feet): 5 Height (Inches): 2.00 Weight (Pounds): 130 Objective Thin elderly WW NCAT supple CTA RRR abd soft ND NT, (+)GT no edema OBS ASHWINI MORRIS October 07, 2016 21:39
[2016-10-07] MEDS ORDERED: Norco 5mg/325mg tab GT PRN (22:00)
[2016-10-07] MEDS ORDERED: Docusate 100mg/10ml Liq GT PRN (22:15)
[2016-10-07] MEDS: Tamsulosin 0.4mg cap GT SCH (22:36)
[2016-10-08] VITALS: BP 110/74
[2016-10-08] MEDS ORDERED: Acetaminophen 650 MG SUPP RECTAL PRN ×2
[2016-10-08 04:00] VITALS: BP 124/76
[2016-10-08 07:57] VITALS: BP 117/53
[2016-10-08] MEDS: D5W w/KCl 20mEq 1,000 ML IV SCH ×2 (08:00→18:26)
[2016-10-08] MEDS ORDERED: ALCAFTADINE BOTH EYES SCH (09:00)
[2016-10-08] MEDS ORDERED: Docusate 100mg cap ORAL SCH (09:00)
[2016-10-08] MEDS ORDERED: Benazepril 10mg tab ORAL SCH (09:00)
[2016-10-08] MEDS: Pantoprazole Inj IV SCH (09:00)
[2016-10-08] MEDS ORDERED: Megace 400mg/10ml Susp GT SCH (09:00)
[2016-10-08] MEDS: DULoxetine 30mg cap ORAL SCH (09:27)
[2016-10-08] MEDS: Heparin 5000 units/ml inj SUBQ SCH ×2 (09:30→21:37)
[2016-10-08] MEDS: Nuedexta Capsule 20/10mg GT SCH ×2 (09:32→21:35)
[2016-10-08] MEDS: Flonase Nasal Inhaler 16gm NASAL SCH ×2 (10:16→18:26)
[2016-10-08] MEDS: NUPLAZID 17 MG ORAL SCH (10:17)
[2016-10-08] MEDS: Nitrofurantoin 50mg cap GT SCH ×2 (10:34→21:35)
[2016-10-08 12:00] VITALS: BP 108/74
[2016-10-08 16:13] VITALS: BP 110/65
--- NOTE | 2016-10-08 16:20 | Geriatric Progress Note ---
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 Ledezma. D/c Megace, recheck labs. Continue IVF until labs in am. Monitor behavior. Consider increase Nuplazid if agitation recurs. Discussed with: hospital staff Subjective Interval Events Patient slightly anxious, confused, dysphoric. Initiate on TF, tolerating thus far. Nutrition recommendations noted. Subjective Unable to elicit detailed responses. Geriatric Geriatric Last 24 Hour Vital Signs Date Time Temp Pulse Resp B/P Pulse Ox O2 Delivery O2 Flow Rate FiO2 10/08/16 12:00 98.7 108 17 108/74 96 Room Air 10/08/16 09:31 104/58 10/08/16 07:57 97.8 104 22 117/53 97 Room Air 10/08/16 04:00 97.7 103 19 124/76 95 Room Air 10/08/16 00:00 97.9 105 20 110/74 98 Room Air 10/07/16 20:00 97.8 109 19 127/68 98 Room Air Intake and Output 10/07/16 10/08/16 19:00 07:00 Intake Total 200 ml 1380 ml Output Total 350 ml 375 ml Balance -150 ml 1005 ml Free Water 200 ml IV Total 200 ml 900 ml Tube Feeding 280 ml Output Urine Total 350 ml 375 ml # Bowel Movements 2 Current Medications Medications (Trade) Dose Ordered Sig/Patricia Route PRN Reason Start Time Stop Time Status Last Admin Dose Admin Acetaminophen (Tylenol) 650 mg Q4H PRN ORAL Mild Pain (Pain Scale 1-3) 10/08/16 00:00 11/07/16 00:00 10/08/16 11:21 Acetaminophen (Tylenol) 650 mg Q4H PRN ORAL T>100.5 10/08/16 00:00 11/07/16 00:00 Acetaminophen (Tylenol) 650 mg Q4H PRN RECTAL Mild Pain (Pain Scale 1-3) 10/08/16 00:00 11/07/16 00:00 Acetaminophen (Tylenol) 650 mg Q4H PRN RECTAL T>100.5 10/08/16 00:00 11/07/16 00:00 Acetaminophen/ Hydrocodone Bitart ([place] 5/325) 1 tab Q6H PRN GT PAIN 4-10 10/07/16 22:00 10/14/16 21:59 Benazepril HCl (Lotensin) 20 mg DAILY ORAL 10/08/16 09:00 11/07/16 08:59 10/08/16 09:31 Clotrimazole (Lotrimin) 1 applic EVERY 12 HOURS TOPIC 10/07/16 23:00 11/06/16 22:59 10/08/16 10:17 Dextromethorphan/ Quinidine (Nuedexta Capsule) 1 cap Q12HR GT 10/08/16 09:00 11/07/16 08:59 10/08/16 09:32 Dextrose (Dextrose 50%) STAT PRN IV Hypoglycemia 10/08/16 16:30 11/07/16 16:29 Dextrose/ Electrolytes 1,000 ml @ 100 mls/hr Q10H IV 10/07/16 22:00 11/06/16 21:59 10/08/16 08:00 Docusate Sodium (Colace) 100 mg Q12HR PRN GT Constipation 10/07/16 22:15 11/06/16 22:14 Duloxetine HCl (Cymbalta) 30 mg DAILY ORAL 10/08/16 09:00 11/07/16 08:59 10/08/16 09:27 Fluticasone Propionate (Flonase) 1 spray TWICE A DAY NASAL 10/08/16 09:00 11/07/16 08:59 10/08/16 10:16 Gentamicin Sulfate/Sodium Chloride (Gentamicin 120mg/100ml NS INJ) 100 ml @ 100 mls/hr Q24H IVPB 10/08/16 16:00 10/15/16 15:59 Heparin Sodium (Porcine) (Heparin 5000 units/ml) 5,000 units EVERY 12 HOURS SUBQ 10/08/16 09:00 11/07/16 08:59 10/08/16 09:30 Latanoprost (Xalatan) 1 drop BEDTIME BOTH EYES 10/08/16 23:00 11/07/16 22:59 Levothyroxine Sodium (Synthroid) 88 mcg ACBREAKFAST GT 10/08/16 06:30 11/07/16 06:29 10/08/16 06:01 Megestrol Acetate (Megace) 400 mg TWICE A DAY GT 10/08/16 09:00 11/07/16 08:59 10/08/16 09:18 Nitrofurantoin (Nitrofurantoin) 50 mg Q12HR GT 10/08/16 09:00 10/15/16 08:59 10/08/16 10:34 Pantoprazole (Protonix) 40 mg DAILY IV 10/08/16 09:00 11/07/16 08:59 10/08/16 09:00 Patient Own Medication (Patient's Own Med) 1 ea DAILY BOTH EYES 10/08/16 09:00 11/07/16 08:59 10/08/16 10:14 Patient Own Medication (Patient's Own Med) 1 ea DAILY ORAL 10/08/16 09:00 11/07/16 08:59 10/08/16 10:17 Tamsulosin HCl (Flomax) 0.4 mg BEDTIME GT 10/07/16 23:00 11/06/16 22:59 10/07/16 22:36 Height (Feet): 5 Height (Inches): 2.00 Weight (Pounds): 130 General Appearance: alert Head: normocephalic, atraumatic Eyes: bilateral anicteric ENT: normal voice Neck: full range of motion, no mass Respiratory: decreased breath sounds Cardiovascular: regular rate, rhythm Gastrointestinal: normal bowel sounds, non tender, soft, no mass, no organomegaly, non-distended Edema: no edema noted Generalized Neurologic: no new focality KERRI GUILLEN October 08, 2016 16:20
[2016-10-08] MEDS: Gentamicin 120mg/100ml NS INJ 100 ML IVPB SCH (16:56)
--- NOTE | 2016-10-08 17:57 | General Progress Note ---
Assessment/Plan Assessment/Plan Assessment - Poor po --> PEG - dehydration, hypernatremia - improving - anemia - drop in H&H presumed dilutional - UTI - Azotemia - improved Recommendation - Tube feeds - IVF - Abx - follow labs - d/c planning Subjective Allergies: Coded Allergies: NO KNOWN ALLERGIES (Unverified Allergy, Unknown, 03/22/15) Subjective Awake minimally interactive POD # 2 after PEG tolerating TF Objective Last 24 Hour Vital Signs Date Time Temp Pulse Resp B/P Pulse Ox O2 Delivery O2 Flow Rate FiO2 10/08/16 16:13 97.9 116 20 110/65 97 Room Air 10/08/16 12:00 98.7 108 17 108/74 96 Room Air 10/08/16 09:31 104/58 10/08/16 07:57 97.8 104 22 117/53 97 Room Air 10/08/16 04:00 97.7 103 19 124/76 95 Room Air 10/08/16 00:00 97.9 105 20 110/74 98 Room Air 10/07/16 20:00 97.8 109 19 127/68 98 Room Air Intake and Output 10/07/16 10/08/16 19:00 07:00 Intake Total 200 ml 1380 ml Output Total 350 ml 375 ml Balance -150 ml 1005 ml Free Water 200 ml IV Total 200 ml 900 ml Tube Feeding 280 ml Output Urine Total 350 ml 375 ml # Bowel Movements 2 Height (Feet): 5 Height (Inches): 2.00 Weight (Pounds): 130 Objective Thin elderly WW NCAT supple CTA RRR abd soft ND NT, (+)GT no edema OBS ASHWINI MORRIS October 08, 2016 17:57
--- NOTE | 2016-10-08 19:57 | Cardiology Progress Note ---
Assessment/Plan Assessment/Plan 1. Poor p.o. intake. 2. Aortic stenosis and mitral regurgitation. 3. History of recurrent urinary tract infection 4. hypernatremia 5. tachy seem tachy today wuill have labs in am and ekg add low dose bb dc ivf cxr in am decrease acei Subjective ROS Limited/Unobtainable: Yes Subjective not communicative Objective Last 24 Hour Vital Signs Date Time Temp Pulse Resp B/P Pulse Ox O2 Delivery O2 Flow Rate FiO2 10/08/16 16:13 97.9 116 20 110/65 97 Room Air 10/08/16 12:00 98.7 108 17 108/74 96 Room Air 10/08/16 09:31 104/58 10/08/16 07:57 97.8 104 22 117/53 97 Room Air 10/08/16 04:00 97.7 103 19 124/76 95 Room Air 10/08/16 00:00 97.9 105 20 110/74 98 Room Air 10/07/16 20:00 97.8 109 19 127/68 98 Room Air General Appearance: no apparent distress Neck: supple Cardiovascular: normal rate, tachycardia Respiratory/Chest: decreased breath sounds Abdomen: normal bowel sounds, soft Extremities: no swelling Intake and Output 10/07/16 10/08/16 19:00 07:00 Intake Total 200 ml 1380 ml Output Total 350 ml 375 ml Balance -150 ml 1005 ml Free Water 200 ml IV Total 200 ml 900 ml Tube Feeding 280 ml Output Urine Total 350 ml 375 ml # Bowel Movements 2 FRANCIS VELEZ October 08, 2016 19:57
[2016-10-08 20:00] VITALS: BP 103/57
[2016-10-08] MEDS: Tamsulosin 0.4mg cap GT SCH (21:35)
[2016-10-08] MEDS: Metoprolol Tartrate 12.5mg TAB GT SCH (21:35)
[2016-10-09] VITALS: BP 104/55
[2016-10-09 04:00] VITALS: BP 101/56
[2016-10-09 07:11] LABS: ALANINE AMINOTRANSFERASE 18 U/L (3-33); ALBUMIN/GLOBULIN RATIO 0.5 (1.0-2.7); ANION GAP 14 (5-15); ASPARTATE AMINO TRANSFERASE 39 U/L (5-40); CALCIUM 8.6 mg/dL (8.6-10.2); CARBON DIOXIDE 22 mEQ/L (20-30); CHLORIDE 101 mEQ/L (98-107); CREATININE 0.7 mg/dL (0.5-0.9); HEMOLYSIS 0; MAGNESIUM 1.5 mg/dL (1.7-2.5); PHOSPHORUS 1.9 mg/dL (2.5-4.8); POTASSIUM 4.1 mEQ/L (3.4-4.9); SODIUM 137 mEQ/L (135-145); TOTAL PROTEIN 5.9 g/dL (6.6-8.7)
[2016-10-09 07:21] LABS: BASOPHILS % (AUTO) 0.4 % (0.0-2.0); EOSINOPHILS % (AUTO) 0.7 % (0.0-3.0); LYMPHOCYTES % (AUTO) 14.8 % (20.0-45.0); MEAN CORPUSCULAR HEMOGLOBIN 24.7 PG (27.0-31.0); MEAN CORPUSCULAR HGB CONC 32.1 G/DL (32.0-36.0); MEAN CORPUSCULAR VOLUME 77 FL (80-99); MEAN PLATELET VOLUME 7.4 FL (6.5-10.1); PLATELET COUNT 385 K/UL (150-450); RED BLOOD COUNT 4.16 M/UL (4.20-5.40); RED CELL DISTRIBUTION WIDTH 13.8 % (11.6-14.8); WHITE BLOOD COUNT 12.1 K/UL (4.8-10.8)
[2016-10-09 08:15] VITALS: BP 102/63
[2016-10-09] MEDS: NUPLAZID 17 MG ORAL SCH (08:39)
[2016-10-09] MEDS: Nuedexta Capsule 20/10mg GT SCH ×2 (08:39→22:18)
[2016-10-09] MEDS: Flonase Nasal Inhaler 16gm NASAL SCH ×2 (08:39→18:26)
[2016-10-09] MEDS: DULoxetine 30mg cap ORAL SCH (08:39)
[2016-10-09] MEDS: Nitrofurantoin 50mg cap GT SCH ×2 (08:39→22:18)
[2016-10-09] MEDS: Heparin 5000 units/ml inj SUBQ SCH ×2 (08:40→22:22)
[2016-10-09] MEDS: Pantoprazole Inj IV SCH (08:40)
[2016-10-09] MEDS: Benazepril 10mg tab ORAL SCH (09:00)
[2016-10-09] MEDS: Metoprolol Tartrate 12.5mg TAB GT SCH ×2 (09:00→21:00)
--- NOTE | 2016-10-09 11:50 | Diagnostic Imaging Report ---
Indications: Chest pain Technique: Portable AP chest Findings: Comparison: 10/04/16 Inspiratory effort has decreased. Elevation of the apparent left hemidiaphragm has developed with overlying linear density and costophrenic angle blunting. Interstitial markings have increased bilaterally. Size of the cardiac silhouette appears to have increased. No other change. IMPRESSION: Apparent increase in stomach size interstitial prominence may all be technically related. Development of mild congestive heart failure must also be considered. Development of atelectasis left lung base and possible pleural effusion
[2016-10-09 12:04] VITALS: BP 102/65
[2016-10-09] MEDS ORDERED: CLOTRIMAZOLE15 GM TOPIC (13:51)
[2016-10-09] MEDS ORDERED: FLONASE1 SPRAYS NASAL (13:51)
[2016-10-09] MEDS ORDERED: LIDODERM700 M1 TDERMAL (13:51)
--- NOTE | 2016-10-09 13:58 | Geriatric Progress Note ---
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 Decreased phos should normalize with feedings. Decreased Magnesium will supplement. Behavior adequately controlled. 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 UTI on tx. Volume status normalized, off IVF. Discussed with d/c service planner, looking for SNF placement per Dtr's preference. Discussed with: patient, hospital staff Subjective Interval Events Patient quiet. C/o neck pain. Staff reports some diarrhea with GTF. Behavior controlled at present. Subjective Unable to elicit detailed responses. Geriatric Geriatric Last 24 Hour Vital Signs Date Time Temp Pulse Resp B/P Pulse Ox O2 Delivery O2 Flow Rate FiO2 10/09/16 12:04 98.4 101 18 102/65 98 Room Air 10/09/16 09:00 105 102/63 10/09/16 09:00 102/63 10/09/16 08:15 98.0 105 18 102/63 98 Room Air 10/09/16 04:00 97.7 99 18 101/56 97 Room Air 10/09/16 00:00 96.4 91 18 104/55 96 Room Air 10/08/16 21:35 105 111/50 10/08/16 20:00 98.6 105 18 103/57 97 Room Air 10/08/16 16:13 97.9 116 20 110/65 97 Room Air Intake and Output 10/08/16 10/09/16 19:00 07:00 Intake Total 1580 ml 860 ml Output Total 1100 ml Balance 480 ml 860 ml Free Water 100 ml 200 ml IV Total 800 ml Tube Feeding 680 ml 660 ml Output Urine Total 1100 ml Laboratory Tests Test 10/09/16 05:05 White Blood Count 12.1 K/UL (4.8-10.8) H Red Blood Count 4.16 M/UL (4.20-5.40) L Hemoglobin 10.3 G/DL (12.0-16.0) L Hematocrit 32.0 % (37.0-47.0) L Mean Corpuscular Volume 77 FL (80-99) L Mean Corpuscular Hemoglobin 24.7 PG (27.0-31.0) L Mean Corpuscular Hemoglobin Concent 32.1 G/DL (32.0-36.0) Red Cell Distribution Width 13.8 % (11.6-14.8) Platelet Count 385 K/UL (150-450) Mean Platelet Volume 7.4 FL (6.5-10.1) Neutrophils (%) (Auto) 77.0 % (45.0-75.0) H Lymphocytes (%) (Auto) 14.8 % (20.0-45.0) L Monocytes (%) (Auto) 7.0 % (1.0-10.0) Eosinophils (%) (Auto) 0.7 % (0.0-3.0) Basophils (%) (Auto) 0.4 % (0.0-2.0) Sodium Level 137 mEQ/L (135-145) Potassium Level 4.1 mEQ/L (3.4-4.9) Chloride Level 101 mEQ/L (98-107) Carbon Dioxide Level 22 mEQ/L (20-30) Anion Gap 14 (5-15) Blood Urea Nitrogen 11 mg/dL (7-23) Creatinine 0.7 mg/dL (0.5-0.9) Estimat Glomerular Filtration Rate mL/min (>60) Glucose Level 107 mg/dL (74-106) H Calcium Level 8.6 mg/dL (8.6-10.2) Phosphorus Level 1.9 mg/dL (2.5-4.8) L Magnesium Level 1.5 mg/dL (1.7-2.5) L Total Bilirubin 0.3 mg/dL (0.0-1.2) Aspartate Amino Transf (AST/SGOT) 39 U/L (5-40) Alanine Aminotransferase (ALT/SGPT) 18 U/L (3-33) Alkaline Phosphatase 66 U/L (35-104) Total Protein 5.9 g/dL (6.6-8.7) L Albumin 2.1 g/dL (3.5-5.2) L Globulin 3.8 g/dL Albumin/Globulin Ratio 0.5 (1.0-2.7) L Current Medications Medications (Trade) Dose Ordered Sig/Patricia Route PRN Reason Start Time Stop Time Status Last Admin Dose Admin Acetaminophen (Tylenol) 650 mg Q4H PRN ORAL Mild Pain (Pain Scale 1-3) 10/08/16 00:00 11/07/16 00:00 10/08/16 11:21 Acetaminophen (Tylenol) 650 mg Q4H PRN ORAL T>100.5 10/08/16 00:00 11/07/16 00:00 Acetaminophen (Tylenol) 650 mg Q4H PRN RECTAL Mild Pain (Pain Scale 1-3) 10/08/16 00:00 11/07/16 00:00 Acetaminophen (Tylenol) 650 mg Q4H PRN RECTAL T>100.5 10/08/16 00:00 11/07/16 00:00 Benazepril HCl (Lotensin) 10 mg DAILY ORAL 10/09/16 09:00 11/08/16 08:59 Clotrimazole (Lotrimin) 1 applic EVERY 12 HOURS TOPIC 10/07/16 23:00 11/06/16 22:59 10/09/16 08:39 Dextromethorphan/ Quinidine (Nuedexta Capsule) 1 cap Q12HR GT 10/08/16 09:00 11/07/16 08:59 10/09/16 08:39 Dextrose (Dextrose 50%) STAT PRN IV Hypoglycemia 10/08/16 16:30 11/07/16 16:29 Docusate Sodium (Colace) 100 mg Q12HR PRN GT Constipation 10/07/16 22:15 11/06/16 22:14 Duloxetine HCl (Cymbalta) 30 mg DAILY ORAL 10/08/16 09:00 11/07/16 08:59 10/09/16 08:39 Fluticasone Propionate (Flonase) 1 spray TWICE A DAY NASAL 10/08/16 09:00 11/07/16 08:59 10/09/16 08:39 Gentamicin Sulfate/Sodium Chloride (Gentamicin 120mg/100ml NS INJ) 100 ml @ 100 mls/hr Q24H IVPB 10/08/16 16:00 10/15/16 15:59 10/08/16 16:56 Heparin Sodium (Porcine) (Heparin 5000 units/ml) 5,000 units EVERY 12 HOURS SUBQ 10/08/16 09:00 11/07/16 08:59 10/09/16 08:40 Latanoprost (Xalatan) 1 drop BEDTIME BOTH EYES 10/08/16 23:00 11/07/16 22:59 10/08/16 23:29 Levothyroxine Sodium (Synthroid) 88 mcg ACBREAKFAST GT 10/08/16 06:30 11/07/16 06:29 10/09/16 06:39 Metoprolol Tartrate (Lopressor) 12.5 mg Q12HR GT 10/08/16 21:00 11/07/16 20:59 10/08/16 21:35 Nitrofurantoin (Nitrofurantoin) 50 mg Q12HR GT 10/08/16 09:00 10/15/16 08:59 10/09/16 08:39 Pantoprazole (Protonix) 40 mg DAILY IV 10/08/16 09:00 11/07/16 08:59 10/09/16 08:40 Patient Own Medication (Patient's Own Med) 1 ea DAILY ORAL 10/08/16 09:00 11/07/16 08:59 10/09/16 08:39 Tamsulosin HCl (Flomax) 0.4 mg BEDTIME GT 10/07/16 23:00 11/06/16 22:59 10/08/16 21:35 Height (Feet): 5 Height (Inches): 2.00 Weight (Pounds): 130 General Appearance: alert Head: normocephalic Eyes: bilateral anicteric ENT: normal voice Neck: full range of motion, no mass Respiratory: decreased breath sounds Cardiovascular: regular rate, rhythm Gastrointestinal: normal bowel sounds, non tender, soft, no mass, no organomegaly, non-distended Musculoskeletal: no calf tenderness Edema: no edema noted Generalized Neurologic: no new focality KERRI GUILLEN October 09, 2016 13:58
[2016-10-09] MEDS ORDERED: Tubing IV Secondary IV ONE ×2 (15:17→16:27)
[2016-10-09] MEDS ORDERED: Sterile Water Irrig 1000ml IRRIG ONE (15:17)
[2016-10-09 15:36] VITALS: BP 107/58
[2016-10-09] MEDS: Gentamicin 120mg/100ml NS INJ 100 ML IVPB SCH (16:15)
[2016-10-09] MEDS ORDERED: D5 1/2NS 1000ml IV ONE (16:27)
[2016-10-09] MEDS ORDERED: NS 275ml ONE (16:27)
[2016-10-09 20:00] VITALS: BP 96/51
[2016-10-09] MEDS: Tamsulosin 0.4mg cap GT SCH (22:18)
--- NOTE | 2016-10-09 23:05 | General Progress Note ---
Assessment/Plan Assessment/Plan Assessment - Poor po --> PEG - dehydration, hypernatremia - improving - anemia - drop in H&H presumed dilutional - UTI - Azotemia - improved Recommendation - Tube feeds - change formula - IVF - Abx - follow labs - d/c planning Subjective Allergies: Coded Allergies: NO KNOWN ALLERGIES (Unverified Allergy, Unknown, 03/22/15) Subjective Awake minimally interactive s/p PEG tolerating TF Objective Last 24 Hour Vital Signs Date Time Temp Pulse Resp B/P Pulse Ox O2 Delivery O2 Flow Rate FiO2 10/09/16 21:00 102 98/52 10/09/16 20:00 97.9 114 22 96/51 98 Room Air 10/09/16 18:39 98.0 10/09/16 15:36 98.0 102 18 107/58 98 Room Air 10/09/16 12:04 98.4 101 18 102/65 98 Room Air 10/09/16 09:00 105 102/63 10/09/16 09:00 102/63 10/09/16 08:15 98.0 105 18 102/63 98 Room Air 10/09/16 04:00 97.7 99 18 101/56 97 Room Air 10/09/16 00:00 96.4 91 18 104/55 96 Room Air Intake and Output 10/08/16 10/09/16 19:00 07:00 Intake Total 1580 ml 860 ml Output Total 1100 ml Balance 480 ml 860 ml Free Water 100 ml 200 ml IV Total 800 ml Tube Feeding 680 ml 660 ml Output Urine Total 1100 ml Laboratory Tests 10/09/16 05:05: White Blood Count 12.1H, Red Blood Count 4.16L, Hemoglobin 10.3L, Hematocrit 32.0L, Mean Corpuscular Volume 77L, Mean Corpuscular Hemoglobin 24.7L, Mean Corpuscular Hemoglobin Concent 32.1, Red Cell Distribution Width 13.8, Platelet Count 385, Mean Platelet Volume 7.4, Neutrophils (%) (Auto) 77.0H, Lymphocytes ( %) (Auto) 14.8L, Monocytes (%) (Auto) 7.0, Eosinophils (%) (Auto) 0.7, Basophils (%) (Auto) 0.4, Sodium Level 137, Potassium Level 4.1, Chloride Level 101, Carbon Dioxide Level 22, Anion Gap 14, Blood Urea Nitrogen 11, Creatinine 0.7, Estimat Glomerular Filtration Rate , Glucose Level 107H, Calcium Level 8.6 , Phosphorus Level 1.9L, Magnesium Level 1.5L, Total Bilirubin 0.3, Aspartate Amino Transf (AST/SGOT) 39, Alanine Aminotransferase (ALT/SGPT) 18, Alkaline Phosphatase 66, Total Protein 5.9L, Albumin 2.1L, Globulin 3.8, Albumin/ Globulin Ratio 0.5L Height (Feet): 5 Height (Inches): 2.00 Weight (Pounds): 130 Objective Thin elderly WW NCAT supple CTA RRR abd soft ND NT, (+)GT no edema OBS ASHWINI MORRIS October 09, 2016 23:05
[2016-10-10] VITALS (7 sets, daily range): BP systolic 89–115; BP diastolic 49–63
[2016-10-10] MEDS: Nuedexta Capsule 20/10mg GT SCH ×2 (08:54→20:58)
[2016-10-10] MEDS: Nitrofurantoin 50mg cap GT SCH (08:54)
[2016-10-10] MEDS: DULoxetine 30mg cap ORAL SCH (08:54)
[2016-10-10] MEDS: Benazepril 10mg tab ORAL SCH (08:55)
[2016-10-10] MEDS: Metoprolol Tartrate 12.5mg TAB GT SCH ×2 (08:55→20:59)
[2016-10-10] MEDS: Heparin 5000 units/ml inj SUBQ SCH ×2 (08:58→21:06)
[2016-10-10] MEDS: Flonase Nasal Inhaler 16gm NASAL SCH ×2 (09:36→18:32)
[2016-10-10] MEDS: NUPLAZID 17 MG ORAL SCH (09:36)
[2016-10-10] MEDS: Pantoprazole Inj IV SCH (09:37)
[2016-10-10] MEDS: Gentamicin 120mg/100ml NS INJ 100 ML IVPB SCH (16:16)
[2016-10-10 17:40] LABS: ANION GAP 15 (5-15); CALCIUM 8.5 mg/dL (8.6-10.2); CARBON DIOXIDE 24 mEQ/L (20-30); CHLORIDE 96 mEQ/L (98-107); CREATININE 0.7 mg/dL (0.5-0.9); HEMOLYSIS 0; POTASSIUM 4.5 mEQ/L (3.4-4.9); SODIUM 135 mEQ/L (135-145)
[2016-10-10 17:49] LABS: BASOPHILS % (AUTO) 0.5 % (0.0-2.0); EOSINOPHILS % (AUTO) 0.8 % (0.0-3.0); LYMPHOCYTES % (AUTO) 12.7 % (20.0-45.0); MEAN CORPUSCULAR HEMOGLOBIN 27.1 PG (27.0-31.0); MEAN CORPUSCULAR HGB CONC 35.3 G/DL (32.0-36.0); MEAN CORPUSCULAR VOLUME 77 FL (80-99); MEAN PLATELET VOLUME 7.8 FL (6.5-10.1); MONOCYTES % (AUTO) 8.6 % (1.0-10.0); NEUTROPHILS % (AUTO) 77.4 % (45.0-75.0); PLATELET COUNT 371 K/UL (150-450); RED BLOOD COUNT 3.83 M/UL (4.20-5.40); RED CELL DISTRIBUTION WIDTH 13.7 % (11.6-14.8); WHITE BLOOD COUNT 16.3 K/UL (4.8-10.8)
[2016-10-10 17:52] LABS: APPEARANCE,URINE SLIGHTLY CLOUDY; KETONES,URINE NEGATIVE (NEGATIVE); LEUKOCYTE ESTERASE ,URINE 2+ (NEGATIVE); NITRITE,URINE NEGATIVE (NEGATIVE); PH,URINE 6 (4.5-8.0); PROTEIN,URINE 2+ (NEGATIVE); UROBILINOGEN,URINE 8 MG/DL (0.0-1.0)
[2016-10-10 18:06] LABS: RBC,URINE 0-2 /HPF (0 - 2)
[2016-10-10 18:07] LABS: BACTERIA,URINE FEW /HPF; YEAST,URINE MODERATE /HPF
--- NOTE | 2016-10-10 18:51 | General Progress Note ---
Assessment/Plan Assessment/Plan Assessment - Poor po --> PEG - dehydration, hypernatremia - anemia - UTI - Azotemia - improved Recommendation - Tube feeds - IVF - Abx - follow labs - d/c planning Subjective Allergies: Coded Allergies: NO KNOWN ALLERGIES (Unverified Allergy, Unknown, 03/22/15) Subjective Awake minimally interactive s/p PEG tolerating TF Objective Last 24 Hour Vital Signs Date Time Temp Pulse Resp B/P Pulse Ox O2 Delivery O2 Flow Rate FiO2 10/10/16 16:25 118 115/63 10/10/16 16:07 96.4 123 26 89/56 97 Room Air 10/10/16 12:00 98.1 112 23 103/49 Nasal Cannula 10/10/16 10:37 98.2 10/10/16 08:55 103 109/54 10/10/16 08:55 109/54 10/10/16 08:39 98.2 103 21 109/54 96 Room Air 10/10/16 04:00 98.1 106 22 99/52 97 Room Air 10/10/16 00:00 98.0 105 22 111/57 93 Room Air 10/09/16 21:00 102 98/52 10/09/16 20:00 97.9 114 22 96/51 98 Room Air Intake and Output 10/09/16 10/10/16 19:00 07:00 Intake Total 760 ml 860 ml Output Total 900 ml 950 ml Balance -140 ml -90 ml Free Water 100 ml 200 ml Tube Feeding 660 ml 660 ml Output Urine Total 900 ml 950 ml # Bowel Movements 1 Laboratory Tests 10/10/16 16:50: Urine Color Yellow, Urine Appearance Slightly cloudy, Urine pH 6, Urine Specific [place] 1.010, Urine Protein 2+H, Urine Glucose (UA) Negative, Urine Ketones Negative, Urine Occult Blood 2+H, Urine Nitrite Negative, Urine Bilirubin Negative, Urine Urobilinogen 8H, Urine Leukocyte Esterase 2+H, Urine RBC 0-2, Urine WBC 5-10H, Urine Squamous Epithelial Cells None, Urine Bacteria Few, Urine Yeast ModerateH 10/10/16 17:13: White Blood Count 16.3H, Red Blood Count 3.83L, Hemoglobin 10.4L, Hematocrit 29.4L, Mean Corpuscular Volume 77L, Mean Corpuscular Hemoglobin 27.1, Mean Corpuscular Hemoglobin Concent 35.3, Red Cell Distribution Width 13.7, Platelet Count 371, Mean Platelet Volume 7.8, Neutrophils (%) (Auto) 77.4H, Lymphocytes ( %) (Auto) 12.7L, Monocytes (%) (Auto) 8.6, Eosinophils (%) (Auto) 0.8, Basophils (%) (Auto) 0.5, Sodium Level 135, Potassium Level 4.5, Chloride Level 96L, Carbon Dioxide Level 24, Anion Gap 15, Blood Urea Nitrogen 23, Creatinine 0.7, Estimat Glomerular Filtration Rate , Glucose Level 123H, Calcium Level 8.5L Height (Feet): 5 Height (Inches): 2.00 Weight (Pounds): 130 Objective Thin elderly WW NCAT supple CTA RRR abd soft ND NT, (+)GT no edema OBS ASHWINI MORRIS October 10, 2016 18:51
[2016-10-10] MEDS: Tamsulosin 0.4mg cap GT SCH (20:59)
--- NOTE | 2016-10-10 22:46 | Geriatric Progress Note ---
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 Consider relapsed UTI due to lack of response to Gent/ Nitrofurantoin. Blood C&S ordered, coverage changed back to Zosyn. Patient with possible anatomic reason for recurrent UTIs, consider reimaging abdomen, but not a likely candidate for invasive procedure. Recheck labs. Tolerating feedings so far, continue enteral nutrition. Behavior more likely due toinfectious process than meds, will continue current regimen for now and monitor. Maintain present approach. D/c planning in process. Discussed with: hospital staff Subjective Interval Events Patient with mumbled response, seems to deny discomfort, but reports pain in many places. Muted without overt distress. Dtr earlier concerned that patient is hallucinatory, wanted change in medications. This evening patient noted to be hypotensive, with increasing tachycardia. NS 500cc bolus given and IVF started. Stat labs checked with recurrent leukocytosis to 16K. No diarrhea noted. No overt respiratory sxs. No fever reported. No IV site inflammation reported per staff. Subjective Unable to elicit detailed responses. Geriatric Geriatric Last 24 Hour Vital Signs Date Time Temp Pulse Resp B/P Pulse Ox O2 Delivery O2 Flow Rate FiO2 10/10/16 20:59 106 102/58 10/10/16 20:00 97.0 106 22 102/58 95 Room Air 10/10/16 16:25 118 115/63 10/10/16 16:07 96.4 123 26 89/56 97 Room Air 10/10/16 12:00 98.1 112 23 103/49 Nasal Cannula 10/10/16 10:37 98.2 10/10/16 08:55 103 109/54 10/10/16 08:55 109/54 10/10/16 08:39 98.2 103 21 109/54 96 Room Air 10/10/16 04:00 98.1 106 22 99/52 97 Room Air 10/10/16 00:00 98.0 105 22 111/57 93 Room Air Intake and Output 10/09/16 10/10/16 19:00 07:00 Intake Total 760 ml 860 ml Output Total 900 ml 950 ml Balance -140 ml -90 ml Free Water 100 ml 200 ml Tube Feeding 660 ml 660 ml Output Urine Total 900 ml 950 ml # Bowel Movements 1 Laboratory Tests Test 10/10/16 16:50 10/10/16 17:13 Urine Color Yellow Urine Appearance Slightly cloudy Urine pH 6 (4.5-8.0) Urine Specific [place] 1.010 (1.005-1.035) Urine Protein 2+ (NEGATIVE) H Urine Glucose (UA) Negative (NEGATIVE) Urine Ketones Negative (NEGATIVE) Urine Occult Blood 2+ (NEGATIVE) H Urine Nitrite Negative (NEGATIVE) Urine Bilirubin Negative (NEGATIVE) Urine Urobilinogen 8 MG/DL (0.0-1.0) H Urine Leukocyte Esterase 2+ (NEGATIVE) H Urine RBC 0-2 /HPF (0 - 2) Urine WBC 5-10 /HPF (0 - 2) H Urine Squamous Epithelial Cells None /LPF (NONE/OCC) Urine Bacteria Few /HPF (NONE) Urine Yeast Moderate /HPF (NONE) H White Blood Count 16.3 K/UL (4.8-10.8) H Red Blood Count 3.83 M/UL (4.20-5.40) L Hemoglobin 10.4 G/DL (12.0-16.0) L Hematocrit 29.4 % (37.0-47.0) L Mean Corpuscular Volume 77 FL (80-99) L Mean Corpuscular Hemoglobin 27.1 PG (27.0-31.0) Mean Corpuscular Hemoglobin Concent 35.3 G/DL (32.0-36.0) Red Cell Distribution Width 13.7 % (11.6-14.8) Platelet Count 371 K/UL (150-450) Mean Platelet Volume 7.8 FL (6.5-10.1) Neutrophils (%) (Auto) 77.4 % (45.0-75.0) H Lymphocytes (%) (Auto) 12.7 % (20.0-45.0) L Monocytes (%) (Auto) 8.6 % (1.0-10.0) Eosinophils (%) (Auto) 0.8 % (0.0-3.0) Basophils (%) (Auto) 0.5 % (0.0-2.0) Sodium Level 135 mEQ/L (135-145) Potassium Level 4.5 mEQ/L (3.4-4.9) Chloride Level 96 mEQ/L (98-107) L Carbon Dioxide Level 24 mEQ/L (20-30) Anion Gap 15 (5-15) Blood Urea Nitrogen 23 mg/dL (7-23) Creatinine 0.7 mg/dL (0.5-0.9) Estimat Glomerular Filtration Rate mL/min (>60) Glucose Level 123 mg/dL (74-106) H Calcium Level 8.5 mg/dL (8.6-10.2) L Current Medications Medications (Trade) Dose Ordered Sig/Patricia Route PRN Reason Start Time Stop Time Status Last Admin Dose Admin Acetaminophen (Tylenol) 650 mg Q4H PRN ORAL Mild Pain (Pain Scale 1-3) 10/08/16 00:00 11/07/16 00:00 10/10/16 09:38 Acetaminophen (Tylenol) 650 mg Q4H PRN ORAL T>100.5 10/08/16 00:00 11/07/16 00:00 Acetaminophen (Tylenol) 650 mg Q4H PRN RECTAL Mild Pain (Pain Scale 1-3) 10/08/16 00:00 11/07/16 00:00 10/09/16 18:09 Acetaminophen (Tylenol) 650 mg Q4H PRN RECTAL T>100.5 10/08/16 00:00 11/07/16 00:00 Benazepril HCl (Lotensin) 10 mg DAILY ORAL 10/09/16 09:00 11/08/16 08:59 Clotrimazole (Lotrimin) 1 applic EVERY 12 HOURS TOPIC 10/07/16 23:00 11/06/16 22:59 10/10/16 20:58 Dextromethorphan/ Quinidine (Nuedexta Capsule) 1 cap Q12HR GT 10/08/16 09:00 11/07/16 08:59 10/10/16 20:58 Dextrose (Dextrose 50%) STAT PRN IV Hypoglycemia 10/08/16 16:30 11/07/16 16:29 Docusate Sodium (Colace) 100 mg Q12HR PRN GT Constipation 10/07/16 22:15 11/06/16 22:14 Duloxetine HCl (Cymbalta) 30 mg DAILY ORAL 10/08/16 09:00 11/07/16 08:59 10/10/16 08:54 Fluticasone Propionate (Flonase) 1 spray TWICE A DAY NASAL 10/08/16 09:00 11/07/16 08:59 10/10/16 18:32 Heparin Sodium (Porcine) (Heparin 5000 units/ml) 5,000 units EVERY 12 HOURS SUBQ 10/08/16 09:00 11/07/16 08:59 10/10/16 21:06 Latanoprost (Xalatan) 1 drop BEDTIME BOTH EYES 10/08/16 23:00 11/07/16 22:59 10/10/16 20:58 Levothyroxine Sodium (Synthroid) 88 mcg ACBREAKFAST GT 10/08/16 06:30 11/07/16 06:29 10/10/16 06:19 Lidocaine 1 patch 1 patch DAILY TDERMAL 10/09/16 14:00 11/08/16 13:59 10/10/16 08:56 Metoprolol Tartrate (Lopressor) 12.5 mg Q12HR GT 10/08/16 21:00 11/07/16 20:59 10/08/16 21:35 Pantoprazole (Protonix) 40 mg DAILY IV 10/08/16 09:00 11/07/16 08:59 10/10/16 09:37 Patient Own Medication (Patient's Own Med) 1 ea DAILY ORAL 10/08/16 09:00 11/07/16 08:59 10/10/16 09:36 Piperacillin Sod/ Tazobactam Sod/ Dextrose (Zosyn/D5W) 110 ml @ 27.5 mls/hr EVERY 12 HOURS IVPB 10/10/16 22:00 10/15/16 21:59 Sodium Chloride 1,000 ml @ 75 mls/hr [id number] IV 10/10/16 16:45 11/09/16 16:44 10/10/16 19:13 Tamsulosin HCl (Flomax) 0.4 mg BEDTIME GT 10/07/16 23:00 11/06/16 22:59 10/10/16 20:59 Height (Feet): 5 Height (Inches): 2.00 Weight (Pounds): 130 General Appearance: alert Head: normocephalic Eyes: bilateral anicteric ENT: normal voice - soft voice, other - cheeks flushed. Neck: no mass Respiratory: decreased breath sounds Cardiovascular: regular rate, rhythm Gastrointestinal: normal bowel sounds, soft, no mass, no organomegaly, tenderness - mild generalized Musculoskeletal: no calf tenderness Edema: no edema noted Generalized Neurologic: no new focality KERRI GUILLEN October 10, 2016 22:46
[2016-10-10] MEDS: Piperacillin/Tazobactam 3.375 GM in D5W 110 ML IVPB SCH (23:23)
[2016-10-11 00:10] VITALS: BP 104/44
[2016-10-11 04:00] VITALS: BP 121/41
[2016-10-11 07:59] LABS: ALANINE AMINOTRANSFERASE 23 U/L (3-33); ALBUMIN/GLOBULIN RATIO 0.8 (1.0-2.7); ANION GAP 15 (5-15); ASPARTATE AMINO TRANSFERASE 55 U/L (5-40); CALCIUM 8.3 mg/dL (8.6-10.2); CARBON DIOXIDE 21 mEQ/L (20-30); CHLORIDE 96 mEQ/L (98-107); CREATININE 0.6 mg/dL (0.5-0.9); HEMOLYSIS 77; POTASSIUM 5.3 mEQ/L (3.4-4.9); SODIUM 132 mEQ/L (135-145); TOTAL PROTEIN 5.4 g/dL (6.6-8.7)
[2016-10-11 08:08] VITALS: BP 100/50
[2016-10-11] MEDS: Benazepril 10mg tab ORAL SCH (09:00)
[2016-10-11] MEDS: DULoxetine 30mg cap ORAL SCH (09:24)
[2016-10-11] MEDS: Nuedexta Capsule 20/10mg GT SCH (09:24)
[2016-10-11] MEDS: NUPLAZID 17 MG ORAL SCH (09:24)
[2016-10-11] MEDS: Flonase Nasal Inhaler 16gm NASAL SCH ×2 (09:24→18:09)
[2016-10-11] MEDS: Metoprolol Tartrate 12.5mg TAB GT SCH ×2 (09:25→20:32)
[2016-10-11 09:26] LABS: MEAN CORPUSCULAR HEMOGLOBIN 24.9 PG (27.0-31.0); MEAN CORPUSCULAR HGB CONC 32.1 G/DL (32.0-36.0); MEAN CORPUSCULAR VOLUME 78 FL (80-99); MEAN PLATELET VOLUME 7.4 FL (6.5-10.1); PLATELET COUNT 427 K/UL (150-450); RED CELL DISTRIBUTION WIDTH 14.3 % (11.6-14.8); WHITE BLOOD COUNT 18.6 K/UL (4.8-10.8)
[2016-10-11] MEDS: Heparin 5000 units/ml inj SUBQ SCH ×2 (09:29→20:45)
[2016-10-11] MEDS: Piperacillin/Tazobactam 3.375 GM in D5W 110 ML IVPB SCH (10:22)
[2016-10-11] MEDS: Pantoprazole Inj IV SCH (10:22)
[2016-10-11 11:29] LABS: ANISOCYTOSIS 1+; BAND NEUTROPHILS % (MANUAL) 5 % (0-8); BASOPHILS % (MANUAL) 0 % (0-2); EOSINOPHILS % (MANUAL) 0 % (0-3); LYMPHOCYTES % (MANUAL) 9 % (20-45); MICROCYTES 1+; MYELOCYTES % 4 % (0-0); NEUTROPHILS % (MANUAL) 77 % (45-75); PLATELET ESTIMATE ADEQUATE; PLATELET MORPHOLOGY NORMAL; TOTAL CELLS COUNTED 100
[2016-10-11 11:30] LABS: HYPOCHROMASIA 1+; POLYCHROMASIA OCCASIONAL
[2016-10-11 12:00] VITALS: BP 95/47
--- NOTE | 2016-10-11 12:22 | Diagnostic Imaging Report ---
Indication: Abdominal pain. Air within the uterus noted on previous study. CT cystogram performed for evaluation of possible fistula Technique: Continuous helical transaxial imaging of the abdomen and pelvis was obtained from the lung bases to the pubic symphysis. No intravenous contrast was administered. Study obtained after retrograde administration of nonionic contrast via the indwelling Lundberg catheter. Scan was obtained with a full bladder and after bladder drainage. Coronal 2-D reformats were also obtained. Total Dose length Product (DLP): [address] Dose Index Volume (CTDIvol): 13x2 mGy Comparison: CT 09/11/16 Findings: The lung bases demonstrate mild basilar atelectasis. Gastrostomy tube is present. Anasarca noted. Moderate arterial vascular calcifications demonstrated within the aorta. There are diverticula within the colon. CT cystogram demonstrates contrast material within a distended urinary bladder. There is severe vesicoureteral of contrast into both ureters and collecting systems bilaterally appear somewhat prominent. Extrarenal pelvis configuration noted bilaterally. There is no demonstration of a bladder fistula to adjacent uterus or bowel or any other structure. The bladder wall appears smooth without thickening. Previously demonstrated air in the endometrial canal has resolved. Compression fracture deformities are noted within multiple lumbar and visualized thoracic vertebra. Bones are osteopenic. Moderate degenerative changes are noted. Impression: No evidence of a bladder fistula. Moderate to severe vesicoureteral reflux. Interval resolution of previously demonstrated air within the endometrial canal. Other incidental findings include multiple thoracolumbar vertebral body fractures, atherosclerotic vascular disease, gastrostomy, basal atelectasis, pericardial thickening versus small effusion, diverticulosis of the colon, anasarca. The CT scanner at [facility] is accredited by the [employer] and the scans are performed using protocols designed to limit radiation exposure to as low as reasonably achievable to attain images of sufficient resolution adequate for diagnostic evaluation.
[2016-10-11 16:08] VITALS: BP 96/47
--- NOTE | 2016-10-11 16:35 | Geriatric Progress Note ---
Assessment/Plan Problems: (1) Sacral decubitus ulcer, stage III (2) DEAN (acute kidney injury) (3) Sepsis (4) UTI (urinary tract infection) (5) Hypernatremia (6) Anxiety with somatization (7) Mitral regurgitation and aortic stenosis (8) Altered mental status (9) Chronic pain syndrome (10) Depression (11) Blindness (12) Vascular dementia (13) Volume depletion (14) Percutaneous endoscopic gastrostomy status (15) Hypophosphatemia (16) Hypomagnesemia (17) Leukocytosis, unspecified Assessment/Plan Leukocytosis slightly worse. Etiology unclear. Discussed with Dr. Ledezma. CT/cystogram reveals considerable reflux, but no fistula or stones. Bowel appears normal with no evidence of colitis or megacolon. Lung bases clear. Repeat urine C&S not suggestive of persistent infection. Skin lesions not appearing likely as sources. Continue Zosyn for now, I.D. consult requested. Given persistent lethargy, will d/c Nuedexta at this point. Will convert to Osmolite. Given ureteral reflux, will add cholinergic agent, d/c Lundberg. Discussed with: hospital staff Subjective Interval Events Patient remains quiet, with hypophonic response. Reports she is comfortable, but when asked if she has pain states pain all over. No diarrhea, no fever, bp running low but with normal heart rate. Today's labs revealed progressive leukocytosis, fairly normal chemistries. Hct low again. Urine C&S: NGTD. CT cystogram reveals no bladder fistula, B extrarenal pelvis with some distention. Stool in bowel with no evidence of distention. Lung bases clear. Subjective Still unable to elicit detailed responses. Geriatric Geriatric Last 24 Hour Vital Signs Date Time Temp Pulse Resp B/P Pulse Ox O2 Delivery O2 Flow Rate FiO2 10/11/16 12:00 98.4 96 22 95/47 98 Room Air 10/11/16 09:25 118 100/50 10/11/16 09:00 100/50 10/11/16 08:08 97.7 118 18 100/50 97 Room Air 10/11/16 07:20 104 10/11/16 04:00 97.5 120 22 121/41 97 Room Air 10/11/16 00:10 97.9 112 22 104/44 96 Room Air 5/5/17 20:59 106 102/58 10/10/16 20:00 97.0 106 22 102/58 95 Room Air 10/10/16 16:25 118 115/63 Intake and Output 10/10/16 10/11/16 19:00 07:00 Intake Total 850 ml 1235.0 ml Output Total 500 ml Balance 350 ml 1235.0 ml Free Water 130 ml 220 ml IV Total 355.0 ml Tube Feeding 720 ml 660 ml Output Urine Total 500 ml # Bowel Movements 1 Laboratory Tests Test 10/10/16 16:50 10/10/16 17:13 10/11/16 04:35 10/11/16 09:10 Urine Color Yellow Urine Appearance Slightly cloudy Urine pH 6 (4.5-8.0) Urine Specific [place] 1.010 (1.005-1.035) Urine Protein 2+ (NEGATIVE) H Urine Glucose (UA) Negative (NEGATIVE) Urine Ketones Negative (NEGATIVE) Urine Occult Blood 2+ (NEGATIVE) H Urine Nitrite Negative (NEGATIVE) Urine Bilirubin Negative (NEGATIVE) Urine Urobilinogen 8 MG/DL (0.0-1.0) H Urine Leukocyte Esterase 2+ (NEGATIVE) H Urine RBC 0-2 /HPF (0 - 2) Urine WBC 5-10 /HPF (0 - 2) H Urine Squamous Epithelial Cells None /LPF (NONE/OCC) Urine Bacteria Few /HPF (NONE) Urine Yeast Moderate /HPF (NONE) H White Blood Count 16.3 K/UL (4.8-10.8) H 18.6 K/UL (4.8-10.8) H Red Blood Count 3.83 M/UL (4.20-5.40) L 3.70 M/UL (4.20-5.40) L Hemoglobin 10.4 G/DL (12.0-16.0) L 9.2 G/DL (12.0-16.0) L Hematocrit 29.4 % (37.0-47.0) L 28.7 % (37.0-47.0) L Mean Corpuscular Volume 77 FL (80-99) L 78 FL (80-99) L Mean Corpuscular Hemoglobin 27.1 PG (27.0-31.0) 24.9 PG (27.0-31.0) L Mean Corpuscular Hemoglobin Concent 35.3 G/DL (32.0-36.0) 32.1 G/DL (32.0-36.0) Red Cell Distribution Width 13.7 % (11.6-14.8) 14.3 % (11.6-14.8) Platelet Count 371 K/UL (150-450) 427 K/UL (150-450) Mean Platelet Volume 7.8 FL (6.5-10.1) 7.4 FL (6.5-10.1) Neutrophils (%) (Auto) 77.4 % (45.0-75.0) H % (45.0-75.0) Lymphocytes (%) (Auto) 12.7 % (20.0-45.0) L % (20.0-45.0) Monocytes (%) (Auto) 8.6 % (1.0-10.0) % (1.0-10.0) Eosinophils (%) (Auto) 0.8 % (0.0-3.0) % (0.0-3.0) Basophils (%) (Auto) 0.5 % (0.0-2.0) % (0.0-2.0) Sodium Level 135 mEQ/L (135-145) 132 mEQ/L (135-145) L Potassium Level 4.5 mEQ/L (3.4-4.9) 5.3 mEQ/L (3.4-4.9) H Chloride Level 96 mEQ/L (98-107) L 96 mEQ/L (98-107) L Carbon Dioxide Level 24 mEQ/L (20-30) 21 mEQ/L (20-30) Anion Gap 15 (5-15) 15 (5-15) Blood Urea Nitrogen 23 mg/dL (7-23) 21 mg/dL (7-23) Creatinine 0.7 mg/dL (0.5-0.9) 0.6 mg/dL (0.5-0.9) Estimat Glomerular Filtration Rate mL/min (>60) mL/min (>60) Glucose Level 123 mg/dL (74-106) H 115 mg/dL (74-106) H Calcium Level 8.5 mg/dL (8.6-10.2) L 8.3 mg/dL (8.6-10.2) L Total Bilirubin 0.3 mg/dL (0.0-1.2) Aspartate Amino Transf (AST/SGOT) 55 U/L (5-40) H Alanine Aminotransferase (ALT/SGPT) 23 U/L (3-33) Alkaline Phosphatase 75 U/L (35-104) Total Protein 5.4 g/dL (6.6-8.7) L Albumin 2.4 g/dL (3.5-5.2) L Globulin 3.0 g/dL Albumin/Globulin Ratio 0.8 (1.0-2.7) L Differential Total Cells Counted 100 Neutrophils % (Manual) 77 % (45-75) H Lymphocytes % (Manual) 9 % (20-45) L Monocytes % (Manual) 5 % (1-10) Eosinophils % (Manual) 0 % (0-3) Basophils % (Manual) 0 % (0-2) Myelocytes % 4 % (0-0) H Band Neutrophils 5 % (0-8) Platelet Estimate Adequate Platelet Morphology Normal Polychromasia Occasional Hypochromasia 1+ Anisocytosis 1+ Microcytosis 1+ Current Medications Medications (Trade) Dose Ordered Sig/Patricia Route PRN Reason Start Time Stop Time Status Last Admin Dose Admin Acetaminophen (Tylenol) 650 mg Q4H PRN ORAL Mild Pain (Pain Scale 1-3) 10/08/16 00:00 11/07/16 00:00 10/10/16 09:38 Acetaminophen (Tylenol) 650 mg Q4H PRN ORAL T>100.5 10/08/16 00:00 11/07/16 00:00 Acetaminophen (Tylenol) 650 mg Q4H PRN RECTAL Mild Pain (Pain Scale 1-3) 10/08/16 00:00 11/07/16 00:00 10/09/16 18:09 Acetaminophen (Tylenol) 650 mg Q4H PRN RECTAL T>100.5 10/08/16 00:00 11/07/16 00:00 Benazepril HCl (Lotensin) 10 mg DAILY ORAL 10/09/16 09:00 11/08/16 08:59 Clotrimazole (Lotrimin) 1 applic EVERY 12 HOURS TOPIC 10/07/16 23:00 11/06/16 22:59 10/11/16 09:25 Dextromethorphan/ Quinidine (Nuedexta Capsule) 1 cap Q12HR GT 10/08/16 09:00 11/07/16 08:59 10/11/16 09:24 Dextrose (Dextrose 50%) STAT PRN IV Hypoglycemia 10/08/16 16:30 11/07/16 16:29 Docusate Sodium (Colace) 100 mg Q12HR PRN GT Constipation 10/07/16 22:15 11/06/16 22:14 Duloxetine HCl (Cymbalta) 30 mg DAILY ORAL 10/08/16 09:00 11/07/16 08:59 10/11/16 09:24 Fluticasone Propionate (Flonase) 1 spray TWICE A DAY NASAL 10/08/16 09:00 11/07/16 08:59 10/11/16 09:24 Heparin Sodium (Porcine) (Heparin 5000 units/ml) 5,000 units EVERY 12 HOURS SUBQ 10/08/16 09:00 11/07/16 08:59 10/11/16 09:29 Latanoprost (Xalatan) 1 drop BEDTIME BOTH EYES 10/08/16 23:00 11/07/16 22:59 10/10/16 20:58 Levothyroxine Sodium (Synthroid) 88 mcg ACBREAKFAST GT 10/08/16 06:30 11/07/16 06:29 10/11/16 06:21 Lidocaine 1 patch 1 patch DAILY TDERMAL 10/09/16 14:00 11/08/16 13:59 10/11/16 09:25 Metoprolol Tartrate (Lopressor) 12.5 mg Q12HR GT 10/08/16 21:00 11/07/16 20:59 10/11/16 09:25 Pantoprazole (Protonix) 40 mg DAILY IV 10/08/16 09:00 11/07/16 08:59 10/11/16 10:22 Patient Own Medication (Patient's Own Med) 1 ea DAILY ORAL 10/08/16 09:00 11/07/16 08:59 10/11/16 09:24 Piperacillin Sod/ Tazobactam Sod/ Dextrose (Zosyn/D5W) 110 ml @ 27.5 mls/hr Q8HR IVPB 10/11/16 22:00 10/18/16 21:59 Sodium Chloride 1,000 ml @ 75 mls/hr [id number] IV 10/10/16 16:45 11/09/16 16:44 10/10/16 19:13 Tamsulosin HCl (Flomax) 0.4 mg BEDTIME GT 10/07/16 23:00 11/06/16 22:59 10/10/16 20:59 Height (Feet): 5 Height (Inches): 2.00 Weight (Pounds): 130 General Appearance: lethargic, other - hypophoni Head: normocephalic Eyes: bilateral anicteric Neck: no mass Respiratory: lungs clear Cardiovascular: regular rate, rhythm Gastrointestinal: normal bowel sounds, soft, no mass, no organomegaly, non- distended, no guarding, tenderness - c/o mild generalized tenderness with palpation, no guarding. Musculoskeletal: no calf tenderness Edema: no edema noted Generalized Neurologic: no new focality Skin: wounds - new pictures reviewed. Buttocks primarily appear to be MASD, R trochanter looks like possible DTI. KERRI GUILLEN October 11, 2016 16:35
--- NOTE | 2016-10-11 17:57 | General Progress Note ---
Assessment/Plan Assessment/Plan Assessment - Poor po --> PEG - dehydration, hypernatremia - anemia - UTI - Azotemia - improved - Leukocytosis Recommendation - Tube feeds - IVF - Abx - follow labs - ? ID eval - re check WBC Subjective Allergies: Coded Allergies: NO KNOWN ALLERGIES (Unverified Allergy, Unknown, 03/22/15) Subjective Awake minimally interactive s/p PEG tolerating TF WBC climbing d/w PMD and RN Objective Last 24 Hour Vital Signs Date Time Temp Pulse Resp B/P Pulse Ox O2 Delivery O2 Flow Rate FiO2 10/11/16 16:08 97.3 120 20 96/47 95 Room Air 10/11/16 12:00 98.4 96 22 95/47 98 Room Air 10/11/16 09:25 118 100/50 10/11/16 09:00 100/50 10/11/16 08:08 97.7 118 18 100/50 97 Room Air 10/11/16 07:20 104 10/11/16 04:00 97.5 120 22 121/41 97 Room Air 10/11/16 00:10 97.9 112 22 104/44 96 Room Air 10/10/16 20:59 106 102/58 10/10/16 20:00 97.0 106 22 102/58 95 Room Air Intake and Output 10/10/16 10/11/16 19:00 07:00 Intake Total 850 ml 1235.0 ml Output Total 500 ml Balance 350 ml 1235.0 ml Free Water 130 ml 220 ml IV Total 355.0 ml Tube Feeding 720 ml 660 ml Output Urine Total 500 ml # Bowel Movements 1 Laboratory Tests 10/11/16 04:35: Sodium Level 132L, Potassium Level 5.3H, Chloride Level 96L, Carbon Dioxide Level 21, Anion Gap 15, Blood Urea Nitrogen 21, Creatinine 0.6, Estimat Glomerular Filtration Rate , Glucose Level 115H, Calcium Level 8.3L, Total Bilirubin 0.3, Aspartate Amino Transf (AST/SGOT) 55H, Alanine Aminotransferase ( ALT/SGPT) 23, Alkaline Phosphatase 75, Total Protein 5.4L, Albumin 2.4L, Globulin 3.0, Albumin/Globulin Ratio 0.8L 10/11/16 06:00: Sodium Level [Pending], Potassium Level [Pending], Chloride Level [Pending], Carbon Dioxide Level [Pending], Blood Urea Nitrogen [Pending], Creatinine [ Pending], Estimat Glomerular Filtration Rate [Pending], Glucose Level [Pending] , Calcium Level [Pending] 10/11/16 09:10: White Blood Count 18.6H, Red Blood Count 3.70L, Hemoglobin 9.2L, Hematocrit 28.7L, Mean Corpuscular Volume 78L, Mean Corpuscular Hemoglobin 24.9L, Mean Corpuscular Hemoglobin Concent 32.1, Red Cell Distribution Width 14.3, Platelet Count 427, Mean Platelet Volume 7.4, Neutrophils (%) (Auto) , Lymphocytes (%) ( Auto) , Monocytes (%) (Auto) , Eosinophils (%) (Auto) , Basophils (%) (Auto) , Differential Total Cells Counted 100, Neutrophils % (Manual) 77H, Lymphocytes % (Manual) 9L, Monocytes % (Manual) 5, Eosinophils % (Manual) 0, Basophils % ( Manual) 0, Myelocytes % 4H, Band Neutrophils 5, Platelet Estimate Adequate, Platelet Morphology Normal, Polychromasia Occasional, Hypochromasia 1+, Anisocytosis 1+, Microcytosis 1+ Height (Feet): 5 Height (Inches): 2.00 Weight (Pounds): 130 Objective Thin elderly WW NCAT supple CTA RRR abd soft ND NT, (+)GT, wound OK no edema OBS ASHWINI MORRIS October 11, 2016 17:57
[2016-10-11] MEDS: Bethanechol 10mg Tab ORAL SCH ×2 (18:09→20:31)
--- NOTE | 2016-10-11 19:08 | Infectious Diseases Prog Note ---
Assessment/Plan Assessment/Plan Full consult dictated: A) 1) esbl e.coli uti, leukocytosis, tachycardia, ? sepsis 2) fungemia risk, no diarrhea to suggest c.diff., ct scan abdomen and pelvis without abscess and no colitis mentioned on ct 3) s/p g-tube, dysphagia, atx, anemia, wounds noted and unlikely leukocytosis source 4) arthralgia, mur, as, depression, cps, anxiety, blindness, dementia, vesicoureteral reflux, alms, hemorrhoids 5) hypothyroidism, dyslipidemia, htn, gerd, compression fx, sleep apnea, glaucoma, encephalopathy, op, fx 6) allergies - negative, fh-nc, sh-negative, mar noted, notes and records reviewed 7) d/w Dr. Stanley P) 1) change to meropenem (carbapenems drug of choice for esbl and intermediate to zosyn) 2) add diflucan to cover possible fungemia 3) check bc, uc, labs, chest x-ray, check c.diff. if has diarrhea 4) wound care per protocol 5) continue other treatment per Dr. Stanley and consultants 6) orders noted and entered 7) d/w Dr. Stanley 8) d/w pharmacy 9) thank you Subjective Allergies: Coded Allergies: NO KNOWN ALLERGIES (Unverified Allergy, Unknown, 03/22/15) Objective Vital Signs Last 24 Hour Vital Signs Date Time Temp Pulse Resp B/P Pulse Ox O2 Delivery O2 Flow Rate FiO2 10/11/16 16:08 97.3 120 20 96/47 95 Room Air 10/11/16 12:00 98.4 96 22 95/47 98 Room Air 10/11/16 09:25 118 100/50 10/11/16 09:00 100/50 10/11/16 08:08 97.7 118 18 100/50 97 Room Air 10/11/16 07:20 104 10/11/16 04:00 97.5 120 22 121/41 97 Room Air 10/11/16 00:10 97.9 112 22 104/44 96 Room Air 10/10/16 20:59 106 102/58 10/10/16 20:00 97.0 106 22 102/58 95 Room Air Height (Feet): 5 Height (Inches): 2.00 Weight (Pounds): 130 Microbiology Date/Time Source Procedure Growth Status 10/10/16 16:50 Urine,Clean Catch Urine Culture - Preliminary NO GROWTH Resulted Laboratory Tests Test 10/11/16 04:35 10/11/16 06:00 10/11/16 09:10 Sodium Level 132 mEQ/L (135-145) L Pending Potassium Level 5.3 mEQ/L (3.4-4.9) H Pending Chloride Level 96 mEQ/L (98-107) L Pending Carbon Dioxide Level 21 mEQ/L (20-30) Pending Anion Gap 15 (5-15) Blood Urea Nitrogen 21 mg/dL (7-23) Pending Creatinine 0.6 mg/dL (0.5-0.9) Pending Estimat Glomerular Filtration Rate mL/min (>60) Pending Glucose Level 115 mg/dL (74-106) H Pending Calcium Level 8.3 mg/dL (8.6-10.2) L Pending Total Bilirubin 0.3 mg/dL (0.0-1.2) Aspartate Amino Transf (AST/SGOT) 55 U/L (5-40) H Alanine Aminotransferase (ALT/SGPT) 23 U/L (3-33) Alkaline Phosphatase 75 U/L (35-104) Total Protein 5.4 g/dL (6.6-8.7) L Albumin 2.4 g/dL (3.5-5.2) L Globulin 3.0 g/dL Albumin/Globulin Ratio 0.8 (1.0-2.7) L White Blood Count 18.6 K/UL (4.8-10.8) H Red Blood Count 3.70 M/UL (4.20-5.40) L Hemoglobin 9.2 G/DL (12.0-16.0) L Hematocrit 28.7 % (37.0-47.0) L Mean Corpuscular Volume 78 FL (80-99) L Mean Corpuscular Hemoglobin 24.9 PG (27.0-31.0) L Mean Corpuscular Hemoglobin Concent 32.1 G/DL (32.0-36.0) Red Cell Distribution Width 14.3 % (11.6-14.8) Platelet Count 427 K/UL (150-450) Mean Platelet Volume 7.4 FL (6.5-10.1) Neutrophils (%) (Auto) % (45.0-75.0) Lymphocytes (%) (Auto) % (20.0-45.0) Monocytes (%) (Auto) % (1.0-10.0) Eosinophils (%) (Auto) % (0.0-3.0) Basophils (%) (Auto) % (0.0-2.0) Differential Total Cells Counted 100 Neutrophils % (Manual) 77 % (45-75) H Lymphocytes % (Manual) 9 % (20-45) L Monocytes % (Manual) 5 % (1-10) Eosinophils % (Manual) 0 % (0-3) Basophils % (Manual) 0 % (0-2) Myelocytes % 4 % (0-0) H Band Neutrophils 5 % (0-8) Platelet Estimate Adequate Platelet Morphology Normal Polychromasia Occasional Hypochromasia 1+ Anisocytosis 1+ Microcytosis 1+ Current Medications Medications (Trade) Dose Ordered Sig/Patricia Route PRN Reason Start Time Stop Time Status Last Admin Dose Admin Acetaminophen (Tylenol) 650 mg Q4H PRN ORAL Mild Pain (Pain Scale 1-3) 10/08/16 00:00 11/07/16 00:00 10/10/16 09:38 Acetaminophen (Tylenol) 650 mg Q4H PRN ORAL T>100.5 10/08/16 00:00 11/07/16 00:00 Acetaminophen (Tylenol) 650 mg Q4H PRN RECTAL Mild Pain (Pain Scale 1-3) 10/08/16 00:00 11/07/16 00:00 10/09/16 18:09 Acetaminophen (Tylenol) 650 mg Q4H PRN RECTAL T>100.5 10/08/16 00:00 11/07/16 00:00 Bethanechol Chloride (Urecholine) 10 mg FOUR TIMES A DAY ORAL 10/11/16 18:00 11/10/16 17:59 10/11/16 18:09 Clotrimazole (Lotrimin) 1 applic EVERY 12 HOURS TOPIC 10/07/16 23:00 11/06/16 22:59 10/11/16 09:25 Dextrose (Dextrose 50%) STAT PRN IV Hypoglycemia 10/08/16 16:30 11/07/16 16:29 Docusate Sodium (Colace) 100 mg Q12HR PRN GT Constipation 10/07/16 22:15 11/06/16 22:14 Duloxetine HCl (Cymbalta) 30 mg DAILY ORAL 10/08/16 09:00 11/07/16 08:59 10/11/16 09:24 Fluticasone Propionate (Flonase) 1 spray TWICE A DAY NASAL 10/08/16 09:00 11/07/16 08:59 10/11/16 18:09 Heparin Sodium (Porcine) (Heparin 5000 units/ml) 5,000 units EVERY 12 HOURS SUBQ 10/08/16 09:00 11/07/16 08:59 10/11/16 09:29 Latanoprost (Xalatan) 1 drop BEDTIME BOTH EYES 10/08/16 23:00 11/07/16 22:59 10/10/16 20:58 Levothyroxine Sodium (Synthroid) 88 mcg ACBREAKFAST GT 10/08/16 06:30 11/07/16 06:29 10/11/16 06:21 Lidocaine 1 patch 1 patch DAILY TDERMAL 10/09/16 14:00 11/08/16 13:59 10/11/16 09:25 Metoprolol Tartrate (Lopressor) 12.5 mg Q12HR GT 10/08/16 21:00 11/07/16 20:59 10/11/16 09:25 Pantoprazole (Protonix) 40 mg DAILY IV 10/08/16 09:00 11/07/16 08:59 10/11/16 10:22 Patient Own Medication (Patient's Own Med) 1 ea DAILY ORAL 10/08/16 09:00 11/07/16 08:59 10/11/16 09:24 Piperacillin Sod/ Tazobactam Sod/ Dextrose (Zosyn/D5W) 110 ml @ 27.5 mls/hr Q8HR IVPB 10/11/16 22:00 10/18/16 21:59 Sodium Chloride 1,000 ml @ 75 mls/hr [id number] IV 10/10/16 16:45 11/09/16 16:44 10/11/16 18:10 Tamsulosin HCl (Flomax) 0.4 mg BEDTIME GT 10/07/16 23:00 11/06/16 22:59 10/10/16 20:59 DAVIS WEINER October 11, 2016 19:08
[2016-10-11 20:12] VITALS: BP 104/53
[2016-10-11 20:21] LABS: ANION GAP 14 (5-15); CALCIUM 8.6 mg/dL (8.6-10.2); CARBON DIOXIDE 22 mEQ/L (20-30); CHLORIDE 95 mEQ/L (98-107); CREATININE 0.6 mg/dL (0.5-0.9); HEMOLYSIS 26; POTASSIUM 4.8 mEQ/L (3.4-4.9); SODIUM 131 mEQ/L (135-145)
[2016-10-11] MEDS: Tamsulosin 0.4mg cap GT SCH (20:31)
[2016-10-11] MEDS ORDERED: Piperacillin/Tazobactam 3.375 GM in D5W 110 ML IVPB SCH (22:00)
[2016-10-12 00:17] VITALS: BP 98/50
[2016-10-12 04:48] VITALS: BP 113/52
--- NOTE | 2016-10-12 06:28 | Consultation ---
DATE OF CONSULTATION: 10/11/2016 INFECTIOUS DISEASES CONSULTATION CONSULTING PHYSICIAN: Jenni Suarez M.D. ATTENDING PHYSICIAN: Alexey Stanley M.D. REASON FOR CONSULTATION: ESBL E. coli UTI, possible sepsis, and leukocytosis. CHIEF COMPLAINT: The patient's chief complaint coming in is weakness and failure to thrive. HISTORY OF PRESENT ILLNESS: This is a 81-year-old female who has a history of recurrent UTI and sepsis in the past. The patient has multiple medical problems. The patient is admitted to [facility] with weakness and failure to thrive. The patient is a poor historian. She also had poor oral intake and volume depletion and altered mental status. The patient had a urine culture, which showed ESBL E. coli. It was sensitive to carbapenems and intermediate to Zosyn, which the patient is on. The patient has worsening leukocytosis and today, the white count is 18.6 and yesterday, it was 16.3. The patient was recently cultured with urine culture negative from 10/10/2016 and blood cultures pending. Chest x-ray showed atelectasis. The patient has no diarrhea at this time. Infectious Disease consultation is requested for further antibiotic management. Blood cultures are pending. The patient will be placed on meropenem and Diflucan. CT scan of the abdomen and pelvis showed no abscess or evidence of colitis such as bowel wall thickening. She does have a vesicoureteral reflux noted on CT scan. Case was discussed with Dr. Stanley and the RN. MAR was noted. Orders were noted. Notes and records were reviewed. PAST MEDICAL HISTORY: The patient's past medical history includes the history of following: The patient has failure to thrive and dysphagia. She is status post G-tube. She has a history of UTI and sepsis. She has atelectasis and anemia. She has wounds. She has a history of arthralgia, mitral regurgitation, aortic stenosis, depression, chronic pain syndrome, anxiety, blindness, dementia, vesicoureteral reflux on CT scan, altered mental status, hemorrhoids, history of hypothyroidism, dyslipidemia, essential hypertension, dyslipidemia, GERD, compression fractures, osteoporosis, sleep apnea, glaucoma, and encephalopathy. Please see past medical history in medical order. MEDICATIONS: Upon reviewing the MAR, the patient is on the following medications: She was on Zosyn. I switched her to meropenem. She is on Diflucan. She is on urecholine and lidocaine. She was on benazepril, this has been discontinued it looks like. She is on Xalatan and Lopressor. She is on Cymbalta, Flonase, and heparin. She is on Protonix, Synthroid, Tylenol, acetaminophen, Flomax, and Colace. Please see medications in medical order. ALLERGIES: She has no known drug allergies. SOCIAL HISTORY: Per the records, no mention of smoking, alcohol, or drug abuse. FAMILY HISTORY: Per the records, no mention of exposure to tuberculosis or cancer. REVIEW OF SYSTEMS: Constitutional: The patient has no central line. No Lundberg. She has a peripheral line. She has generalized weakness and fatigue. No fever or chills. She is responsive, but seems to be confused and altered mental status. Head And Neck: She has no obvious head pain or neck pain. Limited review of systems there. Cardiac: She is not on pressors. Gastrointestinal: No nausea, vomiting, or diarrhea. She has not had her bowel movement per nursing staff. Pulmonary: She has no significant congestion or shortness of breath. Skin: No rash. She is a poor historian otherwise. Neurologic: No seizures. Genitourinary: She has no Lundberg. PHYSICAL EXAMINATION: VITAL SIGNS: Temperature 97.3 degrees, pulse rate 120, respiratory rate 20, blood pressure 96/47, and saturation 95% on room air. GENERAL: Weak, but is responsive. She is a poor historian. No acute distress. HEAD AND NECK: Oral exam, no thrush. Normocephalic. No facial droop. No neck stiffness. LUNGS: Few bilaterally rhonchi. Decreased breath sounds. No obvious or rales. HEART: Regular. Tachycardic. No rubs, gallop, or murmur. No friction rub. ABDOMEN: Soft. Positive bowel sounds. Nontender. G-tube site is clean and intact. SKIN: No rash or dermatitis. MUSCULOSKELETAL: Positive for contractures of lower extremities. Legs are without cellulitis. PERIPHERAL VASCULAR: No cyanosis or gangrene. GENITOURINARY: She has no Lundberg. LINES: Line sites without phlebitis. She has peripheral IV. No central line. NEUROLOGIC: Nonfocal to me, but limited exam. Generalized weakness, responsive, and seems to be confused with altered mental status. RECTAL: Deferred. She has no rectal tube. PELVIC: Deferred. BREASTS: Deferred. LABORATORY DATA: White count is 18.6, hemoglobin 9.2, and platelet count is 427,000. White count was 16.3 yesterday and on admission, 15.5. Creatinine is 0.6. Sodium 132. LFTs were noted. UA had 2+ leukocyte esterase, 5 to 10 white blood cells, and yeast also. IMAGING: Chest x-ray shows atelectasis of the left lung base with possible pleural effusion. This was noted and reviewed. CT scan report was reviewed. There is no mention of intraabdominal abscess or findings of colitis such as thickened colon or bowel. She does have vesicoureteral reflux noted and vertebral body fractures. MICROBIOLOGY: Cultures are pending such as blood culture. C. difficile is ordered, but in the initial urine culture was sensitive to amikacin, was ESBL, sensitive to carbapenems and intermediate to Zosyn. ASSESSMENT AND PLAN: 1. The patient has extended-spectrum beta-lactamases Escherichia coli urinary tract infection and she has mild leukocytosis, tachycardiac, and questionable sepsis, possible systemic inflammatory response syndrome secondary to sepsis. She has no diarrhea to suggest Clostridium difficile and her CT scan of the abdomen and pelvis showed no abscess or findings that were consistent with colitis of some type. She certainly is at rest for fungemia at this time. She does have yeast in the urine and she has been on multiple antibiotic courses. The patient's extended-spectrum beta-lactamases was intermediate to Zosyn. The drug of choice for extended-spectrum beta-lactamases infections are carbapenems. We will switch the antibiotics to meropenem and Diflucan for fungemia coverage pending culture results. We will check final blood culture, urine culture, and check followup chest x-ray. If she has diarrhea, we will check Clostridium difficile and add Flagyl if medically indicated. Continue meropenem and Diflucan now pending workup. 2. She has wounds that do not look acutely infected. I do not think this is the source of the elevated white count. Continue wound care protocol. These were noted and reviewed. 3. She has failure to thrive, poor oral intake, and status post gastrostomy tube. She has dysphagia. 4. Atelectasis. 5. Anemia. 6. Wound care protocol. 7. Arthralgia, osteoporosis, and fracture history. 8. Mitral regurgitation with aortic stenosis. 9. Depression. 10. Chronic pain syndrome. 11. Anxiety. 12. . 13. Dementia. 14. Vesicoureteral reflux. 15. Altered mental status. 16. . 17. Hemorrhoids. 18. Hypothyroidism. The patient is on Synthroid. 19. Dyslipidemia. 20. Hypertension. Continue blood pressure control per Dr. Stanley. 21. Gastroesophageal reflux disease. 22. Compression fractures. 23. Sleep apnea. 24. Glaucoma. 25. History of encephalopathy. 26. History of urinary tract infection and sepsis. 27. Allergies are negative. 28. Family history is noncontributory. 29. Social history is negative. 30. MAR was noted. 31. Notes and records were reviewed. 32. Continue treatment per Dr. Stanley and consultants. 33. Case was discussed with Dr. Stanley. 34. Case was discussed with pharmacy. 35. Case was discussed with RN. Jenni Suarez M.D. DR: LUIS E JOB#: [id number] CC:
[2016-10-12 06:50] LABS: BASOPHILS % (AUTO) 0.5 % (0.0-2.0); EOSINOPHILS % (AUTO) 0.6 % (0.0-3.0); MEAN CORPUSCULAR HEMOGLOBIN 24.9 PG (27.0-31.0); MEAN CORPUSCULAR HGB CONC 32.1 G/DL (32.0-36.0); MEAN CORPUSCULAR VOLUME 78 FL (80-99); MEAN PLATELET VOLUME 7.1 FL (6.5-10.1); MONOCYTES % (AUTO) 10.6 % (1.0-10.0); NEUTROPHILS % (AUTO) 73.4 % (45.0-75.0); PLATELET COUNT 404 K/UL (150-450); RED BLOOD COUNT 3.62 M/UL (4.20-5.40); RED CELL DISTRIBUTION WIDTH 14.6 % (11.6-14.8); WHITE BLOOD COUNT 15.6 K/UL (4.8-10.8)
[2016-10-12 08:00] VITALS: BP 111/47
[2016-10-12] MEDS: Flonase Nasal Inhaler 16gm NASAL SCH ×2 (08:51→17:51)
[2016-10-12] MEDS: NUPLAZID 17 MG ORAL SCH (08:52)
[2016-10-12] MEDS: Bethanechol 10mg Tab ORAL SCH ×4 (08:58→20:16)
[2016-10-12] MEDS: DULoxetine 30mg cap ORAL SCH (08:59)
[2016-10-12] MEDS: Metoprolol Tartrate 12.5mg TAB GT SCH ×2 (09:00→20:16)
[2016-10-12] MEDS: Heparin 5000 units/ml inj SUBQ SCH ×2 (09:03→20:22)
[2016-10-12] MEDS: Pantoprazole Inj IV SCH (10:32)
[2016-10-12 12:00] VITALS: BP 116/60
--- NOTE | 2016-10-12 12:12 | Diagnostic Imaging Report ---
Indication: Chest pain Comparison: 10/09/16 A single view chest radiograph was obtained. Findings: Lung volumes are low. Heart size is stable. Calcified mitral annulus, calcified aorta, generalized osteopenia demonstrated. Impression: No acute disease identified within the chest.
--- NOTE | 2016-10-12 15:50 | Geriatric Progress Note ---
Assessment/Plan Problems: (1) Sacral decubitus ulcer, stage III (2) DEAN (acute kidney injury) (3) Sepsis (4) UTI (urinary tract infection) (5) Hypernatremia (6) Anxiety with somatization (7) Mitral regurgitation and aortic stenosis (8) Altered mental status (9) Chronic pain syndrome (10) Depression (11) Blindness (12) Vascular dementia (13) Volume depletion (14) Percutaneous endoscopic gastrostomy status (15) Hypophosphatemia (16) Hypomagnesemia (17) Leukocytosis, unspecified Assessment/Plan Slightly more alert, leukocytosis slightly better. Bp improved but still tends on low side. Response to combination of antibiotic change and behvioral and urologic med changes. Given response continue current approach. With voiding on Bethanechol, will d/c Tamsulosin, hope for better bp. Discussed d/c planning with staff. Discussed with: hospital staff Subjective Interval Events Patient minimally more alert, denies specific c/o including pain. Seen by Dr. Suarez, with substitution of Meropenem for Zosyn, addition of Diflucan with some improvement in leukocytosis. Tolerating d/c of Lundberg, although staff reports persistent incontinence. Repeat CXR with NAD. Dtr reportedly still concerned about confusion/psychosis asks about Changing back to Abilify, but if more agitation, would consider reinstituting Nuedexta and/or increasing Nuplazid dose. Subjective Still unable to elicit detailed responses. Geriatric Geriatric Last 24 Hour Vital Signs Date Time Temp Pulse Resp B/P Pulse Ox O2 Delivery O2 Flow Rate FiO2 10/12/16 12:00 98.1 92 18 116/60 97 Room Air 10/12/16 09:00 109 111/47 10/12/16 08:00 96.0 109 18 111/47 97 Room Air 10/12/16 04:50 97 Room Air 10/12/16 04:48 97.7 110 20 113/52 Room Air 10/12/16 00:17 97.9 112 21 98/50 98 Room Air 10/11/16 20:32 104 104/53 10/11/16 20:12 97.7 104 16 104/53 97 Room Air 10/11/16 16:08 97.3 120 20 96/47 95 Room Air Intake and Output 10/11/16 10/12/16 19:00 07:00 Intake Total 1940.0 ml 1825 ml Balance 1940.0 ml 1825 ml Intake Oral 1200 ml Free Water 160 ml 100 ml IV Total 110.0 ml 1175 ml Tube Feeding 470 ml 550 ml Laboratory Tests Test 10/12/16 06:05 White Blood Count 15.6 K/UL (4.8-10.8) H Red Blood Count 3.62 M/UL (4.20-5.40) L Hemoglobin 9.0 G/DL (12.0-16.0) L Hematocrit 28.1 % (37.0-47.0) L Mean Corpuscular Volume 78 FL (80-99) L Mean Corpuscular Hemoglobin 24.9 PG (27.0-31.0) L Mean Corpuscular Hemoglobin Concent 32.1 G/DL (32.0-36.0) Red Cell Distribution Width 14.6 % (11.6-14.8) Platelet Count 404 K/UL (150-450) Mean Platelet Volume 7.1 FL (6.5-10.1) Neutrophils (%) (Auto) 73.4 % (45.0-75.0) Lymphocytes (%) (Auto) 15.0 % (20.0-45.0) L Monocytes (%) (Auto) 10.6 % (1.0-10.0) H Eosinophils (%) (Auto) 0.6 % (0.0-3.0) Basophils (%) (Auto) 0.5 % (0.0-2.0) Current Medications Medications (Trade) Dose Ordered Sig/Patricia Route PRN Reason Start Time Stop Time Status Last Admin Dose Admin Acetaminophen (Tylenol) 650 mg Q4H PRN ORAL Mild Pain (Pain Scale 1-3) 10/08/16 00:00 11/07/16 00:00 10/10/16 09:38 Acetaminophen (Tylenol) 650 mg Q4H PRN ORAL T>100.5 10/08/16 00:00 11/07/16 00:00 Acetaminophen (Tylenol) 650 mg Q4H PRN RECTAL Mild Pain (Pain Scale 1-3) 10/08/16 00:00 11/07/16 00:00 10/09/16 18:09 Acetaminophen (Tylenol) 650 mg Q4H PRN RECTAL T>100.5 10/08/16 00:00 11/07/16 00:00 Bethanechol Chloride 10 mg 10 mg FOUR TIMES A DAY ORAL 10/11/16 18:00 11/10/16 17:59 10/12/16 14:13 Clotrimazole (Lotrimin) 1 applic EVERY 12 HOURS TOPIC 10/07/16 23:00 11/06/16 22:59 10/12/16 08:58 Dextrose (Dextrose 50%) STAT PRN IV Hypoglycemia 10/08/16 16:30 11/07/16 16:29 Docusate Sodium (Colace) 100 mg Q12HR PRN GT Constipation 10/07/16 22:15 11/06/16 22:14 Duloxetine HCl (Cymbalta) 30 mg DAILY ORAL 10/08/16 09:00 11/07/16 08:59 10/12/16 08:59 Fluconazole/ Sodium Chloride (Diflucan 200mg/ 100ml Premix) 100 ml @ 100 mls/hr Q24H IV 10/11/16 20:00 10/18/16 19:59 10/11/16 20:32 Fluticasone Propionate (Flonase) 1 spray TWICE A DAY NASAL 10/08/16 09:00 11/07/16 08:59 10/12/16 08:51 Heparin Sodium (Porcine) (Heparin 5000 units/ml) 5,000 units EVERY 12 HOURS SUBQ 10/08/16 09:00 11/07/16 08:59 10/12/16 09:03 Latanoprost (Xalatan) 1 drop BEDTIME BOTH EYES 10/08/16 23:00 11/07/16 22:59 10/11/16 20:32 Levothyroxine Sodium (Synthroid) 88 mcg ACBREAKFAST GT 10/08/16 06:30 11/07/16 06:29 10/12/16 06:10 Lidocaine 1 patch 1 patch DAILY TDERMAL 10/09/16 14:00 11/08/16 13:59 10/12/16 08:51 Meropenem 1 gm/ Sodium Chloride 100 ml @ 200 mls/hr Q12H IVPB 10/11/16 21:00 10/16/16 20:59 10/12/16 10:32 Metoprolol Tartrate (Lopressor) 12.5 mg Q12HR GT 10/08/16 21:00 11/07/16 20:59 10/12/16 09:00 Pantoprazole (Protonix) 40 mg DAILY IV 10/08/16 09:00 11/07/16 08:59 10/12/16 10:32 Patient Own Medication (Patient's Own Med) 1 ea DAILY ORAL 10/08/16 09:00 11/07/16 08:59 10/12/16 08:52 Sodium Chloride (Sodium Chloride 1000ml bag) 1,000 ml @ 75 mls/hr [id number] IV 10/10/16 16:45 11/09/16 16:44 10/12/16 08:58 Tamsulosin HCl (Flomax) 0.4 mg BEDTIME GT 10/07/16 23:00 11/06/16 22:59 10/11/16 20:31 Height (Feet): 5 Height (Inches): 2.00 Weight (Pounds): 130 General Appearance: alert Head: normocephalic Eyes: bilateral anicteric ENT: normal voice Neck: no mass Respiratory: decreased breath sounds Cardiovascular: regular rate, rhythm Gastrointestinal: normal bowel sounds, non tender, soft, no mass, no organomegaly, non-distended Musculoskeletal: no calf tenderness Edema: no edema noted Generalized Neurologic: no new focality KERRI GUILLEN October 12, 2016 15:50
[2016-10-12 16:01] VITALS: BP 112/59
[2016-10-12] MEDS ORDERED: NS 275ml ONE (16:18)
[2016-10-12] MEDS ORDERED: Tubing IV Secondary IV ONE (16:18)
--- NOTE | 2016-10-12 16:36 | General Progress Note ---
Assessment/Plan Assessment/Plan Assessment - Poor po --> PEG - dehydration, hypernatremia - anemia - UTI - Azotemia - improved - Leukocytosis - AMS - ? toxic metabolic Recommendation - Tube feeds - IVF - Abx - follow labs - ? Neuro eval - recheck swallow eval in am, per family request - follow WBC Subjective Allergies: Coded Allergies: NO KNOWN ALLERGIES (Unverified Allergy, Unknown, 03/22/15) Subjective d/w DTR and niece at length all questions answered they want pt mental status to be back to prior baseline they want patient to eat by mouth Objective Last 24 Hour Vital Signs Date Time Temp Pulse Resp B/P Pulse Ox O2 Delivery O2 Flow Rate FiO2 10/12/16 12:00 98.1 92 18 116/60 97 Room Air 10/12/16 09:00 109 111/47 10/12/16 08:00 96.0 109 18 111/47 97 Room Air 10/12/16 04:50 97 Room Air 10/12/16 04:48 97.7 110 20 113/52 Room Air 10/12/16 00:17 97.9 112 21 98/50 98 Room Air 10/11/16 20:32 104 104/53 10/11/16 20:12 97.7 104 16 104/53 97 Room Air 10/11/16 16:08 97.3 120 20 96/47 95 Room Air Intake and Output 10/11/16 10/12/16 19:00 07:00 Intake Total 1940.0 ml 1825 ml Balance 1940.0 ml 1825 ml Intake Oral 1200 ml Free Water 160 ml 100 ml IV Total 110.0 ml 1175 ml Tube Feeding 470 ml 550 ml Laboratory Tests 10/12/16 06:05: White Blood Count 15.6H, Red Blood Count 3.62L, Hemoglobin 9.0L, Hematocrit 28.1L, Mean Corpuscular Volume 78L, Mean Corpuscular Hemoglobin 24.9L, Mean Corpuscular Hemoglobin Concent 32.1, Red Cell Distribution Width 14.6, Platelet Count 404, Mean Platelet Volume 7.1, Neutrophils (%) (Auto) 73.4, Lymphocytes (% ) (Auto) 15.0L, Monocytes (%) (Auto) 10.6H, Eosinophils (%) (Auto) 0.6, Basophils (%) (Auto) 0.5 Height (Feet): 5 Height (Inches): 2.00 Weight (Pounds): 130 Objective Thin elderly WW NCAT supple CTA RRR abd soft ND NT, (+)GT, wound OK, no discharge no edema OBS ASHWINI MORRIS October 12, 2016 16:36
[2016-10-12 20:06] VITALS: BP 112/53
[2016-10-13] VITALS (7 sets, daily range): BP systolic 100–121; BP diastolic 47–74
[2016-10-13 08:00] LABS: BASOPHILS % (AUTO) 0.4 % (0.0-2.0); EOSINOPHILS % (AUTO) 0.4 % (0.0-3.0); LYMPHOCYTES % (AUTO) 12.5 % (20.0-45.0); MEAN CORPUSCULAR HEMOGLOBIN 24.8 PG (27.0-31.0); MEAN CORPUSCULAR HGB CONC 31.8 G/DL (32.0-36.0); MEAN CORPUSCULAR VOLUME 78 FL (80-99); MEAN PLATELET VOLUME 6.3 FL (6.5-10.1); MONOCYTES % (AUTO) 9.9 % (1.0-10.0); NEUTROPHILS % (AUTO) 76.8 % (45.0-75.0); PLATELET COUNT 438 K/UL (150-450); RED BLOOD COUNT 3.41 M/UL (4.20-5.40); RED CELL DISTRIBUTION WIDTH 14.9 % (11.6-14.8); WHITE BLOOD COUNT 13.3 K/UL (4.8-10.8)
[2016-10-13 08:11] LABS: ANION GAP 14 (5-15); CALCIUM 8.8 mg/dL (8.6-10.2); CARBON DIOXIDE 24 mEQ/L (20-30); CHLORIDE 96 mEQ/L (98-107); CREATININE 0.6 mg/dL (0.5-0.9); HEMOLYSIS 12; POTASSIUM 4.7 mEQ/L (3.4-4.9); SODIUM 134 mEQ/L (135-145)
[2016-10-13] MEDS: Flonase Nasal Inhaler 16gm NASAL SCH ×2 (08:17→17:49)
[2016-10-13] MEDS: NUPLAZID 17 MG ORAL SCH (08:17)
[2016-10-13] MEDS: Pantoprazole Inj IV SCH (08:18)
[2016-10-13] MEDS: Metoprolol Tartrate 12.5mg TAB GT SCH ×2 (08:18→20:10)
[2016-10-13] MEDS: Bethanechol 10mg Tab ORAL SCH ×4 (08:18→21:12)
[2016-10-13] MEDS: DULoxetine 30mg cap ORAL SCH (08:18)
[2016-10-13] MEDS: Heparin 5000 units/ml inj SUBQ SCH ×2 (08:22→21:18)
[2016-10-13 11:11] LABS: OTHERS PATHOLOGIST COMMENT
--- NOTE | 2016-10-13 13:37 | Infectious Diseases Prog Note ---
Assessment/Plan Assessment/Plan A) 1) esbl e.coli uti, leukocytosis, tachycardia, ? sepsis, ? fungemia, fungal uti - leukocytosis resolving - clinically stable 2) fungemia risk, no diarrhea to suggest c.diff., ct scan abdomen and pelvis without abscess and no colitis mentioned on ct 3) s/p g-tube, dysphagia, atx, anemia, wounds noted and unlikely leukocytosis source 4) arthralgia, mur, as, depression, cps, anxiety, blindness, dementia, vesicoureteral reflux, alms, hemorrhoids 5) hypothyroidism, dyslipidemia, htn, gerd, compression fx, sleep apnea, glaucoma, encephalopathy, op, fx 6) allergies - negative, fh-nc, sh-negative, mar noted, notes and records reviewed 7) d/w Dr. BARRETT P) 1) meropenem x 7 days 2) diflucan x 7 days (can be changed to oral soon) 3) watch labs 4) wound care per protocol 5) continue other treatment per Dr. Stanley and consultants 6) orders noted and entered Subjective Constitutional: Reports: fatigue, other - alert and responsive, + generalized weakness, Denies: fever HEENT: Denies: congestion Respiratory: Denies: shortness of breath Cardiovascular: Denies: chest pain Gastrointestinal/Abdominal: Reports: other - no abdominal pain, Denies: diarrhea, nausea, vomiting Genitourinary: Reports: other - no lopez Neurologic: Reports: weakness, Denies: headache Psychiatric: Reports: no symptoms Skin: Denies: rash Hematologic: Denies: bleeding Musculoskeletal: Denies: pain Allergies: Coded Allergies: NO KNOWN ALLERGIES (Unverified Allergy, Unknown, 03/22/15) Objective Vital Signs Last 24 Hour Vital Signs Date Time Temp Pulse Resp B/P Pulse Ox O2 Delivery O2 Flow Rate FiO2 10/13/16 11:55 97.7 100 18 106/51 96 Room Air 10/13/16 08:18 116 105/52 10/13/16 08:00 97.8 116 18 105/52 Room Air 10/13/16 04:45 97.9 112 21 111/74 Room Air 10/13/16 00:03 98.2 118 21 121/60 Room Air 10/12/16 20:16 100 108/68 10/12/16 20:06 97.2 102 16 112/53 96 Room Air 10/12/16 16:52 112 10/12/16 16:01 98.2 121 20 112/59 97 Room Air Height (Feet): 5 Height (Inches): 2.00 Weight (Pounds): 130 General Appearance: no acute distress HEENT: normocephalic, atraumatic, anicteric, mucous membranes moist, EOMI, pharynx normal, supple, no JVD Respiratory/Chest: lungs clear, normal breath sounds, no respiratory distress, no accessory muscle use Cardiovascular: normal rate, regular rhythm, no gallop/murmur Abdomen: normal bowel sounds, soft, non tender, no organomegaly Genitourinary: other - no lopez Extremities: no cyanosis Skin: no rash 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 Complete 10/10/16 16:50 Urine,Clean Catch Urine Culture - Final Jennifer Albicans Complete 10/04/16 10:54 Rectum VRE Culture - Final NO VANCOMYCIN RESISTANT ENTEROCOCCUS ... Complete Microbiology Date/Time Source Procedure Growth Status 10/10/16 20:30 Blood Blood Culture - Preliminary NO GROWTH AFTER 48 HOURS Resulted 10/10/16 20:15 Blood Blood Culture - Preliminary NO GROWTH AFTER 48 HOURS Resulted 10/10/16 16:50 Urine,Clean Catch Urine Culture - Final Jennifer Albicans Complete Laboratory Tests Test 10/13/16 06:35 White Blood Count 13.3 K/UL (4.8-10.8) H Red Blood Count 3.41 M/UL (4.20-5.40) L Hemoglobin 8.5 G/DL (12.0-16.0) L Hematocrit 26.6 % (37.0-47.0) L Mean Corpuscular Volume 78 FL (80-99) L Mean Corpuscular Hemoglobin 24.8 PG (27.0-31.0) L Mean Corpuscular Hemoglobin Concent 31.8 G/DL (32.0-36.0) L Red Cell Distribution Width 14.9 % (11.6-14.8) H Platelet Count 438 K/UL (150-450) Mean Platelet Volume 6.3 FL (6.5-10.1) L Neutrophils (%) (Auto) 76.8 % (45.0-75.0) H Lymphocytes (%) (Auto) 12.5 % (20.0-45.0) L Monocytes (%) (Auto) 9.9 % (1.0-10.0) Eosinophils (%) (Auto) 0.4 % (0.0-3.0) Basophils (%) (Auto) 0.4 % (0.0-2.0) Sodium Level 134 mEQ/L (135-145) L Potassium Level 4.7 mEQ/L (3.4-4.9) Chloride Level 96 mEQ/L (98-107) L Carbon Dioxide Level 24 mEQ/L (20-30) Anion Gap 14 (5-15) Blood Urea Nitrogen 14 mg/dL (7-23) Creatinine 0.6 mg/dL (0.5-0.9) Estimat Glomerular Filtration Rate mL/min (>60) Glucose Level 115 mg/dL (74-106) H Calcium Level 8.8 mg/dL (8.6-10.2) Current Medications Medications (Trade) Dose Ordered Sig/Patricia Route PRN Reason Start Time Stop Time Status Last Admin Dose Admin Acetaminophen (Tylenol) 650 mg Q4H PRN ORAL Mild Pain (Pain Scale 1-3) 10/08/16 00:00 11/07/16 00:00 10/10/16 09:38 Acetaminophen (Tylenol) 650 mg Q4H PRN ORAL T>100.5 10/08/16 00:00 11/07/16 00:00 Acetaminophen (Tylenol) 650 mg Q4H PRN RECTAL Mild Pain (Pain Scale 1-3) 10/08/16 00:00 11/07/16 00:00 10/09/16 18:09 Acetaminophen (Tylenol) 650 mg Q4H PRN RECTAL T>100.5 10/08/16 00:00 11/07/16 00:00 Bethanechol Chloride 10 mg 10 mg FOUR TIMES A DAY ORAL 10/11/16 18:00 11/10/16 17:59 10/13/16 12:45 Clotrimazole (Lotrimin) 1 applic EVERY 12 HOURS TOPIC 10/07/16 23:00 11/06/16 22:59 10/13/16 10:18 Dextrose (Dextrose 50%) STAT PRN IV Hypoglycemia 10/08/16 16:30 11/07/16 16:29 Docusate Sodium (Colace) 100 mg Q12HR PRN GT Constipation 10/07/16 22:15 11/06/16 22:14 10/13/16 08:17 Duloxetine HCl (Cymbalta) 30 mg DAILY ORAL 10/08/16 09:00 11/07/16 08:59 10/13/16 08:18 Fluconazole/ Sodium Chloride (Diflucan 200mg/ 100ml Premix) 100 ml @ 100 mls/hr Q24H IV 10/11/16 20:00 10/18/16 19:59 10/12/16 20:15 Fluticasone Propionate (Flonase) 1 spray TWICE A DAY NASAL 10/08/16 09:00 11/07/16 08:59 10/13/16 08:17 Heparin Sodium (Porcine) (Heparin 5000 units/ml) 5,000 units EVERY 12 HOURS SUBQ 10/08/16 09:00 11/07/16 08:59 10/13/16 08:22 Latanoprost (Xalatan) 1 drop BEDTIME BOTH EYES 10/08/16 23:00 11/07/16 22:59 10/12/16 20:15 Levothyroxine Sodium (Synthroid) 88 mcg ACBREAKFAST GT 10/08/16 06:30 11/07/16 06:29 10/13/16 05:56 Lidocaine 1 patch 1 patch DAILY TDERMAL 10/09/16 14:00 11/08/16 13:59 10/13/16 08:20 Meropenem 1 gm/ Sodium Chloride 100 ml @ 200 mls/hr Q12H IVPB 10/11/16 21:00 10/16/16 20:59 10/13/16 08:17 Metoprolol Tartrate (Lopressor) 12.5 mg Q12HR GT 10/08/16 21:00 11/07/16 20:59 10/13/16 08:18 Pantoprazole (Protonix) 40 mg DAILY IV 10/08/16 09:00 11/07/16 08:59 10/13/16 08:18 Patient Own Medication (Patient's Own Med) 1 ea DAILY ORAL 10/08/16 09:00 11/07/16 08:59 10/13/16 08:17 Sodium Chloride (Sodium Chloride 1000ml bag) 1,000 ml @ 75 mls/hr [id number] IV 10/10/16 16:45 11/09/16 16:44 10/13/16 11:25 DAVIS WEINER October 13, 2016 13:37
--- NOTE | 2016-10-13 18:10 | Geriatric Progress Note ---
Assessment/Plan Problems: (1) Sacral decubitus ulcer, stage III (2) DEAN (acute kidney injury) (3) Sepsis (4) UTI (urinary tract infection) (5) Hypernatremia (6) Anxiety with somatization (7) Mitral regurgitation and aortic stenosis (8) Altered mental status (9) Chronic pain syndrome (10) Depression (11) Blindness (12) Vascular dementia (13) Volume depletion (14) Percutaneous endoscopic gastrostomy status (15) Hypophosphatemia (16) Hypomagnesemia (17) Leukocytosis, unspecified Assessment/Plan Patient improving with current regimen. Discussed with dtr, plan d/c tomorrow to complete antibiotics and mobilize as tolerated. Dictated #[id number] Discussed with: family, hospital staff Subjective Interval Events Patient continues to improve on present regimen with decreasing leukocytosis. Continue additional 5 days IV Meropenem and oral Diflucan. Discussed with dtr. She feels patient's psychosis not as well controlled on Nuplazid 17mg as prior Abilify. Discussed stiffness seen on antipsychotics, recommend trial at full dose Nuplazid. If not helpful, return to Abilify =/- neurontin. Dtr wishes placement at [place], will ask Dr. Michel to follow. Continue present approach otherwise. Subjective Still unable to elicit detailed responses. Geriatric Geriatric Last 24 Hour Vital Signs Date Time Temp Pulse Resp B/P Pulse Ox O2 Delivery O2 Flow Rate FiO2 10/13/16 16:02 97.5 108 18 108/68 98 Room Air 10/13/16 11:55 97.7 100 18 106/51 96 Room Air 10/13/16 08:18 116 105/52 10/13/16 08:00 97.8 116 18 105/52 Room Air 10/13/16 04:45 97.9 112 21 111/74 Room Air 10/13/16 00:03 98.2 118 21 121/60 Room Air 10/12/16 20:16 100 108/68 10/12/16 20:06 97.2 102 16 112/53 96 Room Air Intake and Output 10/12/16 10/13/16 19:00 07:00 Intake Total 1720 ml 1600 ml Balance 1720 ml 1600 ml Free Water 110 ml 100 ml IV Total 950 ml 950 ml Tube Feeding 660 ml 550 ml # Voids 4 Laboratory Tests Test 10/13/16 06:35 White Blood Count 13.3 K/UL (4.8-10.8) H Red Blood Count 3.41 M/UL (4.20-5.40) L Hemoglobin 8.5 G/DL (12.0-16.0) L Hematocrit 26.6 % (37.0-47.0) L Mean Corpuscular Volume 78 FL (80-99) L Mean Corpuscular Hemoglobin 24.8 PG (27.0-31.0) L Mean Corpuscular Hemoglobin Concent 31.8 G/DL (32.0-36.0) L Red Cell Distribution Width 14.9 % (11.6-14.8) H Platelet Count 438 K/UL (150-450) Mean Platelet Volume 6.3 FL (6.5-10.1) L Neutrophils (%) (Auto) 76.8 % (45.0-75.0) H Lymphocytes (%) (Auto) 12.5 % (20.0-45.0) L Monocytes (%) (Auto) 9.9 % (1.0-10.0) Eosinophils (%) (Auto) 0.4 % (0.0-3.0) Basophils (%) (Auto) 0.4 % (0.0-2.0) Sodium Level 134 mEQ/L (135-145) L Potassium Level 4.7 mEQ/L (3.4-4.9) Chloride Level 96 mEQ/L (98-107) L Carbon Dioxide Level 24 mEQ/L (20-30) Anion Gap 14 (5-15) Blood Urea Nitrogen 14 mg/dL (7-23) Creatinine 0.6 mg/dL (0.5-0.9) Estimat Glomerular Filtration Rate mL/min (>60) Glucose Level 115 mg/dL (74-106) H Calcium Level 8.8 mg/dL (8.6-10.2) Current Medications Medications (Trade) Dose Ordered Sig/Patricia Route PRN Reason Start Time Stop Time Status Last Admin Dose Admin Acetaminophen (Tylenol) 650 mg Q4H PRN ORAL Mild Pain (Pain Scale 1-3) 10/08/16 00:00 11/07/16 00:00 10/10/16 09:38 Acetaminophen (Tylenol) 650 mg Q4H PRN ORAL T>100.5 10/08/16 00:00 11/07/16 00:00 Acetaminophen (Tylenol) 650 mg Q4H PRN RECTAL Mild Pain (Pain Scale 1-3) 10/08/16 00:00 11/07/16 00:00 10/09/16 18:09 Acetaminophen (Tylenol) 650 mg Q4H PRN RECTAL T>100.5 10/08/16 00:00 11/07/16 00:00 Bethanechol Chloride 10 mg 10 mg FOUR TIMES A DAY ORAL 10/11/16 18:00 11/10/16 17:59 10/13/16 17:48 Clotrimazole (Lotrimin) 1 applic EVERY 12 HOURS TOPIC 10/07/16 23:00 11/06/16 22:59 10/13/16 10:18 Dextrose (Dextrose 50%) STAT PRN IV Hypoglycemia 10/08/16 16:30 11/07/16 16:29 Docusate Sodium (Colace) 100 mg Q12HR PRN GT Constipation 10/07/16 22:15 11/06/16 22:14 10/13/16 08:17 Duloxetine HCl (Cymbalta) 30 mg DAILY ORAL 10/08/16 09:00 11/07/16 08:59 10/13/16 08:18 Fluconazole (Diflucan) 200 mg QHS NG 10/13/16 21:00 10/18/16 20:59 Fluticasone Propionate (Flonase) 1 spray TWICE A DAY NASAL 10/08/16 09:00 11/07/16 08:59 10/13/16 17:49 Heparin Sodium (Porcine) (Heparin 5000 units/ml) 5,000 units EVERY 12 HOURS SUBQ 10/08/16 09:00 11/07/16 08:59 10/13/16 08:22 Latanoprost (Xalatan) 1 drop BEDTIME BOTH EYES 10/08/16 23:00 11/07/16 22:59 10/12/16 20:15 Levothyroxine Sodium (Synthroid) 88 mcg ACBREAKFAST GT 10/08/16 06:30 11/07/16 06:29 10/13/16 05:56 Lidocaine 1 patch 1 patch DAILY TDERMAL 10/09/16 14:00 11/08/16 13:59 5/8/17 08:20 Meropenem/Sodium Chloride (Merrem/Sodium Chloride) 100 ml @ 200 mls/hr Q12H IVPB 10/11/16 21:00 10/16/16 20:59 10/13/16 08:17 Metoprolol Tartrate (Lopressor) 12.5 mg Q12HR GT 10/08/16 21:00 11/07/16 20:59 10/13/16 08:18 Pantoprazole (Protonix) 40 mg DAILY IV 10/08/16 09:00 11/07/16 08:59 10/13/16 08:18 Patient Own Medication (Patient's Own Med) 1 ea DAILY ORAL 10/08/16 09:00 11/07/16 08:59 10/13/16 08:17 Sodium Chloride (Sodium Chloride 1000ml bag) 1,000 ml @ 75 mls/hr [id number] IV 10/10/16 16:45 11/09/16 16:44 10/13/16 11:25 Height (Feet): 5 Height (Inches): 2.00 Weight (Pounds): 130 General Appearance: alert, other - hypophoni speech Head: normocephalic Eyes: bilateral anicteric Neck: no mass Respiratory: decreased breath sounds Cardiovascular: regular rate, rhythm Gastrointestinal: normal bowel sounds, non tender, soft, no mass, no organomegaly, non-distended Musculoskeletal: no calf tenderness Edema: no edema noted Generalized Neurologic: no new focality KERRI GUILLEN October 13, 2016 18:10
[2016-10-13] MEDS ORDERED: DIFLUCAN100 MG NG (18:17)
[2016-10-13] MEDS ORDERED: LOPRESSOR25 M1 GT (18:17)
[2016-10-13] MEDS ORDERED: URECHOLINE10 MG ORAL (18:17)
[2016-10-13] MEDS ORDERED: Patient's Own Med ORAL (18:17)
[2016-10-13] MEDS ORDERED: MEROPENEM1 GM IV (18:17)
[2016-10-13] MEDS ORDERED: Fluconazole 100mg tab NG SCH (21:00)
--- NOTE | 2016-10-13 22:22 | General Progress Note ---
Assessment/Plan Assessment/Plan Assessment - Poor po --> PEG - dehydration, hypernatremia - anemia - UTI - Azotemia - improved - Leukocytosis - AMS - ? toxic metabolic Recommendation - Tube feeds - IVF - Abx - follow labs - ? Neuro eval - recheck swallow eval in am, per family request - follow WBC Subjective Allergies: Coded Allergies: NO KNOWN ALLERGIES (Unverified Allergy, Unknown, 03/22/15) Subjective d/w DTR and niece at length all questions answered they want pt mental status to be back to prior baseline they want patient to eat by mouth Objective Last 24 Hour Vital Signs Date Time Temp Pulse Resp B/P Pulse Ox O2 Delivery O2 Flow Rate FiO2 10/13/16 20:10 99 100/47 10/13/16 20:00 97.9 99 20 100/47 99 Room Air 10/13/16 16:02 97.5 108 18 108/68 98 Room Air 10/13/16 11:55 97.7 100 18 106/51 96 Room Air 10/13/16 08:18 116 105/52 10/13/16 08:00 97.8 116 18 105/52 Room Air 10/13/16 04:45 97.9 112 21 111/74 Room Air 10/13/16 00:03 98.2 118 21 121/60 Room Air Intake and Output 10/12/16 10/13/16 19:00 07:00 Intake Total 1720 ml 1600 ml Balance 1720 ml 1600 ml Free Water 110 ml 100 ml IV Total 950 ml 950 ml Tube Feeding 660 ml 550 ml # Voids 4 Laboratory Tests 10/13/16 06:35: White Blood Count 13.3H, Red Blood Count 3.41L, Hemoglobin 8.5L, Hematocrit 26.6L, Mean Corpuscular Volume 78L, Mean Corpuscular Hemoglobin 24.8L, Mean Corpuscular Hemoglobin Concent 31.8L, Red Cell Distribution Width 14.9H, Platelet Count 438, Mean Platelet Volume 6.3L, Neutrophils (%) (Auto) 76.8H, Lymphocytes (%) (Auto) 12.5L, Monocytes (%) (Auto) 9.9, Eosinophils (%) (Auto) 0.4, Basophils (%) (Auto) 0.4, Sodium Level 134L, Potassium Level 4.7, Chloride Level 96L, Carbon Dioxide Level 24, Anion Gap 14, Blood Urea Nitrogen 14, Creatinine 0.6, Estimat Glomerular Filtration Rate , Glucose Level 115H, Calcium Level 8.8 Height (Feet): 5 Height (Inches): 2.00 Weight (Pounds): 130 Objective Thin elderly WW NCAT supple CTA RRR abd soft ND NT, (+)GT, wound OK, no discharge no edema OBS ASHWINI MORRIS October 13, 2016 22:22
--- NOTE | 2016-10-13 22:50 | General Progress Note ---
Assessment/Plan Assessment/Plan Assessment - Poor po --> PEG - dehydration, hypernatremia - anemia - UTI - Azotemia - improved - Leukocytosis - AMS - ? toxic metabolic Recommendation - Tube feeds - IVF - Abx - follow labs - Neuro eval - d/c plannning - follow WBC Subjective Allergies: Coded Allergies: NO KNOWN ALLERGIES (Unverified Allergy, Unknown, 03/22/15) Subjective patient responds in weak voice failed swallow eval today on TF Objective Last 24 Hour Vital Signs Date Time Temp Pulse Resp B/P Pulse Ox O2 Delivery O2 Flow Rate FiO2 10/13/16 20:10 99 100/47 10/13/16 20:00 97.9 99 20 100/47 99 Room Air 10/13/16 16:02 97.5 108 18 108/68 98 Room Air 10/13/16 11:55 97.7 100 18 106/51 96 Room Air 10/13/16 08:18 116 105/52 10/13/16 08:00 97.8 116 18 105/52 Room Air 10/13/16 04:45 97.9 112 21 111/74 Room Air 10/13/16 00:03 98.2 118 21 121/60 Room Air Intake and Output 10/12/16 10/13/16 19:00 07:00 Intake Total 1720 ml 1600 ml Balance 1720 ml 1600 ml Free Water 110 ml 100 ml IV Total 950 ml 950 ml Tube Feeding 660 ml 550 ml # Voids 4 Laboratory Tests 10/13/16 06:35: White Blood Count 13.3H, Red Blood Count 3.41L, Hemoglobin 8.5L, Hematocrit 26.6L, Mean Corpuscular Volume 78L, Mean Corpuscular Hemoglobin 24.8L, Mean Corpuscular Hemoglobin Concent 31.8L, Red Cell Distribution Width 14.9H, Platelet Count 438, Mean Platelet Volume 6.3L, Neutrophils (%) (Auto) 76.8H, Lymphocytes (%) (Auto) 12.5L, Monocytes (%) (Auto) 9.9, Eosinophils (%) (Auto) 0.4, Basophils (%) (Auto) 0.4, Sodium Level 134L, Potassium Level 4.7, Chloride Level 96L, Carbon Dioxide Level 24, Anion Gap 14, Blood Urea Nitrogen 14, Creatinine 0.6, Estimat Glomerular Filtration Rate , Glucose Level 115H, Calcium Level 8.8 Height (Feet): 5 Height (Inches): 2.00 Weight (Pounds): 130 Objective Thin elderly WW NCAT supple CTA RRR abd soft ND NT, (+)GT, wound OK, no discharge no edema OBS ASHWINI MORRIS October 13, 2016 22:50
[2016-10-14 04:00] VITALS: BP 122/71
[2016-10-14 08:21] VITALS: BP 106/49
[2016-10-14] MEDS: Pantoprazole Inj IV SCH (08:35)
[2016-10-14] MEDS: DULoxetine 30mg cap ORAL SCH (08:36)
[2016-10-14] MEDS: Flonase Nasal Inhaler 16gm NASAL SCH (08:36)
[2016-10-14] MEDS: Metoprolol Tartrate 12.5mg TAB GT SCH (08:36)
[2016-10-14] MEDS: Bethanechol 10mg Tab ORAL SCH ×2 (08:36→12:34)
[2016-10-14] MEDS: Heparin 5000 units/ml inj SUBQ SCH (08:41)
[2016-10-14] MEDS ORDERED: NUPLAZID 17 MG ORAL SCH (09:00)
--- NOTE | 2016-10-14 10:40 | Infectious Diseases Prog Note ---
Assessment/Plan Assessment/Plan A) 1) esbl e.coli uti, leukocytosis, tachycardia, ? sepsis, ? fungemia, fungal uti - leukocytosis resolving - clinically improved, more alert 2) fungemia risk, no diarrhea to suggest c.diff., ct scan abdomen and pelvis without abscess and no colitis mentioned on ct 3) s/p g-tube, dysphagia, atx, anemia, wounds noted and unlikely leukocytosis source 4) arthralgia, mur, as, depression, cps, anxiety, blindness, dementia, vesicoureteral reflux, alms, hemorrhoids 5) hypothyroidism, dyslipidemia, htn, gerd, compression fx, sleep apnea, glaucoma, encephalopathy, op, fx 6) allergies - negative, fh-nc, sh-negative, mar noted, notes and records reviewed 7) d/w Dr. BARRETT P) 1) meropenem x 6 days 2) diflucan x 6 days (can be changed to oral soon) 3) watch labs 4) wound care per protocol 5) continue other treatment per Dr. Stanley and consultants 6) orders noted and entered 7) d/w daughter at bedside Subjective Constitutional: Denies: fever HEENT: Denies: congestion Respiratory: Denies: shortness of breath Cardiovascular: Denies: chest pain Gastrointestinal/Abdominal: Denies: diarrhea, nausea, vomiting Genitourinary: Reports: other - no lopez Neurologic: Denies: headache Psychiatric: Denies: depression Skin: Denies: rash Hematologic: Denies: bleeding Musculoskeletal: Denies: pain Allergies: Coded Allergies: NO KNOWN ALLERGIES (Unverified Allergy, Unknown, 03/22/15) Objective Vital Signs Last 24 Hour Vital Signs Date Time Temp Pulse Resp B/P Pulse Ox O2 Delivery O2 Flow Rate FiO2 10/14/16 08:36 112 106/49 10/14/16 08:21 97.3 112 20 106/49 97 Room Air 10/14/16 04:00 97.9 99 20 122/71 99 Room Air 10/13/16 23:53 98.3 103 18 102/48 100 Room Air 10/13/16 20:10 99 100/47 10/13/16 20:00 97.9 99 20 100/47 99 Room Air 10/13/16 16:02 97.5 108 18 108/68 98 Room Air 10/13/16 11:55 97.7 100 18 106/51 96 Room Air Height (Feet): 5 Height (Inches): 2.00 Weight (Pounds): 130 General Appearance: no acute distress HEENT: normocephalic, atraumatic, anicteric, mucous membranes moist, PERRL, EOMI, pharynx normal, supple, no JVD Respiratory/Chest: lungs clear, normal breath sounds, no respiratory distress, no accessory muscle use Cardiovascular: normal rate, regular rhythm, no gallop/murmur, no JVD Abdomen: normal bowel sounds, soft, non tender, no organomegaly, non distended Genitourinary: other - no lopez Extremities: no cyanosis Skin: no rash 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 Complete 10/10/16 16:50 Urine,Clean Catch Urine Culture - Final Jennifer Albicans Complete 10/04/16 10:54 Rectum VRE Culture - Final NO VANCOMYCIN RESISTANT ENTEROCOCCUS ... Complete Labs Test 10/12/16 06:05 10/13/16 06:35 White Blood Count 15.6 K/UL (4.8-10.8) 13.3 K/UL (4.8-10.8) Red Blood Count 3.62 M/UL (4.20-5.40) 3.41 M/UL (4.20-5.40) Hemoglobin 9.0 G/DL (12.0-16.0) 8.5 G/DL (12.0-16.0) Hematocrit 28.1 % (37.0-47.0) 26.6 % (37.0-47.0) Mean Corpuscular Volume 78 FL (80-99) 78 FL (80-99) Mean Corpuscular Hemoglobin 24.9 PG (27.0-31.0) 24.8 PG (27.0-31.0) Mean Corpuscular Hemoglobin Concent 32.1 G/DL (32.0-36.0) 31.8 G/DL (32.0-36.0) Red Cell Distribution Width 14.6 % (11.6-14.8) 14.9 % (11.6-14.8) Platelet Count 404 K/UL (150-450) 438 K/UL (150-450) Mean Platelet Volume 7.1 FL (6.5-10.1) 6.3 FL (6.5-10.1) Neutrophils (%) (Auto) 73.4 % (45.0-75.0) 76.8 % (45.0-75.0) Lymphocytes (%) (Auto) 15.0 % (20.0-45.0) 12.5 % (20.0-45.0) Monocytes (%) (Auto) 10.6 % (1.0-10.0) 9.9 % (1.0-10.0) Eosinophils (%) (Auto) 0.6 % (0.0-3.0) 0.4 % (0.0-3.0) Basophils (%) (Auto) 0.5 % (0.0-2.0) 0.4 % (0.0-2.0) Sodium Level 134 mEQ/L (135-145) Potassium Level 4.7 mEQ/L (3.4-4.9) Chloride Level 96 mEQ/L (98-107) Carbon Dioxide Level 24 mEQ/L (20-30) Anion Gap 14 (5-15) Blood Urea Nitrogen 14 mg/dL (7-23) Creatinine 0.6 mg/dL (0.5-0.9) Estimat Glomerular Filtration Rate mL/min (>60) Glucose Level 115 mg/dL (74-106) Calcium Level 8.8 mg/dL (8.6-10.2) Current Medications Medications (Trade) Dose Ordered Sig/Patricia Route PRN Reason Start Time Stop Time Status Last Admin Dose Admin Acetaminophen (Tylenol) 650 mg Q4H PRN ORAL Mild Pain (Pain Scale 1-3) 10/08/16 00:00 11/07/16 00:00 10/10/16 09:38 Acetaminophen (Tylenol) 650 mg Q4H PRN ORAL T>100.5 10/08/16 00:00 11/07/16 00:00 Acetaminophen (Tylenol) 650 mg Q4H PRN RECTAL Mild Pain (Pain Scale 1-3) 10/08/16 00:00 11/07/16 00:00 10/09/16 18:09 Acetaminophen (Tylenol) 650 mg Q4H PRN RECTAL T>100.5 10/08/16 00:00 11/07/16 00:00 Bethanechol Chloride 10 mg 10 mg FOUR TIMES A DAY ORAL 10/11/16 18:00 11/10/16 17:59 10/14/16 08:36 Clotrimazole (Lotrimin) 1 applic EVERY 12 HOURS TOPIC 10/07/16 23:00 11/06/16 22:59 10/14/16 08:49 Dextrose (Dextrose 50%) STAT PRN IV Hypoglycemia 10/08/16 16:30 11/07/16 16:29 Docusate Sodium (Colace) 100 mg Q12HR PRN GT Constipation 10/07/16 22:15 11/06/16 22:14 10/13/16 08:17 Duloxetine HCl (Cymbalta) 30 mg DAILY ORAL 10/08/16 09:00 11/07/16 08:59 10/14/16 08:36 Fluconazole (Diflucan) 200 mg QHS NG 10/13/16 21:00 10/18/16 20:59 10/13/16 21:12 Fluticasone Propionate (Flonase) 1 spray TWICE A DAY NASAL 10/08/16 09:00 11/07/16 08:59 10/14/16 08:36 Heparin Sodium (Porcine) (Heparin 5000 units/ml) 5,000 units EVERY 12 HOURS SUBQ 10/08/16 09:00 11/07/16 08:59 10/14/16 08:41 Latanoprost (Xalatan) 1 drop BEDTIME BOTH EYES 10/08/16 23:00 11/07/16 22:59 10/13/16 21:13 Levothyroxine Sodium (Synthroid) 88 mcg ACBREAKFAST GT 10/08/16 06:30 11/07/16 06:29 10/14/16 06:23 Lidocaine 1 patch 1 patch DAILY TDERMAL 10/09/16 14:00 11/08/16 13:59 10/14/16 08:35 Meropenem/Sodium Chloride (Merrem/Sodium Chloride) 100 ml @ 200 mls/hr Q12H IVPB 10/11/16 21:00 10/16/16 20:59 10/14/16 08:35 Metoprolol Tartrate (Lopressor) 12.5 mg Q12HR GT 10/08/16 21:00 11/07/16 20:59 10/14/16 08:36 Pantoprazole (Protonix) 40 mg DAILY IV 10/08/16 09:00 11/07/16 08:59 10/14/16 08:35 Patient Own Medication (Patient's Own Med) 2 ea DAILY ORAL 10/14/16 09:00 11/13/16 08:59 10/14/16 08:35 Sodium Chloride (Sodium Chloride 1000ml bag) 1,000 ml @ 75 mls/hr [id number] IV 10/10/16 16:45 11/09/16 16:44 10/13/16 11:25 DAVIS WEINER October 14, 2016 10:40
[2016-10-14 11:39] VITALS: BP 108/53
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
--- NOTE | 2016-10-14 13:30 | General Progress Note ---
Assessment/Plan Assessment/Plan Assessment - Poor po --> PEG - dehydration, hypernatremia - anemia - UTI - Azotemia - improved - Leukocytosis - AMS - ? toxic metabolic Recommendation - Tube feeds - IVF - Abx - follow labs - Neuro eval - d/c plannning Subjective Allergies: Coded Allergies: NO KNOWN ALLERGIES (Unverified Allergy, Unknown, 03/22/15) Subjective no events overnight minimally interactive for d/c today Objective Last 24 Hour Vital Signs Date Time Temp Pulse Resp B/P Pulse Ox O2 Delivery O2 Flow Rate FiO2 10/14/16 11:39 97.9 21 108/53 97 Room Air 10/14/16 08:36 112 106/49 10/14/16 08:21 97.3 112 20 106/49 97 Room Air 10/14/16 04:00 97.9 99 20 122/71 99 Room Air 10/13/16 23:53 98.3 103 18 102/48 100 Room Air 10/13/16 20:10 99 100/47 10/13/16 20:00 97.9 99 20 100/47 99 Room Air 10/13/16 16:02 97.5 108 18 108/68 98 Room Air Intake and Output 10/13/16 10/14/16 19:00 07:00 Intake Total 1705 ml 1125 ml Balance 1705 ml 1125 ml Free Water 250 ml 100 ml IV Total 850 ml 475 ml Tube Feeding 605 ml 550 ml # Voids 1 6 Height (Feet): 5 Height (Inches): 2.00 Weight (Pounds): 130 Objective Thin elderly WW NCAT supple CTA RRR abd soft ND NT, (+)GT, wound OK, no discharge no edema OBS ASHWINI MORRIS October 14, 2016 13:30
[2016-10-14] MEDS ORDERED: Sterile Water Irrig 1000ml IRRIG ONE (13:44)
[2016-10-14] MEDS ORDERED: Tubing IV Secondary IV ONE (13:44)
== END 2016-10-14 13:45 | DRG 871 ==
LOC: EMR 11:20 → 2E 12:13 → EDBEDREQ 14:58 → 4W 10-07 21:25
PROC: 0DH63UZ Insertion of Feeding Device into Stomach, Percutaneous Approach (ICD-10-PCS; principal; 2016-10-06 09:00)
DX: A41.9 Sepsis, unspecified organism (principal); L89.153 Pressure ulcer of sacral region, stage 3; N17.9 Acute kidney failure, unspecified; E87.0 Hyperosmolality and hypernatremia; G93.41 Metabolic encephalopathy; L89.210 Pressure ulcer of right hip, unstageable; N39.0 Urinary tract infection, site not specified; B48.8 Other specified mycoses; M48.50XA Collapsed vertebra, not elsewhere classified, site unspecified, initial encounter for fracture; F01.50 Vascular dementia, unspecified severity, without behavioral disturbance, psychotic disturbance, mood disturbance, and anxiety; R63.0 Anorexia; E86.9 Volume depletion, unspecified; G89.4 Chronic pain syndrome; R13.10 Dysphagia, unspecified; I35.0 Nonrheumatic aortic (valve) stenosis; I34.0 Nonrheumatic mitral (valve) insufficiency; R62.7 Adult failure to thrive; B96.20 Unspecified Escherichia coli [E. coli] as the cause of diseases classified elsewhere; Z16.12 Extended spectrum beta lactamase (ESBL) resistance; F31.9 Bipolar disorder, unspecified; E78.5 Hyperlipidemia, unspecified; I10 Essential (primary) hypertension; G47.30 Sleep apnea, unspecified; M81.0 Age-related osteoporosis without current pathological fracture; M75.02 Adhesive capsulitis of left shoulder; H54.0 Blindness, both eyes; K21.9 Gastro-esophageal reflux disease without esophagitis; H40.9 Unspecified glaucoma; R53.1 Weakness; Z99.3 Dependence on wheelchair; M50.30 Other cervical disc degeneration, unspecified cervical region; E86.0 Dehydration; F41.8 Other specified anxiety disorders; D64.9 Anemia, unspecified; E83.39 Other disorders of phosphorus metabolism; E83.42 Hypomagnesemia; L89.621 Pressure ulcer of left heel, stage 1; L89.610 Pressure ulcer of right heel, unstageable; L89.899 Pressure ulcer of other site, unspecified stage; L89.510 Pressure ulcer of right ankle, unstageable
CPT/HCPCS: 36415; 71010; 74176; 80048; 80053; 80170; 81001; 81003; 82550; 82553; 82962; 83605; 83735; 84100; 84484; 85007; 85025; 85610; 85730; 87040; 87081; 87086; 87181; 93005; 94003; 94150; J2250